=== PATIENT | male | born 1940 | race Caucasian/White ===

== ENCOUNTER → 2017-03-01 | Outpatient (CLI) | payer OTHER ==
[~2017-03-01] MED LIST: ATOR10TA82 PO; BACL10TA PO; CYM/30 PO; DICY20TA10 PO; DIPH-437 PO; FINA5TAB PO; FOLI1TAB7 PO; NXM/40 PO
[2017-03-01 12:28] LABS: ALT/SGPT 27 U/L (12-78); BLOOD UREA NITROGEN 23 mg/dl (7-18); BUN/CREATININE RATIO 23.9 (10-20); CARBON DIOXIDE 28 mmol/L (21-32); CHLORIDE 107 mmol/L (98-107); CHOLESTEROL 167 mg/dl (0-200); CREATININE 0.98 mg/dl (0.60-1.40); GLUCOSE 99 mg/dl (70-99); POTASSIUM 4.3 mmol/L (3.5-5.1); SODIUM 143 mmol/L (136-145); TRIGLYCERIDES 281 mg/dl (0-150); VERY LOW DENSITY LIPOPROT CALC 56 mg/dl
[2017-03-01 12:33] LABS: ALB/GLOB RATIO 1.2 (0.9-2); ALKALINE PHOSPHATASE 57 U/L (45-117); AST/SGOT 18 U/L (15-37); CHOLESTEROL/HDL RATIO 5.6; HDL CHOLESTEROL 30 mg/dl; LDL CHOLESTEROL CALCULATED 81 mg/dl; PROSTATE SPECIFIC ANTIGEN 0.682 ng/ml (0.000-4.000)
[2017-03-01 12:35] LABS: CALCIUM 8.7 mg/dl (8.5-10.1)
== END | disposition home or self-care (01) ==
LOC: C.LABBFT 07:50
PROVIDERS: ATTEND Nurse Practitioner Family
DX: N40.1 Benign prostatic hyperplasia with lower urinary tract symptoms (principal); G89.29 Other chronic pain; E78.00 Pure hypercholesterolemia, unspecified

== ENCOUNTER → 2017-06-14 | Outpatient (CLI) | payer OTHER ==
[~2017-06-14] MED LIST changes: -ATOR10TA82 PO; +ATOR10TA88 PO
[2017-06-14 14:52] LABS: BLOOD UREA NITROGEN 13 mg/dl (7-18); CREATININE 0.76 mg/dl (0.60-1.40)
== END | disposition home or self-care (01) ==
LOC: C.LAB 12:42
PROVIDERS: ATTEND Orthopaedic Surgery Sports Medicine
DX: Z01.812 Encounter for preprocedural laboratory examination (principal)

== ENCOUNTER → 2017-09-06 | Outpatient (CLI) | payer OTHER ==
[~2017-09-06] MED LIST changes: +ATOR10TA82 PO; -ATOR10TA88 PO; -FOLI1TAB7 PO; +FOLI1TAB8 PO
[2017-09-06 09:39] LABS: BASO % 0.4 %; BASO ABS # 0.02 K/uL (0-0.2); COMPLETE YES; EOS % 2.5 %; HEMATOCRIT 44.3 % (42-52); IG% 0.2 %; LYMPH % 36.5 %; LYMPH ABS # 1.86 K/uL (1.2-3.4); MEAN CELL VOLUME 95.7 fL (80-100); MEAN CORPUSCULAR HGB CONC 33.4 g/dl (32-36); MEAN PLATELET VOLUME 10.3 fL (7.4-10.4); MONO % 11.2 %; NEUT % 49.2 %; PLATELET COUNT 185 K/uL (130-400); RED BLOOD COUNT 4.63 M/uL (4.7-6.1)
[2017-09-06 10:19] LABS: ALT/SGPT 26 U/L (12-78); BLOOD UREA NITROGEN 19 mg/dl (7-18); BUN/CREATININE RATIO 25.3 (10-20); CALCIUM 8.5 mg/dl (8.5-10.1); CARBON DIOXIDE 27 mmol/L (21-32); CHLORIDE 107 mmol/L (98-107); CHOLESTEROL 133 mg/dl (0-200); CREATININE 0.73 mg/dl (0.60-1.40); GLUCOSE 84 mg/dl (70-99); POTASSIUM 3.9 mmol/L (3.5-5.1); SODIUM 140 mmol/L (136-145); TRIGLYCERIDES 144 mg/dl (0-150); VERY LOW DENSITY LIPOPROT CALC 29 mg/dl
[2017-09-06 10:22] LABS: ALB/GLOB RATIO 1.2 (0.9-2); ALKALINE PHOSPHATASE 60 U/L (45-117); AST/SGOT 15 U/L (15-37); HDL CHOLESTEROL 33 mg/dl; LDL CHOLESTEROL CALCULATED 71 mg/dl
== END | disposition home or self-care (01) ==
LOC: C.LAB 09:04
PROVIDERS: ATTEND Nurse Practitioner Family
DX: E78.00 Pure hypercholesterolemia, unspecified (principal); K21.9 Gastro-esophageal reflux disease without esophagitis; J31.0 Chronic rhinitis; G89.29 Other chronic pain; F32.9 Major depressive disorder, single episode, unspecified; N40.1 Benign prostatic hyperplasia with lower urinary tract symptoms

== ENCOUNTER → 2017-09-17 | Outpatient (CLI) | payer OTHER ==
[~2017-09-17] MED LIST changes: +CHOL4POW3 PO; +VLT/75 PO
--- NOTE | 2017-09-17 17:19 | DIAGNOSTIC IMAGING REPORT ---
CERVICAL WITHOUT CONTRAST CLINICAL HISTORY: 77 years-old Male presenting with M54.12 Cervical radiculopathy at [id number]. TECHNIQUE: Multisequence, multiplanar MR imaging of the cervical spine was performed without the use of intravenous contrast. IV contrast: None. COMPARISON: None. FINDINGS: Localizer images: Unremarkable. Normal cervical lordosis. Vertebral bodies maintain normal height, alignment, and bone marrow signal intensity. Mild diffuse disc desiccation without height loss. Disc osteophyte complexes noted to varying degrees at nearly every level. Multilevel degenerative changes further detailed below: C2-3: Disc osteophyte complex. No significant neural foraminal or spinal canal narrowing. C3-4: Disc osteophyte complex and uncovertebral hypertrophy result in mild effacement of the anterior thecal sac and slight contouring of the spinal cord. Mild bilateral neural foraminal narrowing, left greater than right. C4-5: Disc osteophyte complex, left uncovertebral hypertrophy and left facet arthropathy result in moderate to severe left neural foraminal narrowing as well as effacement of the anterior thecal sac and left lateral recess. No right neural foraminal narrowing. C5-6: Disc osteophyte complex. Mild lateral neural foraminal narrowing, right greater than left. Minimal effacement of the ventral thecal sac. C6-7: Minimal disc osteophyte complex and left uncovertebral hypertrophy results in mild left neural foraminal narrowing. No significant spinal canal narrowing. C7-T1: No significant spinal canal or neural foraminal narrowing. Perineural cyst may present on the right. Spinal cord maintains normal morphology and signal intensity apart from mild contouring of the anterior aspect at C3-4 as mentioned above. Craniocervical junction normal. No paraspinal muscular edema. No epidural collection. IMPRESSION: 1. Multilevel degenerative changes most significant at C4-5 where there is moderate to severe left neural foraminal narrowing. Additional neural foraminal narrowing as detailed above. Spinal canal narrowing most significant at C3-4. No evidence of spinal cord impingement. Electronically signed by: Eduin Owens M.D. 09/17/2017 5:18 PM Dictated Date/Time: 09/17/2017 5:13 PM
== END | disposition home or self-care (01) ==
LOC: C.MRI 16:29
PROVIDERS: ATTEND Nurse Practitioner Family
DX: M47.892 Other spondylosis, cervical region (principal)

== ENCOUNTER → 2017-12-09 | Outpatient (CLI) | payer OTHER | END | disposition home or self-care (01) | LOC: C.CPL 12:07 | PROVIDERS: ATTEND Orthopaedic Surgery | DX: G56.21 Lesion of ulnar nerve, right upper limb (principal) ==

== ENCOUNTER 2017-12-11 11:14 | Emergency (ER) | payer OTHER ==
[~2017-12-11] VITALS: Ht 177.8 cm; Wt 100.0 kg
[~2017-12-11 11:14] MED LIST changes: -CHOL4POW3 PO; -VLT/75 PO
[2017-12-11 11:18] VITALS: TEMP 36.7; Ht 177.8 cm; Wt 100.0 kg
[2017-12-11] MEDS ORDERED: VLT/75 PO (11:47)
[2017-12-11] MEDS ORDERED: CHOL4POW3 PO (11:48)
--- NOTE | 2017-12-11 13:28 | EMERGENCY ROOM VISIT NOTE ---
ED Visit Note First contact with patient: 11:36 I have personally seen and evaluated the patient with the physician physical therapy assistant. I agree with the diagnostic/management decisions and have personally been involved in these decisions and agree with the diagnosis.
--- NOTE | 2017-12-11 13:52 | DIAGNOSTIC IMAGING REPORT ---
R VENOUS DOPP LOWER EXT UNILAT CLINICAL HISTORY: R lower leg edema/pain pain. Edema. TECHNIQUE: Venous Doppler COMPARISON STUDY: None FINDINGS: Normal venous flow throughout. Compressibility and augmentation characteristics are unremarkable. Fibrous stranding right popliteal vein suggestive of old deep venous thrombosis. IMPRESSION: 1. Study is negative for acute deep venous thrombosis. 2. Scarring right popliteal vein The above report was generated using voice recognition software. It may contain grammatical, syntax or spelling errors. Electronically signed by: Fritz Lynn M.D. 12/11/2017 1:51 PM Dictated Date/Time: 12/11/2017 1:50 PM
[2017-12-11 14:22] VITALS: BP 138/79; PULSE 71; O2SAT 98
--- NOTE | 2017-12-12 07:19 | EMERGENCY ROOM VISIT NOTE ---
History First contact with patient: 11:36 Chief Complaint: LEG PAIN,LEG INJURY Stated Complaint: POSSIBLE BLOOD CLOT IN R LEG History of Present Illness The patient is a 77 year old white male who presents to the Emergency Room with complaints of swelling in the right lower leg that developed yesterday. He also notes some pain in his calf. Patient does go to the gym. He states he did not do any activity out of his normal routine. He does some light weightlifting as well as use of the stationary bike. He has a history of DVT and is concerned that he has another. No trauma to the right leg. He complains of pain in the dorsum of his right foot. No symptoms in the left leg. No shortness of breath. He denies any recent prolonged travel. No recent flights. No treatment yet. No other complaints. His accompanies him today. Review of Systems REVIEW OF SYSTEM: HEENT: No dizziness, visual problems, hearing loss, or tinnitus. There is no difficulty swallowing and no oral lesions are present. PULMONARY: No cough, shortness of breath, sputum production or hemoptysis. CARDIOVASCULAR: No chest pain, palpitations, shortness of breath or peripheral edema. GASTROINTESTINAL: No diarrhea, constipation, nausea, vomiting, or abdominal pain. GENITOURINARY: No dysuria, frequency, urgency or nocturia. NEUROLOGIC: No weakness, muscle tenderness, epilepsy or history of neurological problems. MUSCULOSKELETAL: No history of joint tenderness/swelling. Positive history of arthritis and arthralgias. SKIN: No rashes or lesions. PSYCHIATRIC: No history of depression or mental illness. ENDOCRINE: No history of diabetes, thyroid disorders, or abnormal hair growth. Past Medical/Surgical History Medical Problems: (1) Blood clot (2) Sciatica (3) Serum cholesterol borderline high Previous surgeries: Right total knee replacement 2010, rotator cuff repair 2012 Family History No pertinent family history Significant for diabetes, heart disease, and cancer. Parents are . Social History Smoking Status: Former Smoker Smokeless Tobacco Use: No Alcohol Use: none Drug Use: none Marital Status: Housing Status: lives with family Occupation Status: retired Current/Historical Medications Scheduled Acetaminophen/Diphenhydramine (Tylenol Pm), 2 TAB PO HS Atorvastatin (Lipitor), 10 MG PO HS Baclofen (Lioresal), 10 MG PO TID Cholestyramine (Cholestyramine), 1 DOSE PO BID Diclofenac Sod (Diclofenac Sodium Dr), 75 MG PO BID Duloxetine HCl (Cymbalta), 1 CAP PO BID Esomeprazole Magnesium (Nexium), 40 MG PO QAM Finasteride (Proscar), 5 MG PO QAM Folic Acid (Folvite), 6 MG PO BID Allergies Coded Allergies: Codeine (Verified Allergy, Mild, ITCHING, 05/13/16) Physical Exam Vital Signs Date Time Temp Pulse Resp B/P (MAP) Pulse Ox O2 Delivery O2 Flow Rate FiO2 12/11/17 14:22 71 20 138/79 98 Room Air 12/11/17 12:57 63 18 122/73 97 Room Air 12/11/17 11:18 36.7 69 16 127/80 96 Room Air Physical Exam General: Well-developed, well-nourished, elderly white male, in no acute distress. Laying on the bed. Alert and oriented. Skin: Warm and dry with good turgor. No rashes or lesions. No ecchymosis or erythema. Nothing to suggest cellulitis at this time. The patient is not diaphoretic. No abrasions. Well-healed surgical scar at the right knee. He has visible 3+ edema present in the lower leg from the knee to the foot. It is diffuse. No swelling in the left leg. Musculoskeletal: Right leg has intact function to the hip, knee, and ankle. He has visible edema present from the knee distal. He has discomfort with palpation over the lateral gastroc head. Noted palpable defect. No pain with palpation over the medial gastroc head. There is discomfort with Homans testing. Intact motor function to the toes. No pain with motion at the knee. Neurologic: Gross sensation is intact across the right lower extremity by soft touch. Peripheral pulses are 2+ at the dorsalis pedis and posterior tib. Medical Decision & Procedures ER Provider Diagnostic Interpretation: Venous Doppler ultrasound imaging obtained today of the right lower leg was read by radiology is negative for DVT. ED Course Patient was educated regarding today's findings. Conservative care measures were discussed. Venous Doppler ultrasound of the right lower leg was obtained. This was negative. Patient has no discomfort in his joints to suggest gout. He does have discomfort in the dorsum of his foot as well as the lateral gastroc head. Likelihood of gastroc strain was discussed. This may have contributed to his generalized edema. Patient was given AMY hose for compression and instructed on ice and elevation over the next several days. Follow-up with his PCP on Wednesday as scheduled. Return to the ED for any acute changes or worsening of symptoms. Patient was seen in conjunction with Dr. Deal who also evaluated the patient and concurred with today's diagnosis and treatment plan. Medical Decision Possibility of DVT, gout, heart failure, muscle tear, phlebitis, and cellulitis were considered. Impression Primary Impression: Right leg swelling Departure Information Dispostion Home / Self-Care Condition GOOD Forms HOME CARE DOCUMENTATION FORM, TYLENOL USE, IMPORTANT VISIT INFORMATION Patient Instructions My [facility] [place] Additional Instructions Apply ice intermittently 3 days, then use moist heat Elevate the leg frequently to reduce swelling Use the compression hose daily to help with edema control-they may be removed for sleep Follow up with your PCP on Wednesday as scheduled Return to the ED for any acute worsening of symptoms Gentle stretching daily for the calf and foot
== END 2017-12-11 14:29 | disposition home or self-care (01) ==
LOC: C.EDB 11:17 → C.EDC 14:29
DX: R60.0 Localized edema (principal); M79.661 Pain in right lower leg; Z86.718 Personal history of other venous thrombosis and embolism; Z96.651 Presence of right artificial knee joint; Z83.3 Family history of diabetes mellitus; Z87.891 Personal history of nicotine dependence; Z88.5 Allergy status to narcotic agent

== ENCOUNTER → 2017-12-21 | Outpatient (CLI) | payer OTHER ==
[~2017-12-21] MED LIST changes: +CHOL4POW3 PO; -DICY20TA10 PO; +VLT/75 PO
[2017-12-21 12:10] LABS: BASO % 0.4 %; BASO ABS # 0.02 K/uL (0-0.2); EOS % 2.1 %; EOS ABS # 0.12 K/uL (0-0.5); HEMATOCRIT 44.5 % (42-52); IG# 0.01 K/uL (0.00-0.02); LYMPH % 35.6 %; LYMPH ABS # 2.01 K/uL (1.2-3.4); MEAN CELL VOLUME 93.7 fL (80-100); MEAN CORPUSCULAR HEMOGLOBIN 31.6 pg (25-34); MEAN CORPUSCULAR HGB CONC 33.7 g/dl (32-36); MEAN PLATELET VOLUME 9.8 fL (7.4-10.4); MONO % 11.2 %; MONO ABS # 0.63 K/uL (0.11-0.59); NEUT % 50.5 %; NEUT ABS # 2.85 K/uL (1.4-6.5); PLATELET COUNT 205 K/uL (130-400); RED CELL DISTRIBUTION WIDTH CV 13.5 % (11.5-14.5); RED CELL DISTRIBUTION WIDTH SD 46.3 fL (36.4-46.3); WHITE BLOOD COUNT 5.64 K/uL (4.8-10.8)
[2017-12-21 12:44] LABS: ALBUMIN 3.5 gm/dl (3.4-5.0); ALT/SGPT 45 U/L (12-78); AST/SGOT 30 U/L (15-37); BLOOD UREA NITROGEN 21 mg/dl (7-18); CALCIUM 8.4 mg/dl (8.5-10.1); CARBON DIOXIDE 26 mmol/L (21-32); CREATININE 0.76 mg/dl (0.60-1.40); GLUCOSE 80 mg/dl (70-99); POTASSIUM 4.3 mmol/L (3.5-5.1); SODIUM 138 mmol/L (136-145); URIC ACID 3.8 mg/dl (2.6-7.2)
[2017-12-21 12:49] LABS: ALKALINE PHOSPHATASE 62 U/L (45-117); TOTAL PROTEIN 6.8 gm/dl (6.4-8.2)
== END | disposition home or self-care (01) ==
LOC: C.LAB 10:24
PROVIDERS: ATTEND Nurse Practitioner Family
DX: M79.606 Pain in leg, unspecified (principal)

== ENCOUNTER → 2018-05-02 | Outpatient (CLI) | payer OTHER | END | disposition home or self-care (01) | LOC: C.LABBC 12:50 | PROVIDERS: ATTEND Orthopaedic Surgery Sports Medicine | DX: M25.569 Pain in unspecified knee (principal) ==

== ENCOUNTER 2018-12-27 04:50 | Inpatient (IN) ==
--- NOTE | 2018-12-21 08:43 | PAT Medication Instructions ---
Medication Instructions Date of Service December 21, 2018 Home Medications atorvastatin 10 mg PO HS baclofen 10 mg PO TID NEEDED cholestyramine-aspartame 4 g PO BID diphenhydramine-acetaminophen [Tylenol PM Extra Strength] 1 tab PO HS NEEDED duloxetine 60 mg PO HS esomeprazole magnesium [Nexium] 40 mg PO HS finasteride 5 mg PO QAM folic acid 1 mg PO QAM gabapentin 300 mg PO HS DO NOT take the morning of surgery baclofen 10 mg PO TID NEEDED cholestyramine-aspartame 4 g PO BID finasteride 5 mg PO QAM folic acid 1 mg PO QAM Take morning of surgery NOTHING TO EAT OR DRINK AFTER MIDNIGHT Take evening before surgery atorvastatin 10 mg PO HS baclofen 10 mg PO TID NEEDED cholestyramine-aspartame 4 g PO BID diphenhydramine-acetaminophen [Tylenol PM Extra Strength] 1 tab PO HS NEEDED duloxetine 60 mg PO HS esomeprazole magnesium [Nexium] 40 mg PO HS gabapentin 300 mg PO HS Other Notes If you have any questions please call us at [phone] or [phone] or [phone] or [phone]
--- NOTE | 2018-12-21 09:32 | Anesthesiology Consultation ---
Date of Service December 21, 2018 Assessment & Plan (1) Encounter for pre-operative examination: Chart Review Chart Review: Acceptable Risk for Surgery and Patient seen in Pre Admission Testing Consults Requested medical (Gibran Mancuso (12/22)) Patient was seen by PCP's office on 12/22. Per note, "Surgical replacement of the knee is medically necessary at this time. He has no significant contraindications to proceeding with surgery and is an acceptable medical risk." Teaching & Discussion Pre-Anesthesia Teaching/Discussion Notes: Instructed NPO after midnight before surgery, except medications with 15 cc of water. Medication instructions provided according to the PAT guidelines. History Surgery Operation Date: 12/27/18 07:50 Proposed Procedures p Left Total Knee Arthroplasty - Brad Oseguera DO Height/Weight Height: 5 ft 10 in Weight: 98.9 kg Allergies Allergy/AdvReac Type Severity Reaction Status Date / Time codeine Allergy Mild ITCHING Verified 12/19/18 11:32 Medications Home Medications Medication Instructions Recorded Confirmed Last Taken atorvastatin 10 mg PO HS 12/19/18 12/19/18 Unknown baclofen 10 mg PO TID PRN 12/19/18 12/19/18 Unknown cholestyramine-aspartame 4 g PO BID 12/19/18 12/19/18 Unknown [Cholestyramine Light] diphenhydramine-acetaminophen 1 tab PO HS PRN 12/19/18 12/19/18 Unknown [Tylenol PM Extra Strength] duloxetine 60 mg PO HS 12/19/18 12/19/18 Unknown esomeprazole magnesium [Nexium] 40 mg PO HS 12/19/18 12/19/18 Unknown finasteride 5 mg PO QAM 12/19/18 12/19/18 Unknown folic acid 1 mg PO QAM 12/19/18 12/19/18 Unknown gabapentin 300 mg PO HS 12/19/18 12/19/18 Unknown Past Medical History Medical History Degenerative disc disease CERVICAL. PT STATES THAT IT HAS BEEN MONITORED, NO INTERVENTION. GERD (gastroesophageal reflux disease) History of DVT in adulthood 2013. RIGHT LEG, PT STATES HE HAD JUST HAD A LONG ROAD TRIP, MAY HAVE BEEN CAUSE. Hyperlipidemia Osteoarthritis Past Surgical History Surgical History History of carpal tunnel release History of cataract extraction with lens replacement BILATERAL History of colonoscopy History of repair of rotator cuff LEFT History of total knee replacement RIGHT Past Anesthesia History No Hx of Anesthesia Complications and No Family Hx of Anesthesia Complications History of PONV No Motion Sickness Screening History of Motion Sickness: No Social History Smoking Status: Former smoker tobacco type: cigarettes Smoking cigarettes per day: QUIT 30 YEARS AGO. HX OF 1PPD Do You Dip or Chew Tobacco: No (QUIT ~30 YEARS AGO) Hx Alcohol Use: Yes Alcohol type: wine alcohol intake frequency: holidays/special occasions only Alcohol Intake Frequency Comment: RARE SOCIAL DRINK Hx Substance Use: No substance use type: does not use Exercise / Class Metabolic Activity II 4-5 Yardwork/Stairs/Walk up hill Housework, yardwork. Able to climb FOS. Denies CP or SOB. Review of Systems Patient denies chest pain, shortness of breath, dyspnea on exertion, cough, wheezing, palpitations. +Joint Pain (Knee, Back) +Acid Reflux (controlled with prn Nexium) Physical Exam Vital Signs BP: 117/67 P: 83 R: 16 T: 97.9 SPO2: 97% on RA ENMT Thyromental Distance: < 3.5 Finger Breadths (3) Mallampati Class: I Upper and lower partial plates Neck normal visual inspection, trachea midline and + limited neck extension Respiratory normal respiratory effort Auscultation: lungs clear to auscultation bilaterally Cardiovascular Rate/Rhythm: regular rate and regular rhythm Heart Sounds: no murmur Vessels: no carotid bruit Neurologic moves all extremities Psychiatric Orientation: alert and oriented x 3 Testing Electrocardiogram Date: 05/27/18 Findings: + NSR @ (65) Chest X-Ray Date: 05/27/18 Findings: + NAD FINDINGS: The bones soft tissues and hemidiaphragms are normal. The cardiomedia stinal silhouette is normal. The lungs are clear. The pulmonary vasculature is normal. IMPRESSION: Negative chest. Laboratory Results 12/21/18 09:57 04 09:57 Blood Type A Positive 12/21/18 09:57 Antibody Screen NEGATIVE 12/21/18 09:57 PT 10.1 Seconds (9.0-12.0) 04 09:57 INR 1.0 (0.9-1.1) 12/21/18 09:57 APTT 24.5 Seconds (21.0-31.0) 12/21/18 09:57 Hemoglobin A1c 5.7 % (4.5-5.6) H 12/21/18 09:57 Urine Color Yellow 12/21/18 09:57 Urine Appearance Clear (Clear) 12/21/18 09:57 Urine pH 7.0 (4.5-7.5) 12/21/18 09:57 Ur Specific [place] 1.016 (1.000-1.030) 12/21/18 09:57 Urine Protein Negative (Negative) 12/21/18 09:57 Urine Glucose (UA) Negative (Negative) 12/21/18 09:57 Urine Ketones Negative (Negative) 12/21/18 09:57 Urine Nitrite Negative (Negative) 12/21/18 09:57 Ur Leukocyte Esterase Negative (Negative) 12/21/18 09:57 Urine WBC (Auto) 0 /hpf (0-5) 12/21/18 09:57 Urine RBC (Auto) 5-10 /hpf (0-4) H 12/21/18 09:57 U Hyaline Cast (Auto) 0 /lpf (0-5) 12/21/18 09:57 U Epithel Cells (Auto) 0-5 /lpf (0-5) 12/21/18 09:57 Urine Bacteria (Auto) Negative (Negative) 12/21/18 09:57 12/21/18 09:57 Urine Culture - Final Urine,Clean Catch No growth - less than 1,000 colonies/mL.
[2018-12-21 10:29] LABS: Basophils # (auto) 0.02 K/uL (0-0.2); Basophils % (auto) 0.4 %; Eosinophils # (auto) 0.08 K/uL (0-0.5); Eosinophils % (auto) 1.7 %; Hematocrit (blood only) 45.4 % (42-52); Hemoglobin 15.2 g/dL (14.0-18.0); Immature Granulocytes # (auto) 0.01 K/uL (0.00-0.02); Immature Granulocytes % (auto) 0.2 %; Lymphocytes # (auto) 1.82 K/uL (1.2-3.4); Lymphocytes % (auto) 37.9 %; Mean Corpuscular Hgb Conc 33.5 g/dL (32-36); Mean Corpuscular Volume 93.8 fL (80-100); Mean Platelet Volume 10.1 fL (7.4-10.4); Monocytes # (auto) 0.64 K/uL (0.11-0.59); Monocytes % (auto) 13.3 %; Neutrophils # (auto) 2.23 K/uL (1.4-6.5); Neutrophils % (auto) 46.5 %; Platelet Count 205 K/uL (130-400); RDW Coefficient of Variation 13.4 % (11.5-14.5); Red Blood Count 4.84 M/uL (4.7-6.1)
[2018-12-21 10:33] LABS: Appearance Urine Clear (Clear); Bacteria Urine Automated Negative (Negative); Bilirubin Urine Negative (Negative); Blood Urine Trace (Negative); Cast Urine Automated 0 /lpf (0-5); Color Urine Yellow; Epithelial Cell Urine Auto 0-5 /lpf (0-5); Glucose Urine UA Negative (Negative); Ketones Urine Negative (Negative); Leukocyte Esterase Urine Negative (Negative); Nitrite Urine Negative (Negative); Protein Urine Negative (Negative); Specific Gravity Urine 1.016 (1.000-1.030); Urobilinogen Urine Negative (Negative); WBC Urine Automated 0 /hpf (0-5)
[2018-12-21 10:42] LABS: Partial Thromboplastin Ratio 0.9; Partial Thromboplastin Time 24.5 Seconds (21.0-31.0); Prothrombin Time 10.1 Seconds (9.0-12.0)
[2018-12-21 10:44] LABS: Albumin Level 3.6 gm/dl (3.4-5.0); BUN Creatinine Ratio 12.9 (10-20); Creatinine Clr Calc Pharmacy 93.8 ml/min; Est GFR (African American) 101.1; Est GFR (Non-African American) 87.2; Potassium 4.4 mmol/L (3.5-5.1)
[2018-12-21 10:54] LABS: Estimated Average Glucose 117 mg/dl; Hemoglobin A1C 5.7 % (4.5-5.6)
--- NOTE | 2018-12-26 07:51 | History & Physical Report ---
Date of Service December 26, 2018 Date of Surgery: 12/27/18 Assessment & Plan (1) Osteoarthritis of left knee: Risks and benefits of procedure discussed in detail today, patient would like to proceed with a left total knee replacement at [facility] on 12-27-18. has already obtained PATs at [facility]. Patient had a DVT after his Right TKA, will place on Xarelto x 1 month post-op. Will schedule f/u 2 weeks post op for routine post-operative care and x-ray, sooner if having any proble ms. will make arrangements for OPPT at the time of discharge. At this point in time, has failed conservative measures and would like to proceed with surgical intervention. History of Present Illness Chief Complaint: Left knee pain Primary Care Provider: Gibran Mancuso III, CRNP Mr Brar is a 78 year old male who complains of left knee pain, presents for pre-op evaluation prior to a left total knee replacement at [facility] on 12-27-18. He presents with pain, crepitus, decreased rom and stiffness on the left side. He states that the symptoms have been chronic non-traumatic. The symptoms occur constantly with intermittent worsening. Currently the patient states that the symptoms are severe. The pain is described as aching , sometimes sharp and throbbing. The symptoms occur continuously. He rates his current pain as 8/10. The symptoms are aggravated by ascending stairs, daily activities, descending stairs, first steps while awake, weight bearing and walking. [place] states that the symptoms are relieved by no specific activity. In addition to left knee pain the patient is also experiencing crepitus, decreased mobility, joint pain, instability, limping, pain after activity and stiffness. Prior pain medications include Tylenol, and prior NSAIDs include Diclofenac & Diclofenac Gel, and IBU. He has been treated with Pt. has had Visco and Cortisone in the past on the left side. Patient has undergone previous [place] [address] Zamudio. Allergies Allergy/AdvReac Type Severity Reaction Status Date / Time codeine Allergy Mild ITCHING Verified 12/19/18 11:32 Home Medications Home Medications Medication Instructions Recorded Confirmed Type atorvastatin 10 mg PO HS 12/19/18 12/19/18 History baclofen 10 mg PO TID PRN 12/19/18 12/19/18 History cholestyramine-aspartame 4 g PO BID 12/19/18 12/19/18 History [Cholestyramine Light] diphenhydramine-acetaminophen 1 tab PO HS PRN 12/19/18 12/19/18 History [Tylenol PM Extra Strength] duloxetine 60 mg PO HS 12/19/18 12/19/18 History esomeprazole magnesium [Nexium] 40 mg PO HS 12/19/18 12/19/18 History finasteride 5 mg PO QAM 12/19/18 12/19/18 History folic acid 1 mg PO QAM 12/19/18 12/19/18 History gabapentin 300 mg PO HS 12/19/18 12/19/18 History Past Med/Surg History Medical History Degenerative disc disease CERVICAL. PT STATES THAT IT HAS BEEN MONITORED, NO INTERVENTION. GERD (gastroesophageal reflux disease) History of DVT in adulthood 2013. RIGHT LEG, PT STATES HE HAD JUST HAD A LONG ROAD TRIP, MAY HAVE BEEN CAUSE. Hyperlipidemia Osteoarthritis Surgical History History of arthroscopy of left shoulder May 2018 History of carpal tunnel release History of cataract extraction with lens replacement BILATERAL History of colonoscopy History of repair of rotator cuff LEFT History of total knee replacement RIGHT Social History Preferred Language: Kiswahili Communication Ability: Effective Color Grinder Required: No Beliefs That Will Affect Care: None Current Living Situation: Spouse Other Information That Helps Us Care for You: No Feels Safe at Home: No Safety Concerns: Feels Safe At This Time Smoking Status: Former smoker Hx Alcohol Use: Yes Hx Substance Use: No Review of Systems All systems reviewed & are unremarkable except as noted in HPI & below Constitutional: no fever, no chills and no sweats Respiratory: no cough and no dyspnea Cardiovascular: no chest pain, no dyspnea and no orthopnea Gastrointestinal: no abdominal pain, no nausea and no vomiting Musculoskeletal: as per Subjective / HPI Integumentary: no rash and no lesions Physical Exam Vital Signs (Past 24 Hours): Ht: 5ft 10 inches Wt: 98.9kg BP: 122/82 Pule: 72 Constitutional: WD/WN, vitals as above no acute distress Respiratory: normal respiratory effort, lungs clear to auscultation no respiratory distress, no labored breathing and does not use accessory muscles Cardiovascular: RRR, no murmur, no edema Gastrointestinal (Abdomen): normal bowel sounds, soft, nontender, no he patosplenomegaly Musculoskeletal: Left Knee Physical Exam Patient ambulates with a limp, no assistance devices, overall varus alignment. There is no erythema or warmth, no ecchymosis noted, +2 effusion, maximum tenderness over the medial joint line. positive crepitation with motion, giovanni's Negative, posterior drawer negative. positive mcmurrays medially, negative anterior drawer, knee stable with valgus/varus stress. no extensor lag. pain with active range of motion, AROM 0/3/120, Passive ROM 0/3/120. No pain with active/passive ROM of ankle. Lower Extremity Strength normal. Lower Extremity Neuro-vascular is normal Results & Data Diagnostic Findings Left Knee X-ray from September 2018 showing advanced degenerative changes to the left knee, greatest medial compartments and patellofemoral joint. There is joint space narrowing, osteophyte formation and subchondral sclerosis. no acute bony pathology noted. there are no loose bodies.
[2018-12-27] MEDS ORDERED: TRANEXAMIC ACID 1,000 MG **IV Pre-op IV SCH (06:00)
[2018-12-27] MEDS ORDERED: GABAPENTIN 300 MG PO SCH (06:00)
[2018-12-27] MEDS ORDERED: CEFAZOLIN 2000MG 2,000 MG/15 ML SYR IV SCH (06:00)
[2018-12-27] MEDS ORDERED: LR 500ML BOLUS, THEN 15ML/HR IV SCH (06:00)
[2018-12-27] MEDS ORDERED: FAMOTIDINE 20 MG TAB PO SCH (06:00)
[2018-12-27] MEDS ORDERED: CeleBREX 200 MG CAP PO SCH (06:00)
[2018-12-27] MEDS ORDERED: ROPIVACAINE 0.5% HCL/PF 150 MG, BUPIVACAINE 0.5% MPF 30 ML, EPINEPHrine 30MG/30ML (OR U... INFIL SCH (06:00)
[2018-12-27] MEDS ORDERED: dexAMETHasone 4 MG TAB PO SCH (06:00)
[2018-12-27] MEDS ORDERED: ACETAMINOPHEN 500 MG TAB PO SCH (06:00)
[2018-12-27] MEDS ORDERED: BUPIVACAINE 0.5 % 5 MG/1 ML PF 10ML VIAL ONE (06:30)
[2018-12-27] MEDS ORDERED: ROPIVACAINE 0.5% 5 MG/ML 30 ML VIAL ONE (06:30)
[2018-12-27] MEDS ORDERED: TRANEXAMIC ACID 1,000 MG **IV Intra-op IV SCH (06:30)
[2018-12-27] MEDS ORDERED: HYDROmorphone INJ 1 MG/ML SYRINGE IV PRN (06:50)
[2018-12-27] MEDS ORDERED: ePHEDrine sulfate 50 MG/ML AMP IV PRN (06:50)
[2018-12-27] MEDS ORDERED: ATROPINE SULFATE 0.1 MG/ML 10ML SYR IV PRN (06:50)
[2018-12-27] MEDS ORDERED: KETOROLAC 30 MG/ML VIAL IV PRN (06:50)
[2018-12-27] MEDS ORDERED: PHENYLEPHRINE 100MCG/ML 5ML SYR IV PRN (06:50)
[2018-12-27] MEDS ORDERED: POVIDONE-IODINE OP SOLN 30 ML BTL ONE (06:57)
[2018-12-27] MEDS ORDERED: BACITRACIN INJ 50,000 UNIT VIAL ONE (06:57)
[2018-12-27] MEDS ORDERED: ORTHO JOINT ANESTHETIC ONE (06:57)
[2018-12-27] MEDS ORDERED: MIDAZOLAM HCL 1 MG/ML 2ML VIAL ONE (06:57)
--- NOTE | 2018-12-27 07:11 | History & Physical Bridge Note ---
Date of Service December 27, 2018 History & Physical Bridge Note I have examined the patient, reviewed the History & Physical and in the interval since the performance of the History & Physical I have noted the following changes of clinical significance: no changes noted
[2018-12-27] MEDS ORDERED: LIDOCAINE HCL 2% 2 ML VIAL/AMP(20MG/ML) INFIL ONE (07:41)
[2018-12-27] MEDS ORDERED: PROPOFOL IV EMULSION 10 MG/ML 20 ML VIAL IV ONE (07:41)
--- NOTE | 2018-12-27 08:25 | Operative Report ---
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 Specimens Bone and cartilage Drains Medium bore Hemovac Complications none Disposition Accompanied Patient To Recovery: No Disposition: Recovery Room Indications Patient presents as a 78-year-old male being seen by failed attempts at conservative management including physical therapy anti-inflammatories relative rest activity modification corticosteroid injections Visco supplementation the above intraoperative findings were noted patient presents for total knee arthroplasty Description of Procedure After proper prepping and draping of the left lower extremity anterior midline incision was made over the region of the extensor extensor mechanism after meticulous hemostasis was obtained and maintained in subcutaneous tissues a medial parapatellar incision was made The patella was subluxed lateralward the medial lateral gutter were cleaned from any hypertrophic synovitis and scar tissue of the distal femoral block was placed and the distal femoral osteotomy cut was made subsequently the chamfers anterior and posterior osteotomy cuts were made utilizing the 4-in-1 block the tibia was subsequently subluxed anteriorward medial and ateral meniscal remnants were excised in their entirety remnants of the anterior and posterior cruciate ligaments were excised in their entirety excellent exposure of the proximal tibia was obtained the tibial osteotomy guide was placed on the proximal tibial osteotomy cut was made once again the knee was irrigated with copious amounts of sterile saline solution the patella was subsequently everted lateralward thickened scar tissue around the patella was removed the patella was subsequently cut utilizing a freehand technique and was drilled prepared for final preparation and placement of patella socially flexion-extension gaps were checked and the equal and symmetric trials were placed to the appropriate femoral and tibial trials with poly-spacer being placed for equal flexion and extension gaps and full range of motion including extension to 0 and flexion to 140 the trial components after having been taken to recovery range of motion was subsequently removed meticulous hemostasis was obtained and maintained subsequently a knee block injection of joint cocktail including ropivacaine 0.5% 150 mg. Bupivacaine 0.5% epinephrine 1-200,030 mL's toradol 30 mg dexamethasone 4 mg ketamine 10 mg clonidine 100 micrograms normal saline solution 30 mg was infiltrated into the soft tissues of the posterior knee medial lateral gutters and periosteal synovium special attention was paid to protect neurovascular structures at all times subsequently trial components having been removed the knee was irrigated with sterile saline solution. debris was removed the proximal tibia was subsequently prepared and was made ready for the placement of the tibial component tibial component was also cemented and tamped into position the femoral component was subsequently placed and cemented in the position the patellar component was subsequently cemented in position because hemostasis once again obtained and maintained wound having been thoroughly irrigated with debridement and debridement lavage was performed as well as a medial parapatellar incision closed with #1 Vicryl in interrupted fashion subcutaneous was closed with #2 Vicryl skin was closed with skin clips. PA-C was necessary for prepping and drapping as well as wound closure of deep fascia Sub cutaneous tissue and skin and was necessary for the case. A sterile compressive dressing was placed patient was taken to recovery in stable condition of report dictated by Oumar I attest to the content of the Intraoperative Record and any orders documented therein. Any exceptions are noted below. I attest to the content of the Intraoperative Record and any orders documented therein. Any exceptions are noted below.
--- NOTE | 2018-12-27 09:54 | XRay Report ---
XR knee LT 2V routine CLINICAL HISTORY: Surgical Post Op COMPARISON: None. DISCUSSION: There are postsurgical changes of a total left knee arthroplasty and patellar resurfacing . The femoral and tibial components appear well seated. Overlying surgical drains are evident. There is air within the soft tissues consistent with recent surgery. IMPRESSION: Postsurgical changes of a total left knee arthroplasty. Electronically signed by: Charles Samaniego M.D. 12/27/2018 9:53 AM
--- NOTE | 2018-12-27 10:08 | Anesthesiology Progress Note ---
Date of Service December 27, 2018 Anesthesia Post Procedure Vital Signs Vital Signs: Temp Pulse Pulse Resp BP Pulse Ox 12/27/18 09:55 36.4 C L 78 15 109/66 95 12/27/18 09:45 79 16 99/58 L 94 12/27/18 09:35 83 16 99/62 L 96 12/27/18 09:25 79 14 96/68 L 97 12/27/18 09:15 82 13 104/62 94 12/27/18 09:05 36.1 C L 88 10 L 96/57 L 95 12/27/18 05:24 36.6 C 79 20 113/77 92 Pain Intensity Left Knee: Pain Intensity: 0 Notes Mental Status: alert / awake / arousable Patient Amnestic to Procedure: Yes Nausea / Vomiting: adequately controlled Pain: adequately controlled Airway Patency, RR, SpO2: stable & adequate BP & HR: stable & adequate Hydration State: stable & adequate Neuraxial Anesthesia: was administered and sensory block is resolving Anesthetic Complications: no major complications apparent
[2018-12-27] MEDS ORDERED: NALOXONE HCL 0.4 MG/1 ML VIAL/CARP IV PRN (10:14)
[2018-12-27] MEDS ORDERED: METOCLOPRAMIDE HCL INJ 5 MG/ML 2 ML VIAL IV PRN (10:14)
[2018-12-27] MEDS ORDERED: ONDANSETRON INJ 2 MG/ML 2 ML VIAL IV PRN (10:14)
[2018-12-27] MEDS ORDERED: BISACODYL 10 MG SUPP PR PRN (10:14)
[2018-12-27] MEDS ORDERED: MAGNESIUM HYDROXIDE SUSP 30 ML UDC PO PRN (10:14)
[2018-12-27] MEDS: SODIUM CHLORIDE 0.9% 1000ML 1,000 ML IV SCH (10:58)
[2018-12-27] MEDS: KETOROLAC TROMETHAMINE 15 MG/ML VIAL IV SCH ×3 (11:01→22:46)
[2018-12-27] MEDS: OXYCODONE HCL IR 5 MG TAB (IMMEDIATE RELEASE) PO PRN ×3 (12:49→17:41)
[2018-12-27] MEDS: ACETAMINOPHEN 500 MG TAB PO SCH ×2 (13:06→21:58)
[2018-12-27] MEDS: CEFAZOLIN 2000MG 2,000 MG/15 ML SYR IV SCH ×2 (14:13→22:46)
[2018-12-27] MEDS ORDERED: TRAZODONE HCL 50 MG TAB PO PRN (18:56)
[2018-12-27] MEDS: SENNA 8.6 MG TAB PO SCH (20:58)
[2018-12-27] MEDS: DULOXETINE HCL 60 MG CAP PO SCH (20:59)
[2018-12-27] MEDS: DOCUSATE SODIUM 100 MG CAP PO SCH (20:59)
[2018-12-27] MEDS: ATORVASTATIN 10 MG TAB PO SCH (20:59)
[2018-12-27] MEDS: GABAPENTIN 300 MG CAP PO SCH (21:00)
[2018-12-28] MEDS: OXYCODONE HCL IR 5 MG TAB (IMMEDIATE RELEASE) PO PRN ×6 (00:54→22:52)
[2018-12-28] MEDS: ACETAMINOPHEN 500 MG TAB PO SCH ×3 (05:55→20:31)
[2018-12-28] MEDS: KETOROLAC TROMETHAMINE 15 MG/ML VIAL IV SCH (05:55)
[2018-12-28 06:12] LABS: Hematocrit (blood only) 39.3 % (42-52); Hemoglobin 13.1 g/dL (14.0-18.0); Mean Corpuscular Hgb Conc 33.3 g/dL (32-36); Mean Corpuscular Volume 93.3 fL (80-100); Mean Platelet Volume 9.8 fL (7.4-10.4); Platelet Count 175 K/uL (130-400); RDW Standard Deviation 44.5 fL (36.4-46.3); Red Blood Count 4.21 M/uL (4.7-6.1); White Blood Count 9.97 K/uL (4.8-10.8)
[2018-12-28 06:29] LABS: BUN Creatinine Ratio 18.2 (10-20); Calcium 8.6 mg/dl (8.5-10.1); Creatinine Clr Calc Pharmacy 80.3 ml/min; Est GFR (African American) 93.3; Est GFR (Non-African American) 80.5; Potassium 4.2 mmol/L (3.5-5.1)
[2018-12-28] MEDS: SODIUM CHLORIDE 0.9% 1000ML 1,000 ML IV SCH (06:54)
--- NOTE | 2018-12-28 08:08 | Orthopedic Progress Note ---
Date of Service December 28, 2018 Assessment & Plan (1) Osteoarthritis of left knee: Postop day 1 status post left TKA. Patient will be started on PT and OT protocols. Weightbearing as tolerated. DVT prophylaxis with rivaroxaban, SCDs, AMY hose. Pain management with oxycodone, hydromorphone, acetaminophen. DC plans-patient is planning on outpatient PT upon discharge to home. Subjective Postop day 1 status post left total knee arthroplasty. Patient was initially seen in the hallway ambulating independently. Upon entering his room, he is lying in bed. Awake and alert and oriented. He has no overt complaints. Pain is controlled. He denies shortness of breath, chest pain, lightheadedness. Physical Exam Vital Signs (Past 24 Hours): Last Vital Signs Temp 36.5 C 12/28/18 06:45 Pulse 106 H 12/28/18 06:45 Resp 18 12/28/18 06:45 BP 120/73 12/28/18 06:45 Pulse Ox 96 12/28/18 06:45 Physical Exam: Dressings are clean dry and intact. Neurovascular is intact. Calves are soft nontender. Toes are mobile.
--- NOTE | 2018-12-28 08:24 | Anesthesiology Progress Note ---
Date of Service December 28, 2018 Anesthesia Post Procedure Vital Signs Vital Signs: Temp Pulse Pulse Pulse Resp BP Pulse Ox 12/28/18 06:45 36.5 C 106 H 18 120/73 96 12/28/18 02:37 36.5 C 75 16 136/75 98 12/27/18 22:59 36.5 C 78 16 126/71 94 12/27/18 19:50 36.6 C 79 16 124/76 95 12/27/18 14:58 36.4 C L 76 16 122/74 95 12/27/18 13:14 79 18 123/78 96 12/27/18 12:36 82 18 120/76 99 12/27/18 11:10 83 16 126/75 92 12/27/18 10:43 36.6 C 78 16 117/72 97 12/27/18 10:10 36.6 C 80 18 110/64 91 12/27/18 09:55 36.4 C L 78 15 109/66 95 12/27/18 09:45 79 16 99/58 L 94 12/27/18 09:35 83 16 99/62 L 96 12/27/18 09:25 79 14 96/68 L 97 12/27/18 09:15 82 13 104/62 94 12/27/18 09:05 36.1 C L 88 10 L 96/57 L 95 Pain Intensity Left Knee: Pain Intensity: 2 Notes Mental Status: alert / awake / arousable and participated in evaluation Patient Amnestic to Procedure: Yes Nausea / Vomiting: adequately controlled Pain: adequately controlled Airway Patency, RR, SpO2: stable & adequate BP & HR: stable & adequate Hydration State: stable & adequate Neuraxial Anesthesia: sensory block resolved Anesthetic Complications: Pt Satisfied with anesthetic care
[2018-12-28] MEDS: FOLIC ACID 1 MG TAB PO SCH (08:26)
[2018-12-28] MEDS: DOCUSATE SODIUM 100 MG CAP PO SCH ×2 (08:26→20:32)
[2018-12-28] MEDS: FINASTERIDE 5 MG TAB PO SCH (08:26)
[2018-12-28] MEDS: MULTIVITAMIN TAB PO SCH (08:26)
[2018-12-28] MEDS: RIVAROXABAN 10 MG TABLET PO SCH (08:26)
[2018-12-28] MEDS: HYDROmorphone INJ 1 MG/ML SYRINGE IV PRN (11:47)
[2018-12-28] MEDS ORDERED: PANTOprazole 40 MG TAB PO ONE (16:00)
[2018-12-28] MEDS: SENNA 8.6 MG TAB PO SCH (20:31)
[2018-12-28] MEDS: GABAPENTIN 300 MG CAP PO SCH (20:32)
[2018-12-28] MEDS: DULOXETINE HCL 60 MG CAP PO SCH (20:32)
[2018-12-28] MEDS: ATORVASTATIN 10 MG TAB PO SCH (20:32)
[2018-12-29] MEDS: HYDROmorphone INJ 1 MG/ML SYRINGE IV PRN (01:11)
[2018-12-29] MEDS: ACETAMINOPHEN 500 MG TAB PO SCH (05:48)
--- NOTE | 2018-12-29 07:04 | Orthopedic Progress Note ---
Date of Service December 29, 2018 Assessment & Plan (1) Osteoarthritis of left knee: Postop day 2 status post left TKA. Patient will cont PT and OT protocols. Weightbearing as tolerated. DVT prophylaxis with rivaroxaban, SCDs, AMY hose. Pain management with oxycodone, hydromorphone, acetaminophen. DC plans-patient is planning on outpatient PT , likely after PT today. Subjective Postop day 2 status post left total knee arthroplasty. denies CP/SOB Denies Fever/Chills Musculoskeletal: as per Subjective / HPI Physical Exam Vital Signs (Past 24 Hours): Last Vital Signs Temp 36.6 C 12/29/18 06:08 Pulse 107 H 12/29/18 06:08 Resp 16 12/29/18 06:08 BP 113/65 12/29/18 06:08 Pulse Ox 95 12/29/18 06:08 Constitutional: WD/WN, vitals as above Musculoskeletal: Left Knee: NVDI, calf SNT, negative sascha sign. DP palpable, able to wiggle toes/ankle movement without difficulty. ROBYN dressing clean dry and intact. expected post-operative bruising noted. Results & Data Laboratory Results Laboratory Results WBC 9.97 K/uL (4.8-10.8) 12/28/18 05:48 RBC 4.21 M/uL (4.7-6.1) L 12/28/18 05:48 Hgb 13.1 g/dL (14.0-18.0) L 12/28/18 05:48 Hct 39.3 % (42-52) L 12/28/18 05:48 MCV 93.3 fL (80-100) 12/28/18 05:48 MCH 31.1 pg (25-34) 12/28/18 05:48 MCHC 33.3 g/dL (32-36) 12/28/18 05:48 RDW Std Deviation 44.5 fL (36.4-46.3) 12/28/18 05:48 RDW Coeff of Joce 13.0 % (11.5-14.5) 12/28/18 05:48 Plt Count 175 K/uL (130-400) 12/28/18 05:48 MPV 9.8 fL (7.4-10.4) 12/28/18 05:48 Immature Gran % (Auto) 0.2 % 12/21/18 09:57 Neut % (Auto) 46.5 % 12/21/18 09:57 Lymph % (Auto) 37.9 % 12/21/18 09:57 Starr % (Auto) 13.3 % 12/21/18 09:57 Eos % (Auto) 1.7 % 12/21/18 09:57 Baso % (Auto) 0.4 % 12/21/18 09:57 Immature Gran # (Auto) 0.01 K/uL (0.00-0.02) 12/21/18 09:57 Neut # (Auto) 2.23 K/uL (1.4-6.5) 12/21/18 09:57 Lymph # (Auto) 1.82 K/uL (1.2-3.4) 12/21/18 09:57 Starr # (Auto) 0.64 K/uL (0.11-0.59) H 12/21/18 09:57 Eos # (Auto) 0.08 K/uL (0-0.5) 12/21/18 09:57 Baso # (Auto) 0.02 K/uL (0-0.2) 12/21/18 09:57 PT 10.1 Seconds (9.0-12.0) 12/21/18 09:57 INR 1.0 (0.9-1.1) 12/21/18 09:57 APTT 24.5 Seconds (21.0-31.0) 12/21/18 09:57 PTT Ratio 0.9 12/21/18 09:57 Sodium 141 mmol/L (136-145) 12/28/18 05:48 Potassium 4.2 mmol/L (3.5-5.1) 12/28/18 05:48 Chloride 108 mmol/L (98-107) H 12/28/18 05:48 Carbon Dioxide 28 mmol/L (21-32) 12/28/18 05:48 Anion Gap 5.0 (3-11) 12/28/18 05:48 BUN 17 mg/dl (7-18) 12/28/18 05:48 Creatinine 0.92 mg/dl (0.6-1.4) 12/28/18 05:48 Est Cr Clr Drug Dosing 80.3 ml/min 12/28/18 05:48 Est GFR ( Amer) 93.3 12/28/18 05:48 Est GFR (Non-Af Amer) 80.5 12/28/18 05:48 BUN/Creatinine Ratio 18.2 (10-20) 12/28/18 05:48 Glucose 111 mg/dl (70-99) H 12/28/18 05:48 Estimat Average Glucose 117 mg/dl 12/21/18 09:57 Hemoglobin A1c 5.7 % (4.5-5.6) H 12/21/18 09:57 Calcium 8.6 mg/dl (8.5-10.1) 12/28/18 05:48 Albumin 3.6 gm/dl (3.4-5.0) 12/21/18 09:57 Urine Color Yellow 12/21/18 09:57 Urine Appearance Clear (Clear) 12/21/18 09:57 Urine pH 7.0 (4.5-7.5) 12/21/18 09:57 Ur Specific [place] 1.016 (1.000-1.030) 12/21/18 09:57 Urine Protein Negative (Negative) 12/21/18 09:57 Urine Glucose (UA) Negative (Negative) 12/21/18 09:57 Urine Ketones Negative (Negative) 12/21/18 09:57 Urine Blood Trace (Negative) H 12/21/18 09:57 Urine Nitrite Negative (Negative) 12/21/18 09:57 Urine Bilirubin Negative (Negative) 12/21/18 09:57 Urine Urobilinogen Negative (Negative) 12/21/18 09:57 Ur Leukocyte Esterase Negative (Negative) 12/21/18 09:57 Urine WBC (Auto) 0 /hpf (0-5) 12/21/18 09:57 Urine RBC (Auto) 5-10 /hpf (0-4) H 12/21/18 09:57 U Hyaline Cast (Auto) 0 /lpf (0-5) 12/21/18 09:57 U Epithel Cells (Auto) 0-5 /lpf (0-5) 12/21/18 09:57 Urine Bacteria (Auto) Negative (Negative) 12/21/18 09:57 Blood Type A Positive 12/21/18 09:57 Antibody Screen NEGATIVE 12/21/18 09:57
--- NOTE | 2018-12-29 07:16 | Discharge Summary ---
Date of Service Date of Discharge: December 29, 2018 Date of Admission: 12-27-18 Admission HPI Per Admitting Provider Mr Brar is a 78 year old male who complains of left knee pain, presents for pre-op evaluation prior to a left total knee replacement at [facility] on 12-27-18. He presents with pain, crepitus, decreased rom and stiffness on the left side. He states that the symptoms have been chronic non-traumatic. The symptoms occur constantly with intermittent worsening. Currently the patient states that the symptoms are severe. The pain is described as aching , sometimes sharp and throbbing. The symptoms occur continuously. He rates his current pain as 8/10. The symptoms are aggravated by ascending stairs, daily activities, descending stairs, first steps while awake, weight bearing and walking. [place] states that the symptoms are relieved by no specific activity. In addition to left knee pain the patient is also experiencing crepitus, decreased mobility, joint pain, instability, limping, pain after activity and stiffness. Prior pain medications include Tylenol, and prior NSAIDs include Diclofenac & Diclofenac Gel, and IBU. He has been treated with Pt. has had Visco and Cortisone in the past on the left side. Patient has undergone previous [place] [address] Zamudio. Principal Diagnosis left knee osteoarthritis Discharge Exam Constitutional WD/WN, vitals as above no acute distress Musculoskeletal left knee: NVDI, calf SNT, negative sascha sign. DP palpable, able to wiggle toes/ankle movement without difficulty. ROBYN dressing clean dry and intact. expected post-operative bruising noted. Discharge Data Allergies Allergy/AdvReac Type Severity Reaction Status Date / Time codeine Allergy Mild ITCHING Verified 12/27/18 05:17 Consultations 12/27/18 10:14 Consult Case Management - Discharge Planning Routine Procedures Performed Operation Date: 12/27/18 07:15 Actual Procedures p Left Total Knee Arthroplasty(Left) - Brad Oseguera DO Ordered Studies 12/27/18 05:00 US - OR guided needle placemen Routine Hospital Course (1) Osteoarthritis of left knee: Postop day 2 status post left TKA. Patient will cont PT and OT protocols. Weightbearing as tolerated. DVT prophylaxis with rivaroxaban, SCDs, AMY hose. Pain management with oxycodone, hydromorphone, acetaminophen. DC plans-patient is planning on outpatient PT , likely after PT today. Patient was a same day admission after undergoing a successful left TKA. He tolerated the procedure well. Post-operatively, his activity was progressed and well tolerated. Please refer to daily progress notes and PT notes for complete details. After exam on 12/29/18, patient felt to be stable for discharge home with outpatient PT. Patient will f/u in the office in 2 weeks for further evaluation including x-rays and incision check, sooner if having any issues or concerns. Below are pertinent labs/studies during their hospital stay: Laboratory Results WBC 9.97 K/uL (4.8-10.8) 12/28/18 05:48 RBC 4.21 M/uL (4.7-6.1) L 12/28/18 05:48 Hgb 13.1 g/dL (14.0-18.0) L 12/28/18 05:48 Hct 39.3 % (42-52) L 12/28/18 05:48 MCV 93.3 fL (80-100) 12/28/18 05:48 MCH 31.1 pg (25-34) 12/28/18 05:48 MCHC 33.3 g/dL (32-36) 12/28/18 05:48 RDW Std Deviation 44.5 fL (36.4-46.3) 12/28/18 05:48 RDW Coeff of Joce 13.0 % (11.5-14.5) 12/28/18 05:48 Plt Count 175 K/uL (130-400) 12/28/18 05:48 MPV 9.8 fL (7.4-10.4) 12/28/18 05:48 Immature Gran % (Auto) 0.2 % 12/21/18 09:57 Neut % (Auto) 46.5 % 12/21/18 09:57 Lymph % (Auto) 37.9 % 12/21/18 09:57 [place] % (Auto) 13.3 % 12/21/18 09:57 Eos % (Auto) 1.7 % 12/21/18 09:57 Baso % (Auto) 0.4 % 12/21/18 09:57 Immature Gran # (Auto) 0.01 K/uL (0.00-0.02) 12/21/18 09:57 Neut # (Auto) 2.23 K/uL (1.4-6.5) 12/21/18 09:57 Lymph # (Auto) 1.82 K/uL (1.2-3.4) 12/21/18 09:57 [place] # (Auto) 0.64 K/uL (0.11-0.59) H 12/21/18 09:57 Eos # (Auto) 0.08 K/uL (0-0.5) 12/21/18 09:57 Baso # (Auto) 0.02 K/uL (0-0.2) 12/21/18 09:57 PT 10.1 Seconds (9.0-12.0) 12/21/18 09:57 INR 1.0 (0.9-1.1) 12/21/18 09:57 APTT 24.5 Seconds (21.0-31.0) 12/21/18 09:57 PTT Ratio 0.9 12/21/18 09:57 Sodium 141 mmol/L (136-145) 12/28/18 05:48 Potassium 4.2 mmol/L (3.5-5.1) 12/28/18 05:48 Chloride 108 mmol/L (98-107) H 12/28/18 05:48 Carbon Dioxide 28 mmol/L (21-32) 12/28/18 05:48 Anion Gap 5.0 (3-11) 12/28/18 05:48 BUN 17 mg/dl (7-18) 12/28/18 05:48 Creatinine 0.92 mg/dl (0.6-1.4) 12/28/18 05:48 Est Cr Clr Drug Dosing 80.3 ml/min 12/28/18 05:48 Est GFR ( Amer) 93.3 12/28/18 05:48 Est GFR (Non-Af Amer) 80.5 12/28/18 05:48 BUN/Creatinine Ratio 18.2 (10-20) 12/28/18 05:48 Glucose 111 mg/dl (70-99) H 12/28/18 05:48 Estimat Average Glucose 117 mg/dl 12/21/18 09:57 Hemoglobin A1c 5.7 % (4.5-5.6) H 12/21/18 09:57 Calcium 8.6 mg/dl (8.5-10.1) 12/28/18 05:48 Albumin 3.6 gm/dl (3.4-5.0) 12/21/18 09:57 Urine Color Yellow 12/21/18 09:57 Urine Appearance Clear (Clear) 12/21/18 09:57 Urine pH 7.0 (4.5-7.5) 12/21/18 09:57 Ur Specific [place] 1.016 (1.000-1.030) 12/21/18 09:57 Urine Protein Negative (Negative) 12/21/18 09:57 Urine Glucose (UA) Negative (Negative) 12/21/18 09:57 Urine Ketones Negative (Negative) 12/21/18 09:57 Urine Blood Trace (Negative) H 12/21/18 09:57 Urine Nitrite Negative (Negative) 12/21/18 09:57 Urine Bilirubin Negative (Negative) 12/21/18 09:57 Urine Urobilinogen Negative (Negative) 12/21/18 09:57 Ur Leukocyte Esterase Negative (Negative) 12/21/18 09:57 Urine WBC (Auto) 0 /hpf (0-5) 12/21/18 09:57 Urine RBC (Auto) 5-10 /hpf (0-4) H 12/21/18 09:57 U Hyaline Cast (Auto) 0 /lpf (0-5) 12/21/18 09:57 U Epithel Cells (Auto) 0-5 /lpf (0-5) 12/21/18 09:57 Urine Bacteria (Auto) Negative (Negative) 12/21/18 09:57 Blood Type A Positive 12/21/18 09:57 Antibody Screen NEGATIVE 12/21/18 09:57 Total Time Total Time Spent Total Time Spent (In Minutes): 20 Total Time Includes: Examination of the Patient, Discharge Planning and Medication Reconciliation Discharge Plan Discharge Items Patient Disposition: Home - Self-Care Reason For Visit: LEFT KNEE OSTEOARTHRITIS Discharge Diagnosis: left total knee replacement Condition: Good Discharge Goals: Decrease discomfort, Improve function and Increase independence Activity: Per 'Additional Instructions' section Lifting: Wait until after follow-up appointment Driving/Machine Use Comment: no driving until cleared by your surgeon Weightbearing: Left weightbearing Weightbearing Comment: WBAT with walker Non-emergency contact: Primary Care Provider and Surgeon Call non-emergency contact if: you have any medication questions, your temperature is above 101, your wound has increased redness, your wound has increased drainage and your wound pain has increased Follow-up/Referrals: Gibran Mancuso III, CRNP [Primary Care Provider] - Diet: Regular Addtl Provider Instructions: ACTIVITY RECOMMENDATIONS: SELF CARE INSTRUCTIONS AFTER TOTAL KNEE REPLACEMENT A. You may need to continue a physical therapy program after discharge from the hospital. There are several options available to you. Your doctor will assist you in selecting the best one for you. 1. An out-patient facility 2 to 3 times a week for therapy or home therapy. 2. Continue working on all exercises taught to you in the hospital. Your goals should be to increase bending of your knee to 90 degrees and beyond and to fully straighten your knee. B. You may progress at your own pace from walking with a walker or crutches to a cane; then to no assistive devices. C. Make walking a part of your daily routine. Be up as much as comfortable with rest periods throughout the day. Rest with leg elevation is very important. Use the ice wrap frequently for the first 3-4 weeks. D. There are no restrictions on activities. You may ride in a car, shop, participate in escapement matcher and all social activities. E. Wear the long elastic stockings (AMY hose) 20 hours a day for 2 weeks after surgery. They can be removed several times a day for laundering and for a bath. F. You may shower, no tub baths until cleared by your doctor. SPECIAL CARE INSTRUCTIONS: VERY IMPORTANT TO READ AND REVIEW A. There are a few signs you need to watch for after you are home. Call [facility] if you notice any of the followin. Increased severe knee pain. Some pain is expected especially when you exercise. 2. Increased swelling in your leg or knee; pain or swelling of the calf muscle in either lower leg. 3. Any fluid drainage from the incision. 4. Shortness of breath or chest pain. B. Please call [facility] at if you have any concerns or questions about your operation or recovery. The doctor or his nurse will return your call promptly. C. You must take antibiotics before dental work, bladder, bowel or other surgery. Your doctor will provide you with a permanent care to carry describing this precaution. IMPORTANT: * REMEMBER TO TAKE ASPIRIN, 81 MG, TWICE DAILY FOR 4 WEEKS UNLESS OTHERWISE DIRECTED. THIS IS YOUR BLOOD THINNER. * HIGH RISK PATIENTS MAY BE PRESCRIBED A STRONGER BLOOD THINNER. THIS WILL BE PROVIDED AT DISCHARGE. * CALL IF INCREASED PAIN, REDNESS, DRAINAGE OR FEVER GREATER THAT 101. * WEAR AMY HOSE 20 HOURS PER DAY FOR 2 WEEKS. * ROBYN Dressing- This is a large suction dressing covering your incision. This will help pull any excess drainage from the wound and allow your incision to heal properly. You may shower with this if you can keep the unit outside of the shower. If any bleeding or leakage is noted please call your doctor's office. This will remain on your incision for 7 days and then should be removed. This can be done yourself or by the home nursing staff if applicable. The entire unit is disposable once removed. Once removed, keep incision clean and dry. If redness or drainage is noted, please call your surgeon. once removed, follow these instructions: DERMABOND Prineo- This is a mesh tape dressing that is covered with glue. It should remain in place until the incision is properly healed, usually 10-14 days. This dressing is designed to naturally slough off. You may trim the exce ss mesh tape as it peels off. Incision may be briefly wet in a shower. Dry immediately by blotting with a clean, dry towel. Do not bath or swim until instructed by your doctor. Do not scratch, rub, or pick at the dressing. Do not apply any topical ointments or lotions until dressing is completely removed and/or instructed by your doctor. There may be a small piece of suture material at one end of your incision. Do not pull or trim this. If it is bothersome or catching on clothing, you may cover it with a band-aid. IF INCISION IS LEAKING THROUGH DRESSING, CALL THE OFFICE . FOLLOW UP VISIT: If appointment is not already scheduled: Please call [facility] to make a follow-up appointment for 2 weeks after your surgery at . Prescriptions: New acetaminophen [Pain Reliever] 500 mg Tablet 1,000 mg PO Q8 14 Days Qty: 84 RF: 0 oxycodone 5 mg Tablet 5 - 10 mg PO .q6-8 hours PRN (Reason: pain) Qty: 30 RF: 0 Xarelto 10 mg Tablet 10 mg PO DAILY 26 Days Qty: 26 RF: 0 docusate sodium 100 mg Capsule 100 mg PO BID 10 Days Qty: 20 RF: 0 cefadroxil 500 mg capsule 500 mg PO BID 10 Days Qty: 20 RF: 0 Continued atorvastatin 10 mg Tablet 10 mg PO HS RF: 0 baclofen 10 mg Tablet 10 mg PO TID PRN (Reason: Muscle Spasm) RF: 0 esomeprazole magnesium [Nexium] 40 mg Capsule,Delayed Release(Dr/Ec) 40 mg PO HS RF: 0 gabapentin 300 mg Capsule 300 mg PO HS RF: 0 folic acid 1 mg Tablet 1 mg PO QAM RF: 0 finasteride 5 mg Tablet 5 mg PO QAM RF: 0 duloxetine 60 mg Capsule,Delayed Release(Dr/Ec) 60 mg PO HS RF: 0 Cholestyramine Light 4 gram Powder 4 g PO BID RF: 0 Stand-Alone Forms: [facility] Discharge Orders: Discharge Order (Routine); Ordered 12/29/18 Ordered By: Fritz Parker Admission Data Admit Date/Time: 12/27/18 09:08 Attending Provider: Brad Oseguera Admit Provider: Brad Oseguera Primary Care Provider: Gibran Mancuso III Service: Surgical Services Other Pending Studies at Discharge: No
[2018-12-29] MEDS: FINASTERIDE 5 MG TAB PO SCH (08:22)
[2018-12-29] MEDS: DOCUSATE SODIUM 100 MG CAP PO SCH (08:22)
[2018-12-29] MEDS: MULTIVITAMIN TAB PO SCH (08:22)
[2018-12-29] MEDS: FOLIC ACID 1 MG TAB PO SCH (08:22)
[2018-12-29] MEDS: RIVAROXABAN 10 MG TABLET PO SCH (08:23)
[2018-12-29] MEDS: OXYCODONE HCL IR 5 MG TAB (IMMEDIATE RELEASE) PO PRN (08:26)
== END 2018-12-29 10:44 | disposition home or self-care (01) | DRG 470 ==
LOC: ASU 04:50 → 3E 09:08

== ENCOUNTER 2019-05-05 08:07 | Inpatient (IN) ==
--- NOTE | 2019-04-04 12:03 | PAT Medication Instructions ---
Medication Instructions Date of Service April 04, 2019 Home Medications folic acid 6 mg PO QAM acetaminophen Pain Reliever 1,000 mg PO HS diphenhydramine-acetaminophen Acetaminophen PM 2 tab PO HS tamsulosin 0.4 mg capsule 0.4 mg PO QAM diclofenac 1 % topical gel 1 % TOPICAL BID baclofen 10 mg tablet 10 mg PO TID PRN cholestyramine-aspartame 4 gram oral powder 4 g PO BID diclofenac sodium 75 mg tablet,delayed release 75 mg PO BID duloxetine 60 mg capsule,delayed release 60 mg PO HS esomeprazole magnesium 40 mg capsule,delayed release 40 mg PO HS finasteride 5 mg tablet 5 mg PO QAM gabapentin 300 mg capsule 300 mg PO BID prednisolone acetate 1 % eye drops,suspension 1 % OP BID lovastatin 40 mg PO HS trazodone 50 - 100 mg PO HS ASK your surgeon for instructions diclofenac sodium 75 mg tablet,delayed release 75 mg PO BID STOP taking 24 hours before surgery diclofenac 1 % topical gel 1 % TOPICAL BID cholestyramine-aspartame 4 gram oral powder 4 g PO BID DO NOT take the morning of surgery folic acid 6 mg PO QAM baclofen 10 mg tablet 10 mg PO TID PRN Take morning of surgery With a small sip of water, OTHERWISE NOTHING TO EAT OR DRINK AFTER MIDNIGHT: tamsulosin 0.4 mg capsule 0.4 mg PO QAM baclofen 10 mg tablet 10 mg PO TID PRN (if needed) finasteride 5 mg tablet 5 mg PO QAM gabapentin 300 mg capsule 300 mg PO BID prednisolone acetate 1 % eye drops,suspension 1 % OP BID Take evening before surgery acetaminophen Pain Reliever 1,000 mg PO HS diphenhydramine-acetaminophen Acetaminophen PM 2 tab PO HS baclofen 10 mg tablet 10 mg PO TID PRN (if needed) duloxetine 60 mg capsule,delayed release 60 mg PO HS esomeprazole magnesium 40 mg capsule,delayed release 40 mg PO HS gabapentin 300 mg capsule 300 mg PO BID prednisolone acetate 1 % eye drops,suspension 1 % OP BID lovastatin 40 mg PO HS trazodone 50 - 100 mg PO HS Other Notes If you have any questions please call us at [phone] or [phone] or [phone] or [phone]
--- NOTE | 2019-04-05 10:48 | Anesthesiology Consultation ---
Date of Service April 05, 2019 Assessment & Plan (1) Encounter for pre-operative examination: PCP: 04/06/19 addendum: "Acceptable cardiopulmonary risk for the planned procedure and may proceed as scheduled." Chart Review Chart Review: Acceptable Risk for Surgery and Patient seen in Pre Admission Testing Teaching & Discussion Pre-Anesthesia Teaching/Discussion Notes: Instructed NPO after midnight before surgery,except medications with 15 cc of water. Medication instructions provided according to the PAT guidelines. History Surgery Operation Date: 05/05/19 09:50 Proposed Procedures p Right Total Hip Arthroplasty - Heriberto Mojica DO Height/Weight Height: 5 ft 10 in Weight: 95 kg Allergies Allergy/AdvReac Type Severity Reaction Status Date / Time codeine Allergy Mild ITCHING Verified 04/04/19 14:53 Medications Home Medications Medication Instructions Recorded Confirmed Last Taken folic acid 6 mg PO QAM 12/19/18 04/04/19 02/19/19 acetaminophen [Pain Reliever] 1,000 mg PO HS 12/30/18 04/04/19 02/19/19 tamsulosin 0.4 mg capsule 0.4 mg PO QAM #30 cap 02/07/19 04/04/19 02/19/19 diclofenac 1 % topical gel 1 % TOPICAL BID #3 gm 03/10/19 04/04/19 Unknown baclofen 10 mg tablet 10 mg PO TID PRN 03/17/19 04/04/19 Unknown cholestyramine-aspartame 4 gram 4 g PO BID 03/17/19 04/04/19 Unknown oral powder diclofenac sodium 75 mg 75 mg PO BID #60 tab 03/17/19 04/04/19 Unknown tablet,delayed release duloxetine 60 mg capsule,delayed 60 mg PO HS 03/17/19 04/04/19 Unknown release esomeprazole magnesium 40 mg 40 mg PO HS 03/17/19 04/04/19 Unknown capsule,delayed release finasteride 5 mg tablet 5 mg PO QAM 03/17/19 04/04/19 Unknown gabapentin 300 mg capsule 300 mg PO BID 03/17/19 04/04/19 Unknown prednisolone acetate 1 % eye 1 % OP BID #10 ml 03/17/19 04/04/19 Unknown drops,suspension lovastatin 40 mg PO HS 03/30/19 04/04/19 Unknown trazodone 50 - 100 mg PO HS 03/30/19 04/04/19 Unknown Past Medical History Medical History Venous insufficiency (chronic) (peripheral) Hypercholesterolemia Hydronephrosis Fibromyalgia Depression Constipation BPH (benign prostatic hyperplasia) Degenerative disc disease cervical GERD (gastroesophageal reflux disease) controlled 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) s/p long car ride Hyperlipidemia Osteoarthritis Exercise / Class Metabolic Activity II 4-5 Yardwork/Stairs/Walk up hill (uses cane prn (notes hip pain but denies chest pain/dyspnea)) Past Family History Family History Unknown Diabetes High cholesterol Grandmother (Maternal) Family history of diabetes mellitus Grandmother (Paternal) Family history of diabetes mellitus Father Heart disease Myocardial infarction Cardiac disorder Past Surgical History Surgical History History of arthroscopy of left shoulder May 2018 History of cataract extraction with lens replacement BILATERAL History of colonoscopy X MULTIPLE History of repair of rotator cuff BILATERAL History of total knee replacement right/left; left TKA: 12/27/18: SAB x 1 at L3-L4 + PNB at [facility] History of vitrectomy Left eye vitrectomy: 02/20/19: MAC sedation at [facility] [place] Past Anesthesia History No Hx of Anesthesia Complications and No Family Hx of Anesthesia Complications History of PONV No Hx of PONV and No Hx of Motion Sickness Social History Smoking Status: Former smoker tobacco type: cigarettes Do You Dip or Chew Tobacco: No (QUIT 30 YEARS AGO) Smoking End Date: QUIT 30 YEARS AGO; HX 1 PPD Hx Alcohol Use: Yes Alcohol type: wine alcohol intake frequency: holidays/special occasions only Hx Substance Use: No substance use type: does not use Review of Systems Reflux controlled. Patient denies chest pain, shortness of breath, dyspnea on exertion, cough, wheezing, palpitations. Physical Exam Vital Signs VITALS BP 102/65 P 71 TEMP 97.9 SP02 96%RA RESP 16 PHYSICAL Full neck and c-spine range of motion. Full TMJ range of motion. TMD 3 finger breaths Mallampati Score 1 Dentition: upper/lower partials Lungs: clear throughout to auscultation Cardiac: regular rate and rhythm, no murmurs noted Spine: normal Carotid arteries: negative bruit Extremities: no edema Testing Laboratory Results PT 10.1 Seconds (9.0-12.0) 04/05/19 11:17 INR 1.0 (0.9-1.1) 04/05/19 11:17 APTT 25.1 Seconds (21.0-31.0) 04/05/19 11:17 Urine Color Yellow 04/05/19 11:17 Urine Appearance Clear (Clear) 04/05/19 11:17 Urine pH 5.5 (4.5-7.5) 04/05/19 11:17 Ur Specific [place] 1.020 (1.000-1.030) 04/05/19 11:17 Urine Protein Negative (Negative) 04/05/19 11:17 Urine Glucose (UA) Negative (Negative) 04/05/19 11:17 Urine Ketones Negative (Negative) 04/05/19 11:17 Urine Nitrite Negative (Negative) 04/05/19 11:17 Ur Leukocyte Esterase Negative (Negative) 04/05/19 11:17 Blood Type A Positive 04/05/19 11:17 Antibody Screen NEGATIVE 04/05/19 11:17 04/05/19 11:17 Urine Culture - Preliminary Urine,Clean Catch No growth - Less than 1,000 colonies/mL, Final report to follow. 03/21/19 WBC 4.4 H/H 13.8/43.4 PLATELETS 198 SODIUM 143 POTASSIUM 4.4 CHLORIDE 108 CO2 31 BUN 13 CREATININE 0.76 GLUCOSE 94 Electrocardiogram Date: 05/27/18 SR at 65bpm. "Normal ECG" Chest X-Ray Date: 12/30/18 Negative chest.
[2019-04-05 12:21] LABS: Partial Thromboplastin Ratio 0.9; Partial Thromboplastin Time 25.1 Seconds (21.0-31.0); Prothrombin Time 10.1 Seconds (9.0-12.0)
[2019-04-05 12:26] LABS: Appearance Urine Clear (Clear); Bilirubin Urine Negative (Negative); Blood Urine Negative (Negative); Color Urine Yellow; Glucose Urine UA Negative (Negative); Ketones Urine Negative (Negative); Leukocyte Esterase Urine Negative (Negative); Nitrite Urine Negative (Negative); Protein Urine Negative (Negative); Urobilinogen Urine Negative (Negative); pH Urine 5.5 (4.5-7.5)
--- NOTE | 2019-05-04 16:58 | History & Physical Report ---
Date of Service May 04, 2019 Assessment & Plan (1) Osteoarthritis of right hip: Schedule a right WILNER for 05.05.19. All potential risks, benefits, complications, alternatives, and rehab have been discussed with the patient and he wishes to proceed. Plan for Lovenox vs. Xarelto post op for DVT prophylaxis because of previous hx of DVT. History of Present Illness Chief Complaint: Right hip pain Primary Care Provider: Gibran Mancuso, III, MERCHANDISING COORDINATOR This is a patient with chronic right hip pain secondary to right hip DJD. He was treated conservatively, however, he has failed all conservative management. He is now being set up for a right WILNER. Allergies Allergy/AdvReac Type Severity Reaction Status Date / Time codeine Allergy Mild ITCHING Verified 04/04/19 14:53 Home Medications Home Medications Medication Instructions Recorded Confirmed Type folic acid 6 mg PO QAM 12/19/18 04/04/19 History acetaminophen [Pain Reliever] 1,000 mg PO HS 12/30/18 04/04/19 History tamsulosin 0.4 mg capsule 0.4 mg PO QAM #30 cap 02/07/19 04/04/19 History diclofenac 1 % topical gel 1 % TOPICAL BID #3 gm 03/10/19 04/04/19 History baclofen 10 mg tablet 10 mg PO TID PRN 03/17/19 04/04/19 History cholestyramine-aspartame 4 gram 4 g PO BID 03/17/19 04/04/19 History oral powder diclofenac sodium 75 mg 75 mg PO BID #60 tab 03/17/19 04/04/19 History tablet,delayed release duloxetine 60 mg capsule,delayed 60 mg PO HS 03/17/19 04/04/19 History release esomeprazole magnesium 40 mg 40 mg PO HS 03/17/19 04/04/19 History capsule,delayed release finasteride 5 mg tablet 5 mg PO QAM 03/17/19 04/04/19 History gabapentin 300 mg capsule 300 mg PO BID 03/17/19 04/04/19 History prednisolone acetate 1 % eye 1 % OP BID #10 ml 03/17/19 04/04/19 History drops,suspension lovastatin 40 mg PO HS 03/30/19 04/04/19 History trazodone 50 mg tablet 50 mg PO HS #30 tab 04/13/19 Rx Past Med/Surg History Medical History Venous insufficiency (chronic) (peripheral) Hypercholesterolemia Hydronephrosis Fibromyalgia Depression Constipation BPH (benign prostatic hyperplasia) Degenerative disc disease cervical GERD (gastroesophageal reflux disease) controlled 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) s/p long car ride Hyperlipidemia Osteoarthritis Surgical History History of arthroscopy of left shoulder May 2018 History of cataract extraction with lens replacement BILATERAL History of colonoscopy X MULTIPLE History of repair of rotator cuff BILATERAL History of total knee replacement right/left; left TKA: 12/27/18: SAB x 1 at L3-L4 + PNB at [facility] History of vitrectomy Left eye vitrectomy: 02/20/19[place] [facility] [place] Family History Unknown Diabetes High cholesterol Grandmother (Maternal) Family history of diabetes mellitus Grandmother (Paternal) Family history of diabetes mellitus Father Heart disease Myocardial infarction Cardiac disorder Social History Preferred Language: [place] Communication Ability: Effective Best Second Jobs Required: No Beliefs That Will Affect Care: None marital status: Current Living Situation: Spouse Other Information That Helps Us Care for You: No Feels Safe at Home: Yes Safety Concerns: Feels Safe At This Time Smoking Status: Former smoker Tobacco Type: cigarettes ; Do You Dip or Chew Tobacco: No (QUIT 30 YEARS AGO) ; Smoking End Date: QUIT 30 YEARS AGO; HX 1 PPD ; Second Hand Exposure: No ; Hx Alcohol Use: Yes Alcohol type: wine Hx Substance Use: No Physical Exam Constitutional: well developed and well nourished; no acute distress ENMT: external ear and nose normal, oropharynx normal Neck: trachea midline, no thyromegaly Respiratory: normal respiratory effort, lungs clear to auscultation Cardiovascular: Rate/Rhythm: regular rate and regular rhythm Gastrointestinal (Abdomen): normal bowel sounds, soft, nontender, no hepatosplenomegaly Musculoskeletal: Gait: + antalgic gait (right) Hip: + limited ROM of hip (right internal/external rotation), + hip ROM with crepitation (right), + joint line tenderness (right groin) and + KODAK test positive (right); no deformity, no skin erythema and no ecchymosis Skin: no rashes, warm and dry Neurologic: normal touch/pain/proprioception Psychiatric: A+Ox3, euthymic affect Lymphatic: no cervical or axillary lymphadenopathy
[~2019-05-05 08:07] MED LIST changes: +ACETAMINOPHEN 500 MG TAB PO SCH; -ATOR10TA82 PO; -BACL10TA PO; +BUPIVACAINE 0.5 % 5 MG/1 ML PF 10ML VIAL ONE; +CEFAZOLIN 2000MG 2,000 MG/15 ML SYR IV SCH; -CHOL4POW3 PO; -CYM/30 PO; +CeleBREX 200 MG CAP PO SCH; -DIPH-437 PO; +FAMOTIDINE 20 MG TAB PO SCH; -FINA5TAB PO; -FOLI1TAB8 PO; +GABAPENTIN 300 MG CAP PO SCH; +LR 500ML BOLUS, THEN 15ML/HR IV SCH; +METOCLOPRAMIDE HCL 10 MG TABLET PO SCH; -NXM/40 PO; +ROPIVACAINE 0.5% HCL/PF 150 MG, BUPIVACAINE 0.5% MPF 30 ML, EPINEPHrine 30MG/30ML (OR U... INSTIL SCH; -VLT/75 PO; +dexAMETHasone 4 MG TAB PO SCH
[2019-05-05] MEDS ORDERED: ATROPINE SULFATE 0.1 MG/ML 10ML SYR IV PRN (09:22)
[2019-05-05] MEDS ORDERED: ePHEDrine sulfate 50 MG/ML AMP IV PRN (09:22)
[2019-05-05] MEDS ORDERED: HYDROmorphone INJ 2 MG/ML SYR/VIAL IV PRN (09:22)
[2019-05-05] MEDS ORDERED: LIDOCAINE HCL 2% 2 ML VIAL/AMP(20MG/ML) INFIL ONE (09:39)
[2019-05-05] MEDS ORDERED: fentaNYL citrate 100 MCG/2 ML VIAL ONE (09:39)
[2019-05-05] MEDS ORDERED: PROPOFOL IV EMULSION 10 MG/ML 20 ML VIAL IV ONE ×2 (09:39→13:20)
[2019-05-05] MEDS ORDERED: MIDAZOLAM HCL 1 MG/ML 2ML VIAL ONE ×2 (09:39→10:38)
[2019-05-05] MEDS ORDERED: SODIUM CHLORIDE 0.9% INJ 10 ML VIAL ONE ×2 (09:45→12:30)
[2019-05-05] MEDS ORDERED: KETAMINE HCL INJ 50 MG/ML 10 ML VIAL ONE (09:46)
--- NOTE | 2019-05-05 10:25 | History & Physical Bridge Note ---
Date of Service May 05, 2019 History & Physical Bridge Note I have examined the patient, reviewed the History & Physical and in the interval since the performance of the History & Physical I have noted the following changes of clinical significance: no changes noted
[2019-05-05] MEDS ORDERED: BACITRACIN INJ 50,000 UNIT VIAL ONE (10:38)
[2019-05-05] MEDS ORDERED: ORTHO JOINT ANESTHETIC ONE (10:38)
[2019-05-05] MEDS ORDERED: ONDANSETRON INJ 2 MG/ML 2 ML VIAL IV PRN (11:22)
[2019-05-05] MEDS ORDERED: HYDROmorphone INJ 0.5 MG/0.5 ML SYR IV PRN (11:22)
[2019-05-05] MEDS ORDERED: METOCLOPRAMIDE HCL INJ 5 MG/ML 2 ML VIAL IV PRN (11:22)
[2019-05-05] MEDS ORDERED: BISACODYL 10 MG SUPP PR PRN (11:22)
[2019-05-05] MEDS ORDERED: ALUMINUM/MAGNESIUM SUSP 30 ML UDC PO PRN (11:22)
[2019-05-05] MEDS ORDERED: NALOXONE HCL 0.4 MG/1 ML VIAL/CARP IV PRN (11:22)
[2019-05-05] MEDS ORDERED: OXYCODONE HCL IR 5 MG TAB (IMMEDIATE RELEASE) PO PRN (11:22)
[2019-05-05] MEDS ORDERED: MAGNESIUM HYDROXIDE SUSP 30 ML UDC PO PRN (11:22)
[2019-05-05] MEDS ORDERED: ePHEDrine sulfate 50 MG/ML AMP ONE ×2 (11:23→12:22)
[2019-05-05] MEDS ORDERED: PHENYLEPHRINE HCL 10 MG/ML VIAL ONE (11:46)
[2019-05-05] MEDS ORDERED: VASOPRESSIN 20 UNIT/ML VIAL ONE (12:30)
[2019-05-05] MEDS ORDERED: CEFAZOLIN 250 MG/ML 1 GM VIAL ONE (13:00)
--- NOTE | 2019-05-05 14:24 | Post Operative Brief Note ---
Immediate Post Op Note v1 Date of Surgery May 05, 2019 Pre & Post Diagnosis Operation Date: 05/05/19 10:00 Pre-Op Diagnosis: Right Hip degenerative joint disease, right hip osteoarthritis, right hip pain Post-Op Diagnosis: Right Hip degenerative joint disease, right hip osteoarthritis, right hip pain Procedure Operation Date: 05/05/19 10:00 Actual Procedures p Right Total Hip Arthroplasty-Uncemented(Right) - Heriberto Mojica DO Surgeon Heriberto Mojica DO Pipe Blanks Cut Off Saw Operator Rocco Townsend PA-C Estimated Blood Loss 200 Findings Consistent with Post-Op Diagnosis Specimens Bone and tissue right hip Drains Hemovac Drain (10 fr dual trocar) Anesthesia Type Spinal MAC Complications none Disposition Accompanied Patient To Recovery: No Disposition: Recovery Room
--- NOTE | 2019-05-05 14:45 | XRay Report ---
SINGLE VIEW PELVIS; SINGLE VIEW RIGHT HIP CLINICAL HISTORY: Postoperative examination. FINDINGS: An AP portable view of the hips and pelvis with a crosstable lateral portable view of the r ight hip are obtained. A bipolar right hip arthroplasty is in near-anatomic alignment. At least 2 cor tical lag screws transfix the acetabular cup. No acute fracture is identified. There are expected pos toperative changes overlying the right hip including subcutaneous gas, a surgical drain, and soft tis blair swelling. Surgical clips are noted along the spermatic cord bilaterally. There is atherosclerotic calcification of the femoral arteries. IMPRESSION: Expected postoperative findings status post right hip arthroplasty. No acute fracture is seen. Electronically signed by: Hollis Cardenas M.D. 05/05/2019 2:43 PM
[2019-05-05] MEDS ORDERED: BACLOFEN 10 MG TAB PO PRN (15:57)
--- NOTE | 2019-05-05 16:36 | Anesthesiology Progress Note ---
Date of Service May 05, 2019 Anesthesia Post Procedure Vital Signs Vital Signs: Temp Pulse Pulse Pulse Resp BP BP 05/05/19 16:10 89 16 99/61 L 05/05/19 15:40 36.4 C L 80 16 109/68 05/05/19 15:20 103/64 05/05/19 15:16 82 12 05/05/19 15:15 37.0 C 82 14 110/58 L 05/05/19 15:11 87 12 05/05/19 15:10 83 16 106/64 05/05/19 15:06 84 14 05/05/19 15:05 83 14 100/60 05/05/19 15:01 83 15 90/62 L 05/05/19 15:00 87 16 05/05/19 14:56 82 14 05/05/19 14:55 36.9 C 82 15 107/61 05/05/19 14:53 83 14 109/64 05/05/19 14:51 81 12 05/05/19 14:50 84 14 87/65 L 05/05/19 14:46 82 18 05/05/19 14:45 83 17 97/62 L 05/05/19 14:41 84 20 05/05/19 14:40 81 80 12 104/63 104/63 05/05/19 14:36 80 13 05/05/19 14:35 82 16 101/67 05/05/19 14:31 88 13 05/05/19 14:30 36.7 C 90 16 102/71 102/71 05/05/19 08:54 36.8 C 69 20 98/66 L Pulse Ox 05/05/19 16:10 100 05/05/19 15:40 100 05/05/19 15:20 05/05/19 15:16 98 05/05/19 15:15 98 05/05/19 15:11 96 05/05/19 15:10 98 05/05/19 15:06 98 05/05/19 15:05 98 05/05/19 15:01 99 05/05/19 15:00 97 05/05/19 14:56 99 05/05/19 14:55 99 05/05/19 14:53 97 05/05/19 14:51 98 05/05/19 14:50 98 05/05/19 14:46 97 05/05/19 14:45 100 05/05/19 14:41 99 05/05/19 14:40 97 05/05/19 14:36 98 05/05/19 14:35 98 05/05/19 14:31 94 05/05/19 14:30 96 05/05/19 08:54 97 Pain Intensity Right Hip: Pain Intensity: 3 Transfer of Care Handoff Completed per policy Notes Mental Status: alert / awake / arousable Patient Amnestic to Procedure: Yes Nausea / Vomiting: adequately controlled Pain: adequately controlled Airway Patency, RR, SpO2: stable & adequate BP & HR: stable & adequate Hydration State: stable & adequate Anesthetic Complications: no major complications apparent and Pt Satisfied with anesthetic care
[2019-05-05] MEDS: KETOROLAC TROMETHAMINE 15 MG/ML VIAL IV SCH ×2 (17:06→23:30)
[2019-05-05] MEDS: TRAMADOL HCL 50 MG TABLET PO PRN (19:27)
[2019-05-05] MEDS ORDERED: HYDROmorphone INJ 1 MG/ML SYRINGE IV PRN (19:29)
[2019-05-05] MEDS: CEFAZOLIN 2000MG 2,000 MG/15 ML SYR IV SCH (19:31)
[2019-05-05] MEDS: ACETAMINOPHEN 500 MG TAB PO SCH (21:36)
[2019-05-05] MEDS: DOCUSATE SODIUM 100 MG CAP PO SCH (21:37)
[2019-05-05] MEDS: SENNA 8.6 MG TAB PO SCH (21:37)
[2019-05-05] MEDS: DICLOFENAC SOD 1% GEL 100 GM TUBE EXT SCH (21:38)
[2019-05-05] MEDS: DULOXETINE HCL 60 MG CAP PO SCH (21:38)
[2019-05-05] MEDS: PANTOprazole 40 MG TAB PO SCH (21:39)
[2019-05-05] MEDS: TRAZODONE HCL 50 MG TAB PO SCH (21:43)
[2019-05-05] MEDS: LOVASTATIN 20 MG TAB PO SCH (21:43)
[2019-05-05] MEDS: GABAPENTIN 300 MG CAP PO SCH (21:44)
[2019-05-05] MEDS: SODIUM CHLORIDE 0.9% 1000ML 1,000 ML IV SCH ×2 (21:45→21:49)
[2019-05-05] MEDS: prednisoLONE acetate 1% OP SUSP 5 ML BTL OP SCH (21:45)
[2019-05-05] MEDS: CHOLESTYRAMINE LIGHT 4 GM PKT PO SCH (22:33)
--- NOTE | 2019-05-05 23:07 | Operative Report ---
DATE OF OPERATION: 05/05/2019 PREOPERATIVE DIAGNOSES: 1. Right hip degenerative joint disease. 2. Right hip osteoarthritis. 3. Right hip pain. POSTOPERATIVE DIAGNOSES: 1. Right hip degenerative joint disease. 2. Right hip osteoarthritis. 3. Right hip pain. PROCEDURE: Right total hip arthroplasty using a [place] uncemented size 9 Accolade II proximal femoral component with a Biolox delta femoral head 36 mm x +0 mm neck length, a Trident X3 10 degree polyethylene 36 mm, Trident PSL GONZÁLES cluster acetabular shell 60 mm, torque 6.5 mm cancellous bone screws x2. SURGEON: Heriberto Mojica DO. OPERATIONS INTELLIGENCE: HOLLIE Mejia who was present for patient positioning, sterile prep and drape, management of retractors and instruments. He was present through the critical portions of the case including wound closure, application of sterile dressing and transport of the patient to recovery. ANESTHESIA: Spinal, monitored anesthesia care with intraarticular local. SPECIMENS: Bone and tissue of the right hip. DRAINS: Hemovac x2. COMPLICATIONS: None. BLOOD LOSS: 200 mL. PERTINENT HISTORY: This is a 78-year-old gentleman who has had chronic progressive and worsening right hip pain for the last 2-3 years. He attempted and failed conservative management including oral anti-inflammatories, physician-directed home exercises, modification of activities, use of an assistive device, observation and rest. He had formal physical therapy, also failed. The patient had radiographs demonstrated severe degenerative changes of the right hip with loss of joint space, marginal osteophytes, subchondral sclerosis and subchondral cysts. The patient is scheduled for surgery as indicated. PROCEDURE DESCRIPTION: The patient was taken to the Operating Suite and placed supine on the Operating Room table after identification of the consent and identification of the proper operative site the patient was sedated. The patient had previously received a spinal epidural anesthetic. The patient was then placed in the left lateral decubitus position with the affected side up and Stulberg positioning device then used to maintain lateral position of the patient. All bony prominences were properly padded and protected. Axillary roll was placed as standard and the leg lengths were determined to be essentially equal and then the right hip was then sterilely prepped and draped in the usual fashion. 10-blade scalpel incision was made laterally over the greater trochanter. The incision was deepened through the subcutaneous tissue and meticulous hemostasis with electrocautery. Further deepening of the wound through the layer of the fascia was performed with electrocautery and iliotibial band was then incised with electrocautery. Next, Charnley retractor was placed bother anteriorly and posteriorly at the level of the gluteus tendon. Next, electrocautery was used to make an incision in the vastus lateralis and then sweep was made toward the anterior aspect of the patient along the course of the femoral neck and head. Abductor split was then completed. The gluteus minimus and capsule were then incised and then soft tissue was dissected anteriorly. Next as the soft tissue was dissected anteriorly the lesser trochanter was clearly identified and hip was dislocated with relative ease. Hypertrophic osteophytes were noted circumferentially. The hip joint was noted to be noticeably tight. Next the sagittal saw was used to resect the proximal portion of the femoral neck and head approximately one fingerbreadth proximal to the lesser trochanter. Head was then removed and next the labrum was excised from the acetabulum with a 22 blade scalpel and long forceps. Next the wound was irrigated with pulsatile lavage and the pulvinar was then excised from the acetabulum. Appropriate retractors were placed anteriorly superiorly and posteriorly. Next initial acetabular reamer was placed 44 mm medialized to the medial wall and then sequential reaming was performed to size 60 mm. Trial cage was then placed and noted to be stable with excellent fit. Next the wound was irrigated with pulsatile lavage with bacitracin additive and 56 mm Ana trident PSL cup was impacted and then two 6.5 mm screws were used to stabilize the acetabular shell. Next X3 poly 36 mm was impacted into the shell. Lap sponge was placed over to protect it. Next, attention was turned toward the proximal femur. Box osteotome was used to resect proximal portion of bone followed by first pass small reamer. Next, sequential broaching was performed up to size 9 and the 9 trial was placed followed by +0 36 mm trial head. Next, it was reduced and had excellent fit and feel with minimal shuck and excellent stability in all planes and range of motion. Leg lengths were restored and next all trial implants were removed. The wound was copiously irrigated with pulsatile lavage and size 9 Accolade TMZF x 132 degree final stem was impacted. Next, Biolox ceramic 36 mm head +0 neck was impacted. The construct was reduced. Range of motion was performed and noted to be completely stable with excellent range of motion, improved to greater degree than prior to surgery. Two 10 Divehi single Hemovac drains were placed exiting anterolaterally. Wound was irrigated with pulsatile lavage. Ortho mix Was used to perform local injection around the acetabulum and in the surrounding soft tissues. Next a #5 FiberWire suture was used to close the capsule and gluteus minimum via two small bone tunnels made with 2.4 mm drill bit in the greater trochanter. A sterile dilute Betadine soak was performed of the entire incision and components for 3 minutes and then suctioned and irrigated with pulse lavage with bacitracin. After FiberWire closure was completed and noted to be stable then 10 Divehi drains were placed followed by closure of the vastus lateralis and the gluteus medius. This was closed with #1 Vicryl sutures. Next, the iliotibial band was closed using interrupted [id number] #1 Vicryl sutures. Next, final irrigation was performed with pulsatile lavage and dermis was closed using buried interrupted 2-0 Vicryl suture. The skin was closed with skin anabela. Sterile compressive dressing was applied. The patient was then placed supine and taken to recovery in stable condition. I attest to the content of the Intraoperative Record and any orders documented therein. Any exceptions are noted below. SHERLEY
[2019-05-06] MEDS: CEFAZOLIN 2000MG 2,000 MG/15 ML SYR IV SCH (03:28)
[2019-05-06] MEDS: ACETAMINOPHEN 500 MG TAB PO SCH ×3 (05:54→21:23)
[2019-05-06] MEDS: KETOROLAC TROMETHAMINE 15 MG/ML VIAL IV SCH ×2 (05:55→13:23)
[2019-05-06 06:21] LABS: Hematocrit (blood only) 28.5 % (42-52); Hemoglobin 9.3 g/dL (14.0-18.0); Immature Granulocytes # (auto) 0.03 K/uL (0.00-0.02); Immature Granulocytes % (auto) 0.3 %; Lymphocytes # (auto) 0.96 K/uL (1.2-3.4); Lymphocytes % (auto) 10.4 %; Mean Corpuscular Hgb Conc 32.6 g/dL (32-36); Mean Corpuscular Volume 89.1 fL (80-100); Monocytes # (auto) 0.98 K/uL (0.11-0.59); Monocytes % (auto) 10.6 %; Neutrophils # (auto) 7.26 K/uL (1.4-6.5); Neutrophils % (auto) 78.7 %; Platelet Count 162 K/uL (130-400); RDW Coefficient of Variation 14.4 % (11.5-14.5); RDW Standard Deviation 47.2 fL (36.4-46.3); White Blood Count 9.23 K/uL (4.8-10.8)
[2019-05-06 06:59] LABS: BUN Creatinine Ratio 21.6 (10-20); Calcium 8.1 mg/dl (8.5-10.1); Creatinine Clr Calc Pharmacy 97.3 ml/min; Est GFR (African American) 103.8; Est GFR (Non-African American) 89.6; Potassium 4.5 mmol/L (3.5-5.1)
[2019-05-06] MEDS: TRAMADOL HCL 50 MG TABLET PO PRN ×3 (07:50→21:30)
[2019-05-06] MEDS: prednisoLONE acetate 1% OP SUSP 5 ML BTL OP SCH ×2 (07:52→21:22)
[2019-05-06] MEDS: MULTIVITAMIN TAB PO SCH (07:52)
[2019-05-06] MEDS: DOCUSATE SODIUM 100 MG CAP PO SCH ×2 (07:52→21:22)
[2019-05-06] MEDS: FINASTERIDE 5 MG TAB PO SCH (07:52)
[2019-05-06] MEDS: GABAPENTIN 300 MG CAP PO SCH ×2 (07:53→21:22)
[2019-05-06] MEDS: TAMSULOSIN HCL 0.4 MG CAP PO SCH (07:53)
[2019-05-06] MEDS: FOLIC ACID 1 MG TAB PO SCH (07:53)
[2019-05-06] MEDS: RIVAROXABAN 10 MG TABLET PO SCH (07:54)
[2019-05-06] MEDS: DICLOFENAC SOD 1% GEL 100 GM TUBE EXT SCH ×2 (07:55→21:24)
[2019-05-06] MEDS: CHOLESTYRAMINE LIGHT 4 GM PKT PO SCH ×2 (10:54→22:31)
--- NOTE | 2019-05-06 11:30 | Orthopedic Progress Note ---
Date of Service May 06, 2019 Assessment & Plan (1) Osteoarthritis of right hip: s/p right WILNER Plan for discharge tomorrow if approved with [facility] DVT prophylaxis PT/OT Subjective POD#1 right WILNER Patient doing well today. No complaints. Denies CP, SOB, dizziness. Pain improves with resting. He is concerned about going home with and would like to go to rehab. Physical Exam Physical Exam: Toes mobile, NVI. Calves soft, non tender. Dressing in place. Hemovac drain Results & Data Vital Signs (Past 12 Hours) Vital Signs Temp Pulse Resp BP Pulse Ox 05/06/19 11:13 36.5 C 16 114/57 L 99 05/06/19 07:54 36.5 C 16 99/58 L 98 05/06/19 03:15 36.5 C 83 16 99/52 L 98
[2019-05-06] MEDS: PANTOprazole 40 MG TAB PO SCH (21:22)
[2019-05-06] MEDS: SENNA 8.6 MG TAB PO SCH (21:22)
[2019-05-06] MEDS: DULOXETINE HCL 60 MG CAP PO SCH (21:23)
[2019-05-06] MEDS: TRAZODONE HCL 50 MG TAB PO SCH (21:24)
[2019-05-06] MEDS: LOVASTATIN 20 MG TAB PO SCH (21:24)
[2019-05-06] MEDS ORDERED: NURSING DECISION MEDICATION ONE (22:39)
[2019-05-06] MEDS ORDERED: SODIUM CHLORIDE 0.65% NA SOLN 45 ML (OCEAN) ONE (22:49)
[2019-05-06] MEDS ORDERED: SODIUM CHLORIDE 0.65% NA SOLN 45 ML (OCEAN) PRN (22:49)
[2019-05-07] MEDS: ACETAMINOPHEN 500 MG TAB PO SCH (05:39)
[2019-05-07 06:07] LABS: Basophils # (auto) 0.01 K/uL (0-0.2); Basophils % (auto) 0.1 %; Eosinophils # (auto) 0.02 K/uL (0-0.5); Eosinophils % (auto) 0.2 %; Hematocrit (blood only) 26.3 % (42-52); Hemoglobin 8.6 g/dL (14.0-18.0); Immature Granulocytes # (auto) 0.01 K/uL (0.00-0.02); Immature Granulocytes % (auto) 0.1 %; Lymphocytes # (auto) 1.91 K/uL (1.2-3.4); Lymphocytes % (auto) 22.8 %; Mean Corpuscular Hgb Conc 32.7 g/dL (32-36); Mean Corpuscular Volume 90.1 fL (80-100); Mean Platelet Volume 9.8 fL (7.4-10.4); Monocytes # (auto) 0.95 K/uL (0.11-0.59); Monocytes % (auto) 11.3 %; Neutrophils # (auto) 5.49 K/uL (1.4-6.5); Neutrophils % (auto) 65.5 %; Platelet Count 142 K/uL (130-400); RDW Standard Deviation 49.5 fL (36.4-46.3); Red Blood Count 2.92 M/uL (4.7-6.1); White Blood Count 8.39 K/uL (4.8-10.8)
[2019-05-07] MEDS: DOCUSATE SODIUM 100 MG CAP PO SCH (07:48)
[2019-05-07] MEDS: TAMSULOSIN HCL 0.4 MG CAP PO SCH (07:48)
[2019-05-07] MEDS: MULTIVITAMIN TAB PO SCH (07:49)
[2019-05-07] MEDS: FOLIC ACID 1 MG TAB PO SCH (07:49)
[2019-05-07] MEDS: GABAPENTIN 300 MG CAP PO SCH (07:49)
[2019-05-07] MEDS: RIVAROXABAN 10 MG TABLET PO SCH (07:50)
[2019-05-07] MEDS: FINASTERIDE 5 MG TAB PO SCH (07:50)
[2019-05-07] MEDS: DICLOFENAC SOD 1% GEL 100 GM TUBE EXT SCH (07:51)
[2019-05-07] MEDS: prednisoLONE acetate 1% OP SUSP 5 ML BTL OP SCH (07:51)
--- NOTE | 2019-05-07 08:42 | Orthopedic Progress Note ---
Date of Service May 07, 2019 Assessment & Plan (1) Osteoarthritis of right hip: s/p right WILNER Patient would like to go home if therapy goes well today. DVT prophylaxis- xarelto/teds PT/OT Subjective POD#2 right WILNER Patient doing well today. No complaints. Denies CP, SOB, dizziness. since going to therapy he would like to go home Physical Exam Physical Exam: Toes mobile, NVI. Calves soft, non tender. Dressing in place. silverlon Results & Data Vital Signs (Past 12 Hours) Vital Signs Temp Pulse Resp BP Pulse Ox 05/07/19 06:01 36.6 C 91 H 18 107/64 96 05/06/19 22:53 36.8 C 83 14 108/50 L 97
[2019-05-07] MEDS: CHOLESTYRAMINE LIGHT 4 GM PKT PO SCH (10:08)
[2019-05-07] MEDS: TRAMADOL HCL 50 MG TABLET PO PRN (12:26)
--- NOTE | 2019-05-09 15:53 | Discharge Summary ---
DISCHARGE DIAGNOSIS: Right hip degenerative joint disease. SECONDARY DIAGNOSES: Venous insufficiency, hypercholesterolemia, hydronephrosis, fibromyalgia, depression, constipation, benign prostatic hypertrophy, degenerative disk disease cervical, gastroesophageal reflux disease, history of deep venous thrombosis in adulthood right lower extremity status post long car ride, hyperlipidemia, osteoarthritis. CONSULTATIONS: None. COMPLICATIONS: None. PROCEDURES: Right total hip arthroplasty performed by Dr. Mojica on 05/05/2019. BRIEF HISTORY: As dictated in the history and physical. HOSPITAL SUMMARY: The patient was admitted on the above-noted date and had the above-noted surgery performed, which he tolerated well. On his first postoperative day, he was doing well, no complaints. Denied shortness of breath, chest pain or dizziness. Pain improves with rest. He is concerned about going home with his and would like to go to rehab. Toes were mobile. Neurovascularly intact. Calves were soft, nontender. Dressings in place. A Hemovac drain was placed and vital signs were stable. He was afebrile. He was started on PT and OT protocols and continued on DVT prophylaxis and pain management. Case management to arrange discharge needs for home health versus rehabilitation if needed. By his second postoperative day, he was doing well, had no complaints, was comfortable and since going to therapy, he would like to go home instead. Toes were mobile. Neurovascularly intact. Calves were soft, nontender. Dressings in place with the Silverlon. Vital signs were stable. He was afebrile. Hemoglobin was 8.6 and he continued to remain stable. BP was 107/64 last taken, pulse 75, respirations 18, afebrile. He was otherwise remaining stable and progressing with his physical therapy and it was felt he could be discharged to home on 05/07/2019. For further review, please see chart. LABORATORY AND X-RAY DATA: As per chart. DISCHARGE INSTRUCTIONS: The patient was discharged to home in satisfactory condition with home health services on 05/07/2019. Diet: Regular. Activity: Follow WILNER instruction sheets and special care instructions as noted. Follow up with Dr. Mojica in 2 weeks. The patient is to call for appointment if one has not been made for you. DISCHARGE MEDICATIONS: Acetaminophen 1000 mg p.o. q. 8 hours, multivitamin 1 tab p.o. q.a.m., oxycodone 5-10 mg p.o. q. 4 hours p.r.n., tramadol 50-100 mg p.o. q. 6 hours p.r.n., Xarelto 10 mg p.o. daily. Resume home meds as listed. Stop taking previous acetaminophen dosage and stop taking diclofenac sodium.
== END 2019-05-07 13:12 | disposition home health service (06) | DRG 470 ==
LOC: ASU 08:07 → 3E 11:22

== ENCOUNTER 2021-01-20 06:13 | Inpatient (IN) ==
--- NOTE | 2021-01-03 14:18 | PAT Medication Instructions ---
Medication Instructions Date of Service January 03, 2021 Home Medications Medication Instructions Recorded multivitamin [Daily-Robinson] 1 tab PO QAM #30 tab 05/07/19 nystatin-triamcinolone 100,000 1 appln TOP TID PRN #60 gm 12/11/19 unit/gram-0.1 % topical ointment lovastatin 40 mg tablet 40 mg PO DAILY #90 tab 05/08/20 gabapentin 300 mg capsule 300 mg PO BID #180 cap 05/17/20 folic acid 1 mg tablet 6 mg PO QAM #540 tab 06/17/20 finasteride 5 mg tablet 5 mg PO QAM #90 tab 06/27/20 montelukast 10 mg tablet 10 mg PO QPM #90 tab 07/04/20 trazodone 100 mg tablet 100 mg PO DAILY #90 tab 07/04/20 cholestyramine (with sugar) 4 gram 4 g PO BID #378 gm 09/24/20 oral powder esomeprazole magnesium 40 mg 40 mg PO DAILY #90 cap 09/24/20 capsule,delayed release fluticasone propionate 50 1 spray INTRANASAL DAILY #9.9 ml 11/26/20 mcg/actuation nasal spray,suspension multivitamin [Daily-Robinson] 1 tab PO QAM diphenhydramine 25 mg-acetaminophen 500 mg tablet 1 tab PO HS PRN nystatin-triamcinolone 100,000 unit/gram-0.1 % topical ointment 1 appln TOP TID PRN cholecalciferol (vitamin D3) 125 mcg (5,000 unit) capsule 125 mcg PO QAM ferrous sulfate 325 mg (65 mg iron) tablet 325 mg PO QAM lovastatin 40 mg tablet 40 mg PO DAILY gabapentin 300 mg capsule 300 mg PO BID folic acid 1 mg tablet 6 mg PO QAM finasteride 5 mg tablet 5 mg PO QAM montelukast 10 mg tablet 10 mg PO QPM trazodone 100 mg tablet 100 mg PO DAILY cholestyramine (with sugar) 4 gram oral powder 4 g PO BID esomeprazole magnesium 40 mg capsule,delayed release 40 mg PO DAILY fluticasone propionate 50 mcg/actuation nasal spray,suspension 1 spray INTRAN CARO DAILY STOP taking 48 hours before surgery cholestyramine (with sugar) 4 gram oral powder 4 g PO BID STOP taking 24 hours before surgery nystatin-triamcinolone 100,000 unit/gram-0.1 % topical ointment 1 appln TOP TID PRN DO NOT take the morning of surgery multivitamin [Daily-Robinson] 1 tab PO QAM cholecalciferol (vitamin D3) 125 mcg (5,000 unit) capsule 125 mcg PO QAM ferrous sulfate 325 mg (65 mg iron) tablet 325 mg PO QAM folic acid 1 mg tablet 6 mg PO QAM Take morning of surgery With a small sip of water, OTHERWISE NOTHING TO EAT OR DRINK AFTER MIDNIGHT: lovastatin 40 mg tablet 40 mg PO DAILY gabapentin 300 mg capsule 300 mg PO BID finasteride 5 mg tablet 5 mg PO QAM trazodone 100 mg tablet 100 mg PO DAILY esomeprazole magnesium 40 mg capsule,delayed release 40 mg PO DAILY fluticasone propionate 50 mcg/actuation nasal spray,suspension 1 spray INTRANASAL DAILY Take evening before surgery diphenhydramine 25 mg-acetaminophen 500 mg tablet 1 tab PO HS PRN (if needed) gabapentin 300 mg capsule 300 mg PO BID montelukast 10 mg tablet 10 mg PO QPM Other Notes If you have any questions please call us at [phone] or [phone] or [phone] or [phone]
--- NOTE | 2021-01-06 11:13 | Anesthesiology Consultation ---
Date of Service January 06, 2021 Assessment & Plan (1) Encounter for pre-operative examination: COVID Status: As of 01/06 assessment, patient denies travel to endemic area, known exposure/sick contacts, or symptoms of COVID19. Patient instructed that they and their household members must follow strict social distancing guidelines, wear a mask in public and avoid travel/events/gatherings for 14 days prior to surgery. Preoperative COVID19 testing to be completed prior to surgery per surgeon's arrangements (pt aware). Patient made aware to self-isolate as much as possible between COVID testing and surgery. Pt is fully vaccinated. Patient goes by "Jay." PCP clearance 01/02/21: " Surgical intervention is medically necessary. His laboratory studies do not show any significant anemia or leukocytosis. He has normal renal function and liver function. Twelve lead EKG is unchanged from previous and chest x-ray is normal. He is in acceptable medical risk for the planned procedure and is medically cleared for surgery." Chart Review Chart Review: Acceptable Risk for Surgery and Patient seen in Pre Admission Testing Teaching & Discussion Instructed NPO after midnight before surgery, except medications with 15 cc of water. Medication instructions provided according to the PAT guidelines. History Surgery Operation Date: 01/20/21 12:25 Proposed Procedures p Right Sacroiliac Joint Fusion(Right) - Bebeto Stanley DO Height/Weight Height: 5 ft 10.5 in Weight: 96.3 kg Allergies Allergy/AdvReac Type Severity Reaction Status Date / Time codeine Allergy Mild ITCHING Verified 01/02/21 17:48 misoprostol AdvReac Mild Diarrhea Verified 01/02/21 17:48 Medications Home Medications Medication Instructions Recorded Confirmed Last Taken multivitamin [Daily-Robinson] 1 tab PO QAM #30 tab 05/07/19 01/02/21 Unknown diphenhydramine 25 1 tab PO HS PRN 09/28/19 01/02/21 Unknown mg-acetaminophen 500 mg tablet nystatin-triamcinolone 100,000 1 appln TOP TID PRN #60 gm 12/11/19 01/02/21 Unknown unit/gram-0.1 % topical ointment cholecalciferol (vitamin D3) 125 125 mcg PO QAM 03/25/20 01/02/21 Unknown mcg (5,000 unit) capsule ferrous sulfate 325 mg (65 mg 325 mg PO QAM 03/25/20 01/02/21 Unknown iron) tablet lovastatin 40 mg tablet 40 mg PO DAILY #90 tab 05/08/20 01/02/21 Unknown gabapentin 300 mg capsule 300 mg PO BID #180 cap 05/17/20 01/02/21 Unknown folic acid 1 mg tablet 6 mg PO QAM #540 tab 06/17/20 01/02/21 Unknown finasteride 5 mg tablet 5 mg PO QAM #90 tab 06/27/20 01/02/21 Unknown montelukast 10 mg tablet 10 mg PO QPM #90 tab 07/04/20 01/02/21 Unknown trazodone 100 mg tablet 100 mg PO DAILY #90 tab 07/04/20 01/02/21 Unknown cholestyramine (with sugar) 4 gram 4 g PO BID #378 gm 09/24/20 01/02/21 Unknown oral powder esomeprazole magnesium 40 mg 40 mg PO DAILY #90 cap 09/24/20 01/02/21 Unknown capsule,delayed release fluticasone propionate 50 1 spray INTRANASAL DAILY #9.9 ml 11/26/20 01/02/21 Unknown mcg/actuation nasal spray,suspension Past Medical History Medical History BPH (benign prostatic hyperplasia) Degenerative disc disease 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) s/p long car ride Hyperlipidemia 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 Osteoarthritis Venous insufficiency (chronic) (peripheral) Exercise / Class Metabolic Activity II 4-5 Yardwork/Stairs/Walk up hill (Using cane for stability due to back pain, denies CP or SOB with 1 FOS, does daily) Past Family History Family History Unknown Diabetes High cholesterol Grandmother (Maternal) Diabetes Family history of diabetes mellitus Grandmother (Paternal) Diabetes Family history of diabetes mellitus Father Heart disease Cardiac disorder Myocardial infarction Mother Cancer Other No family history of adverse response to anesthesia Denies family history of Ovarian cancer Prostate cancer Breast cancer Colorectal cancer Past Surgical History Surgical History History of arthroscopy of left shoulder History of cataract extraction with lens replacement RT/LEFT History of colonoscopy History of elbow surgery RT History of esophagogastroduodenoscopy (EGD) History of hemorrhoidectomy History of repair of rotator cuff RT/LEFT History of tooth extraction History of total hip arthroplasty RT History of total knee replacement RT/LEFT History of vasectomy History of vitrectomy LEFT Past Anesthesia History No Hx of Anesthesia Complications and No Family Hx of Anesthesia Complications History of PONV No Hx of PONV and No Hx of Motion Sickness Social History Smoking Status: Former smoker tobacco type: cigarettes and smokeless tobacco Do You Dip or Chew Tobacco: No (QUIT 30 YEARS AGO) Smoking End Date: QUIT 30 YEARS AGO Hx Alcohol Use: Yes Alcohol type: wine alcohol intake frequency: holidays/special occasions only Hx Substance Use: No substance use type: does not use Review of Systems Pt denies any recent chest pain, shortness of breath, palpitations, cough, fever, URI, or uncontrolled acid reflux. Physical Exam Vital Signs BP: 103/66 P: 64bpm SPO2: 96% RA T: 98.2 F R: 12 ENMT Mouth: + dentures (partial upper and lower); no chipped teeth and no loose teeth Thyromental Distance: > or= 3.5 Finger Breadths Mallampati Class: I Neck normal visual inspection and + limited neck extension Respiratory normal respiratory effort and + prolonged expiratory phase Auscultation: lungs clear to auscultation bilaterally Cardiovascular Rate/Rhythm: regular rate and regular rhythm Heart Sounds: no murmur Vessels: no carotid bruit Extremities: + edema (mild 1+ pitting B/L ankles, pt reports baseline) Lab Results Anesthesia Preop Results Results Anesthesia Widget: WBC 5.13 K/uL (4.8-10.8) 12/25/20 Hgb 15.1 g/dL (14.0-18.0) 12/25/20 Hct 45.4 % (42-52) 12/25/20 Plt 176 K/uL (130-400) 12/25/20 Na 140 mmol/L (136-145) 12/25/20 K 4.0 mmol/L (3.5-5.1) 12/25/20 Cl 109 mmol/L (98-107) H 12/25/20 CO2 29 mmol/L (21-32) 12/25/20 BUN 15 mg/dl (7-18) 12/25/20 Creat 0.90 mg/dl (0.6-1.4) 12/25/20 Glucose Level 87 mg/dl (70-99) 12/25/20 PT 10.1 Seconds (9.0-12.0) 01/06/21 PTT 23.1 Seconds (21.0-31.0) 01/06/21 INR 1.0 (0.9-1.1) 01/06/21 Urine Color Yellow 01/06/21 Urine pH 7.0 (4.5-7.5) 01/06/21 Urine Specific Mack 1.006 (1.000-1.030) 01/06/21 Urine Protein Negative (Negative) 01/06/21 Urine Glucose (UA) Negative (Negative) 01/06/21 Urine Ketones Negative (Negative) 01/06/21 Urine Blood Negative (Negative) 01/06/21 Urine Nitrite Negative (Negative) 01/06/21 Urine Bilirubin Negative (Negative) 01/06/21 Urine Urobilinogen Negative (Negative) 01/06/21 Urine Leukocyte Esterase Negative (Negative) 01/06/21 Blood Type A Positive 01/06/21 Antibody Screen NEGATIVE 01/06/21 Testing Laboratory Results PT 10.1 Seconds (9.0-12.0) 01/06/21 11:55 INR 1.0 (0.9-1.1) 01/06/21 11:55 APTT 23.1 Seconds (21.0-31.0) 01/06/21 11:55 Urine Color Yellow 01/06/21 11:55 Urine Appearance Clear (Clear) 01/06/21 11:55 Urine pH 7.0 (4.5-7.5) 01/06/21 11:55 Ur Specific Mack 1.006 (1.000-1.030) 01/06/21 11:55 Urine Protein Negative (Negative) 01/06/21 11:55 Urine Glucose (UA) Negative (Negative) 01/06/21 11:55 Urine Ketones Negative (Negative) 01/06/21 11:55 Urine Nitrite Negative (Negative) 01/06/21 11:55 Ur Leukocyte Esterase Negative (Negative) 01/06/21 11:55 Blood Type A Positive 01/06/21 11:55 Antibody Screen NEGATIVE 01/06/21 11:55 Electrocardiogram Date: 01/02/21 Sinus rhythm at 60 bpm with borderline first-degree AV block. No significant change from previous. Chest X-Ray Date: 01/03/21 Findings: + NAD
[2021-01-06 12:16] LABS: Appearance Urine Clear (Clear); Bilirubin Urine Negative (Negative); Blood Urine Negative (Negative); Color Urine Yellow; Glucose Urine UA Negative (Negative); Ketones Urine Negative (Negative); Leukocyte Esterase Urine Negative (Negative); Nitrite Urine Negative (Negative); Protein Urine Negative (Negative); Specific Gravity Urine 1.006 (1.000-1.030); Urobilinogen Urine Negative (Negative)
[2021-01-06 12:27] LABS: Partial Thromboplastin Ratio 0.9; Partial Thromboplastin Time 23.1 Seconds (21.0-31.0); Prothrombin Time 10.1 Seconds (9.0-12.0)
[~2021-01-20 06:13] MED LIST changes: -BUPIVACAINE 0.5 % 5 MG/1 ML PF 10ML VIAL ONE; -CEFAZOLIN 2000MG 2,000 MG/15 ML SYR IV SCH; -FAMOTIDINE 20 MG TAB PO SCH; +LR 15ML/HR IV SCH; -LR 500ML BOLUS, THEN 15ML/HR IV SCH; -METOCLOPRAMIDE HCL 10 MG TABLET PO SCH; -ROPIVACAINE 0.5% HCL/PF 150 MG, BUPIVACAINE 0.5% MPF 30 ML, EPINEPHrine 30MG/30ML (OR U... INSTIL SCH; +ceFAZolin 2000MG 2,000 MG/15 ML SYR IV SCH; -dexAMETHasone 4 MG TAB PO SCH
[2021-01-20] MEDS ORDERED: MIDAZOLAM HCL 1 MG/ML 2ML VIAL ONE (06:55)
[2021-01-20] MEDS ORDERED: fentaNYL citrate 100 MCG/2 ML VIAL ONE (06:56)
[2021-01-20] MEDS ORDERED: ONDANSETRON INJ 2 MG/ML 2 ML VIAL ONE (07:00)
[2021-01-20] MEDS ORDERED: ROCURONIUM BROMIDE 10 MG/ML 5 ML VIAL IV ONE (07:00)
[2021-01-20] MEDS ORDERED: LIDOCAINE HCL 2% 2 ML VIAL/AMP(20MG/ML) INFIL ONE (07:00)
[2021-01-20] MEDS ORDERED: PROPOFOL IV EMULSION 10 MG/ML 20 ML VIAL IV ONE (07:00)
[2021-01-20] MEDS ORDERED: DEXAMETHASONE SOD INJ 4 MG/ML VIAL ONE (07:00)
[2021-01-20] MEDS ORDERED: ONDANSETRON INJ 2 MG/ML 2 ML VIAL IV PRN ×2 (07:04→09:51)
[2021-01-20] MEDS ORDERED: ATROPINE SULFATE 0.1 MG/ML 10ML SYR IV PRN (07:04)
[2021-01-20] MEDS ORDERED: LABETALOL HCL IV 5 MG/ML 20ML IV PRN (07:04)
[2021-01-20] MEDS ORDERED: BUPIVACAINE/EPINEPHRINE 0.5% MPF 1:200,000 30 ML VIAL ONE (07:08)
--- NOTE | 2021-01-20 07:35 | History & Physical Bridge Note ---
Date of Service January 20, 2021 History & Physical Bridge Note I have examined the patient, reviewed the History & Physical and in the interval since the performance of the History & Physical I have noted the following changes of clinical significance: no changes noted
--- NOTE | 2021-01-20 07:37 | History & Physical Report ---
Date of Service January 20, 2021 Assessment & Plan (1) Sacroiliitis: Admission and Anticipated Discharge Date Admission Date: Right sacroiliac joint fusion History of Present Illness Chief Complaint: Sacroiliitis Primary Care Provider: Gibran Mancuso III, YSABEL This is a 72-year-old male well-known to me the presents with chronic persistent sacroiliitis. After failing course of nonoperative care is here for surgical intervention. Allergies Allergy/AdvReac Type Severity Reaction Status Date / Time codeine Allergy Mild ITCHING Verified 01/20/21 06:39 misoprostol AdvReac Mild Diarrhea Verified 01/20/21 06:39 Home Medications Medication Instructions Recorded Confirmed Type multivitamin [Daily-Robinson] 1 tab PO QAM #30 tab 05/07/19 01/20/21 Rx diphenhydramine 25 1 tab PO HS PRN 09/28/19 01/02/21 History mg-acetaminophen 500 mg tablet nystatin-triamcinolone 100,000 1 appln TOP TID PRN #60 gm 12/11/19 01/02/21 Rx unit/gram-0.1 % topical ointment cholecalciferol (vitamin D3) 125 125 mcg PO QAM 03/25/20 01/20/21 History mcg (5,000 unit) capsule ferrous sulfate 325 mg (65 mg 325 mg PO QAM 03/25/20 01/02/21 History iron) tablet lovastatin 40 mg tablet 40 mg PO DAILY #90 tab 05/08/20 01/20/21 Rx gabapentin 300 mg capsule 300 mg PO BID #180 cap 05/17/20 01/02/21 Rx folic acid 1 mg tablet 6 mg PO QAM #540 tab 06/17/20 01/02/21 Rx finasteride 5 mg tablet 5 mg PO QAM #90 tab 06/27/20 01/20/21 Rx montelukast 10 mg tablet 10 mg PO QPM #90 tab 07/04/20 01/02/21 Rx trazodone 100 mg tablet 100 mg PO DAILY #90 tab 07/04/20 01/02/21 Rx cholestyramine (with sugar) 4 gram 4 g PO BID #378 gm 09/24/20 01/20/21 Rx oral powder esomeprazole magnesium 40 mg 40 mg PO DAILY #90 cap 09/24/20 01/20/21 Rx capsule,delayed release fluticasone propionate 50 1 spray INTRANASAL DAILY #9.9 ml 11/26/20 01/20/21 Rx mcg/actuation nasal spray,suspension Past Med/Surg History Medical History BPH (benign prostatic hyperplasia) Degenerative disc disease 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) s/p long car ride Hyperlipidemia 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 Osteoarthritis Venous insufficiency (chronic) (peripheral) Surgical History History of arthroscopy of left shoulder History of cataract extraction with lens replacement RT/LEFT History of colonoscopy History of elbow surgery RT History of esophagogastroduodenoscopy (EGD) History of hemorrhoidectomy History of repair of rotator cuff RT/LEFT History of tooth extraction History of total hip arthroplasty RT History of total knee replacement RT/LEFT History of vasectomy History of vitrectomy LEFT Family History Unknown Diabetes High cholesterol Grandmother (Maternal) Diabetes Family history of diabetes mellitus Grandmother (Paternal) Diabetes Family history of diabetes mellitus Father Heart disease Cardiac disorder Myocardial infarction Mother Cancer Other No family history of adverse response to anesthesia Denies family history of Ovarian cancer Prostate cancer Breast cancer Colorectal cancer Social History Smoking Status: Former smoker Smoking End Date: QUIT 30 YEARS AGO; Second Hand Exposure: No; Do You Dip or Chew Tobacco: No (QUIT 30 YEARS AGO); Tobacco Cessation Education Requested by Patient: No Hx Alcohol Use: Yes Alcohol type: wine Hx Substance Use: No Preferred Language: Kiswahili Communication Ability: Effective Visual Impairment: No Limitations Hearing Ability: Use of Hearing Aid Saddle Stitch Operator Required: No Beliefs That Will Affect Care: None marital status: Current Living Situation: Spouse current occupational status: retired Feels Safe at Home: Yes Safety Concerns: Feels Safe At This Time Childhood Exposure to Second-Hand Smoke: Yes Dental Care, Regularly: Yes Physical Activity Frequency: Daily Seatbelt Use: always Sunscreen Use: No Assistive Devices: Denture - Upper, Denture - Lower and Hearing Aid - Bilateral Physical Exam Physical Exam: Patient is alert and oriented Heart regular in rhythm Lungs clear to auscultation Results & Data ([facility]) Vital Signs (Past 12 Hours) Vital Signs Temp Resp BP Pulse Ox 01/20/21 06:53 36.5 C 20 123/65 94
[2021-01-20] MEDS ORDERED: PHENYLEPHRINE 100MCG/ML 5ML SYR ONE (08:06)
[2021-01-20] MEDS ORDERED: GLYCOPYRROLATE 0.2 MG/ML VIAL ONE (08:25)
[2021-01-20] MEDS ORDERED: NEOSTIGMINE METHYLSULFATE 1 MG/ML 10ML VIAL ONE (08:25)
[2021-01-20] MEDS ORDERED: FLOSEAL HEMOSTATIC MATRIX 10ML TOP ONE (08:33)
--- NOTE | 2021-01-20 08:37 | Operative Report ---
Post Operative Report Pre & Post Diagnosis Operation Date: 01/20/21 07:45 Pre-Op Diagnosis: Sacroiliitis Post-Op Diagnosis: Sacroiliitis I identified the patient and participated in the time-out.: Yes Procedure Operation Date: 01/20/21 07:45 Actual Procedures #1 open right SI joint fusion. #2 placement of 25 mm bony allograft filled with infuse within the right SI joint. #3 placement of 2 globus percutaneous SI joint screws both GONZÁLES-coated and filled with infuse. Surgeon Bebeto Stanley, Route Service Representative Agnes Nunez Estimated Blood Loss 20 Findings Consistent with Post-Op Diagnosis Specimens None Indications This is a 80-year-old male who presents with bulge diagnosis after failing course of nonoperative care is here for surgical invention. Description of Procedure Patient was met with identified informed consent obtained. Patient was then taken to the operative suite underwent a patient placed in a prone position Edilson table chest padded bolsters. All bony prominences well-padded eyes inspected to ensure no external pressure placed upon the. This point the right upper buttock was prepped and draped in a sterile fashion. The assistance of fluoroscopy identified the right SI joint. I then plan made approximately 3 cm incision directly over the posterior aspect of the right SI joint. Sharp dissection was performed down to and exposing the posterior entrance to the joint. I then placed a guidewire in the joint followed by joint director transportation and a cannula over the joint director transportation. I then drilled out and curetted out the joint. I then placed a 25 mm bony allograft with infuse collagen sponge directly in the joint. Verified placed final position with fluoroscopy. Then placed a second incision along the right upper buttock approximately 3 cm in length along the posterior sacral slope. A guidewire was then inserted and placed across the proximal aspect of the right SI joint utilizing fluoroscopy and inlet outlet and lateral views. I then drilled across the SI joint and placed a 50 mm GONZÁLES-coated slotted globus screw filled with infuse collagen sponge and local autograft. I demonstrated excellent alignment and purchase. I then used an outrigger guide to place a second distal screw in a similar fashion. The screw was 40 mm in length GONZÁLES-coated slotted filled with local autograft and infuse. Again it demonstrated excellent alignment and purchase. The incisions were then copiously irrigated closed with subcutaneous Vicryl and 4 Monocryl for final skin closure. Steri-Strip sterile dressings placed. Patient will continue PACU stable condition. Please note Agnes was present at the entire surgery involved the patient positioning complex portions of the surgery and final skin closure. I attest to the content of the Intraoperative Record and any orders documented therein. Any exceptions are noted below.
--- NOTE | 2021-01-20 09:06 | Fluoroscopy Report ---
FL sacrum HISTORY: 80 years-old Male RT SACROILIAC JOINT FUSION chronic pelvic pain COMPARISON: Pelvis and hip radiographs 05/05/2019 TECHNIQUE: 3 spot fluoroscopic images of the pelvis were obtained utilizing 76.3 seconds fluoroscopy time FINDINGS: Status post placement of 2 cannulated bolts traversing what is labeled the right sacroiliac joint. Th e bones appear intact. No unexpected opaque foreign body identified. Right hip total joint arthroplas ty. IMPRESSION: Fluoroscopic assistance as above. ACT 112: Negative or not required by law. The above report was generated using voice recognition software. It may contain grammatical, syntax o r spelling errors. Electronically signed by: Mani Dunn M.D. 01/20/2021 9:05 AM
[2021-01-20] MEDS: HYDROmorphone INJ 1 MG/ML SYRINGE IV PRN ×2 (09:08→09:13)
[2021-01-20] MEDS ORDERED: oxyCODONE HCL IR 5 MG TAB (IMMEDIATE RELEASE) PO PRN (09:51)
[2021-01-20] MEDS ORDERED: NON-FORMULARY MEDICATION (Diphenhydramine-Acetaminophen [Tylenol Pm Extra Strength] 25-500 PO PRN (09:51)
[2021-01-20] MEDS ORDERED: traMADol HCL 50 MG TABLET PO PRN (09:51)
[2021-01-20] MEDS ORDERED: traZODone HCL 100 MG TAB PO SCH ×2 (09:51→21:00)
[2021-01-20] MEDS ORDERED: FAMOTIDINE 20 MG TAB PO PRN (09:51)
[2021-01-20] MEDS ORDERED: LORazepam 0.5 MG TAB PO PRN (09:51)
[2021-01-20] MEDS ORDERED: HYDROmorphone INJ 1 MG/ML SYRINGE IV PRN (09:51)
[2021-01-20] MEDS ORDERED: diphenhydrAMINE Capsule 25 MG CAP PO PRN (09:51)
[2021-01-20] MEDS ORDERED: ALUMINUM/MAGNESIUM SUSP 30 ML UDC PO PRN (09:51)
[2021-01-20] MEDS ORDERED: ACETAMINOPHEN 1,000 MG/100 ML VIAL IV PRN (09:51)
[2021-01-20] MEDS ORDERED: SOD PHOSPHATE/SOD BIPHOSPHATE ENEMA 132 ML BTL PR PRN (09:51)
[2021-01-20] MEDS ORDERED: hydrOXYzine HCl 25 MG TAB PO PRN (09:51)
[2021-01-20] MEDS ORDERED: PROMETHAZINE HCL 12.5 MG in SODIUM CHLORIDE 0.9% 50 ML IV PRN (09:51)
[2021-01-20] MEDS ORDERED: LORazepam 0.5 MG/1 ML VIAL IV PRN (09:51)
[2021-01-20] MEDS ORDERED: MAGNESIUM HYDROXIDE SUSP 30 ML UDC PO PRN (09:51)
[2021-01-20] MEDS ORDERED: HYDROmorphone INJ 0.5 MG/0.5 ML SYR IV PRN (09:51)
[2021-01-20] MEDS ORDERED: ONDANSETRON 4 MG OD TAB PO PRN (09:51)
[2021-01-20] MEDS ORDERED: ACETAMINOPHEN 500 MG TAB PO PRN (09:51)
[2021-01-20] MEDS ORDERED: METOCLOPRAMIDE HCL INJ 5 MG/ML 2 ML VIAL IV PRN (09:51)
[2021-01-20] MEDS ORDERED: NALOXONE HCL 0.4 MG/1 ML VIAL/CARP IV PRN (09:51)
--- NOTE | 2021-01-20 10:29 | Anesthesiology Progress Note ---
Date of Service January 20, 2021 Anesthesia Post Procedure Vital Signs Vital Signs: Temp Pulse Pulse Resp BP BP Pulse Ox 01/20/21 10:08 66 16 117/72 92 01/20/21 09:40 36.5 C 68 14 111/67 95 01/20/21 09:30 36.8 C 70 12 107/63 93 01/20/21 09:20 72 12 104/63 93 01/20/21 09:10 67 12 115/65 100 01/20/21 09:00 69 18 109/43 L 100 01/20/21 08:52 36.2 C L 77 18 130/77 100 01/20/21 06:53 36.5 C 20 123/65 94 Pain Intensity Right Back: Pain Intensity: 4 Right Hip: Pain Intensity: 3 Transfer of Care Handoff Completed per policy Notes Mental Status: alert / awake / arousable Patient Amnestic to Procedure: Yes Nausea / Vomiting: adequately controlled Pain: adequately controlled Airway Patency, RR, SpO2: stable & adequate BP & HR: stable & adequate Hydration State: stable & adequate Anesthetic Complications: no major complications apparent
[2021-01-20] MEDS ORDERED: NURSING DECISION MEDICATION ONE (12:11)
[2021-01-20] MEDS ORDERED: COUGH DROP (SUGAR FREE) LOZ 24 LOZ/1 BOX BUCCAL PRN (12:12)
[2021-01-20] MEDS: FINASTERIDE 5 MG TAB PO SCH (12:22)
[2021-01-20] MEDS: FLUTICASONE PROPIONATE NA SPR 16 GM BTL SCH (12:22)
[2021-01-20] MEDS: GABAPENTIN 300 MG CAP PO SCH ×2 (12:23→22:54)
[2021-01-20] MEDS: MULTIVITAMIN TAB PO SCH (12:23)
[2021-01-20] MEDS: LOVASTATIN 20 MG TAB PO SCH (12:23)
[2021-01-20] MEDS: CHOLECALCIFEROL 1,000 UNITS 25 MCG TAB PO SCH (12:23)
[2021-01-20] MEDS: LACTATED RINGER'S 1,000 ML IV SCH (12:30)
[2021-01-20] MEDS: FOLIC ACID 1 MG TAB PO SCH (12:37)
[2021-01-20] MEDS: FERROUS SULFATE 325 MG TAB PO SCH (12:37)
[2021-01-20] MEDS ORDERED: Nursing to Pharmacy Communication SCH (12:45)
[2021-01-20] MEDS: CHOLESTYRAMINE LIGHT 4 GM PKT PO SCH (22:55)
[2021-01-21] MEDS: LACTATED RINGER'S 1,000 ML IV SCH ×2 (03:00→13:59)
[2021-01-21] MEDS: CHOLECALCIFEROL 1,000 UNITS 25 MCG TAB PO SCH (08:21)
[2021-01-21] MEDS: FERROUS SULFATE 325 MG TAB PO SCH (08:21)
[2021-01-21] MEDS: FLUTICASONE PROPIONATE NA SPR 16 GM BTL SCH (08:22)
[2021-01-21] MEDS: FINASTERIDE 5 MG TAB PO SCH (08:22)
[2021-01-21] MEDS: FOLIC ACID 1 MG TAB PO SCH (08:23)
[2021-01-21] MEDS: MULTIVITAMIN TAB PO SCH (08:23)
[2021-01-21] MEDS: GABAPENTIN 300 MG CAP PO SCH (08:23)
[2021-01-21] MEDS: LOVASTATIN 20 MG TAB PO SCH (08:23)
[2021-01-21] MEDS: CHOLESTYRAMINE LIGHT 4 GM PKT PO SCH (08:24)
[2021-01-21] MEDS ORDERED: PANTOprazole 40 MG TAB PO SCH (09:00)
--- NOTE | 2021-01-21 13:56 | Discharge Summary ---
Date of Service January 21, 2021 Admission HPI Per Admitting Provider This is a 72-year-old male well-known to me the presents with chronic persistent sacroiliitis. After failing course of nonoperative care is here for surgical intervention. Admission Exam (Per Admitting) Constitutional WD/WN, vitals as above Eyes normal visual funk by confrontation ENMT external ear and nose normal, oropharynx normal Neck normal visual inspection Respiratory normal respiratory effort Cardiovascular Extremities: normal capillary refill Chest (Breasts) Chest: normal inspection of chest Gastrointestinal (Abdomen) Inspection/Auscultation: abdomen normal to inspection Musculoskeletal no cyanosis or clubbing, extremities motor strength 5/5 Spine: + sciatic notch tenderness Skin no rashes, warm and dry Neurologic normal touch/pain/proprioception and moves all extremities Psychiatric A+Ox3, euthymic affect Discharge Data Procedures Performed Operation Date: 01/20/21 07:45 Actual Procedures p Right Sacroiliac Joint Fusion(Right) - Bebeto Stanley DO Hospital Course (1) Sacroiliitis: Patient has had an uncomplicated postoperative course status post right SI joint fusion. He is being discharged home on postoperative day 1. He has met all criteria for discharge. He is maintaining toe-touch weightbearing status right lower extremity with the assistance of a walker. Discharge Instructions Toe-touch weightbearing status right lower extremity. Must use walker when ambulating. No driving for 1 week. We will follow up in the office in 2 weeks. May shower postoperative day 3. No soaking in a tub or pool Supervising Physician Co-Signing Physician Notes Dr. Bebeto Stanley
[2021-01-22] MEDS ORDERED: bisacodyL 10 MG SUPP PR PRN (08:42)
== END 2021-01-21 14:35 | disposition home or self-care (01) | DRG 460 ==
LOC: ASU 06:13 → 3E 09:10

== ENCOUNTER 2021-06-30 08:25 | Inpatient (IN) ==
[2021-06-30] MEDS ORDERED: MoRPHine SULFATE 2 MG/ML CARP IV STA (09:00)
[2021-06-30] MEDS ORDERED: SODIUM CHLORIDE 0.9% 500 ML IV ONE (09:00)
[2021-06-30] MEDS ORDERED: dexAMETHasone**PF** 10 MG/ML VIAL IV ONE (09:00)
[2021-06-30] MEDS ORDERED: ACETAMINOPHEN 1,000 MG/100 ML VIAL IV STA (09:00)
--- NOTE | 2021-06-30 09:08 | Emergency Department Note ---
Impression & Plan Lumbar disc herniation with radiculopathy ED Provider Note NAME: TAN POZO JR AGE: 81 SEX: M ARRIVES VIA: Walk-In INFORMANT: Patient, ED PROVIDER(S): Roberto Carlos Sauceda MD CHIEF COMPLAINT: Back pain PLAN: Disposition: Admit MEDICAL DECISION MAKING: The patient is a pleasant 81 gentleman with a past medical history of lumbar di sc disease with herniation and radiculopathy, spinal stenosis with symptoms that have worsened over the past several months and had surgery scheduled for last week which was canceled/postponed with his surgeon Dr. Stanley. He presents to the emergency department today because his symptoms have not improved though admits to the symptoms not worsening per se. But feels as though he is unable to function as he is needing to walk with a cane to maintain his balance and in constant pain. He reports he had tried Tylenol but this did not help so he is not taking any medications for pain. He reports he took a course of steroids a week or so ago but this only minimally helped. He is hoping to get relief from his pain and symptoms today. He is hopeful he could be admitted for pain control and possible surgery. He denies any loss of bowel control or urinary retention. He denies fevers, chills, cough, congestion, GI or symptoms. On arrival the patient is in no acute distress, afebrile stable vital signs. He appears clinically dry. He has normal strength in bilateral lower extremities but range of motion does elicit pain in his lower back which radiates across his anterior upper legs. Reflexes are 2+ bilaterally. There is no clonus. L5 is intact bilaterally. Case d/w Agnes Hall, PAC with Dr. Stanley orthopedic spine, who evaluated the patient at the bedside and will admit the patient for further management and likely OR tomorrow. WBC, H/H, platelets wnl. Chemistry without acidosis. Electrolytes unremarkable. LFTs without significant abnormality. Covid-19 PCR negative. EKG without overt acute ischemia. Triage Nursing notes reviewed and agree them. Prior medical records reviewed Vital Signs: reviewed and remarkable for no significant abnormalities Differential diagnosis: Musculoskeletal, disc herniation, fracture, metastatic disease, cord compression, discitis, sciatica, cauda equina, infection, aortic disease, renal colic, gastrointestinal, as well as other pathologies. ER treatment provided: See below. Diagnostics interpreted by me: ECG: Sinus rhythm with sinus arrhythmia, 68 bpm, occasional PVCs, no overt ST elevation or depression. Cardiac Monitoring: An order for continuous cardiac monitoring was placed and demonstrated Sinus rhythm with sinus arrhythmia, 68 bpm, occasional PVCs. Laboratory studies: See below Imaging studies: See below Consultation(s): Agnes Hall, PAC with Dr. Stanley orthopedic spine, HPI: The patient is a pleasant 81 gentleman with a past medical history of lumbar disc disease with herniation and radiculopathy, spinal stenosis with symptoms that have worsened over the past several months and had surgery scheduled for last week which was canceled/postponed with his surgeon Dr. Stanley. He presents to the emergency department today because his symptoms have not improved though admits to the symptoms not worsening per se. But feels as though he is unable to function as he is needing to walk with a cane to maintain his balance and in constant pain. He reports he had tried Tylenol but this did not help so he is not taking any medications for pain. He reports he took a course of steroids a week or so ago but this only minimally helped. He is hoping to get relief from his pain and symptoms today. He is hopeful he could be admitted for pain control and possible surgery. He denies any loss of bowel control or urinary retention. He denies fevers, chills, cough, congestion, GI or symptoms. ROS: See above HPI for pertinent positives & negatives. A total of 10 systems reviewed and were otherwise negative. PAST MEDICAL HISTORY:See Below PAST SURGICAL HISTORY:See Below FAMILY HISTORY:See Below SOCIAL HISTORY:See Below HOME MEDICATIONS:See Below ALLERGIES:See Below VITALS:See Below PHYSICAL EXAMINATION: GENERAL: Awake, alert, uncomfortable-appearing, in no distress HENT: Normocephalic, atraumatic. Oropharynx unremarkable. EYES: Normal conjunctiva. Sclera non-icteric. NECK: Supple. No nuchal rigidity. FROM. No JVD. RESPIRATORY: Clear to auscultation. CARDIAC: Regular rate, normal rhythm. Extremities warm and well perfused. Pulses equal. ABDOMEN: Soft, non-distended. No tenderness to palpation. No rebound or guarding. No masses. RECTAL: Deferred. MUSCULOSKELETAL: Chest examination reveals no tenderness. The back is symmetrical on inspection without obvious abnormality. Mild lower lumbar tenderness without bony crepitus or step-offs. There is no CVA tenderness to palpation. No joint edema. LOWER EXTREMITIES: Calves are equal size bilaterally and non-tender. No edema. No discoloration. NEURO: Normal sensorium. No sensory or motor deficits noted. normal strength in bilateral lower extremities but range of motion does elicit pain in his lower back which radiates across his anterior upper legs. Reflexes are 2+ bilaterally. There is no clonus. L5 is intact bilaterally SKIN: No rash or jaundice noted. 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 Bebeto Stanley- Open R SI joint fusion, placement of 25 mm bony allograft filled with infuse within the R SI joint, placement of 2 globus percutaneous SI joint screws both GONZÁLES-coated and filled with infuse History of arthroscopy of left shoulder History of cataract extraction with lens replacement RT/LEFT History of colonoscopy History of elbow surgery RT History of esophagogastroduodenoscopy (EGD) History of hemorrhoidectomy History of repair of rotator cuff RT/LEFT History of tooth extraction History of total hip arthroplasty RT History of total knee replacement RT/LEFT History of vasectomy History of vitrectomy LEFT Family History Unknown Diabetes High cholesterol Grandmother (Maternal) Diabetes Family history of diabetes mellitus Grandmother (Paternal) Diabetes Family history of diabetes mellitus Father Heart disease Cardiac disorder Myocardial infarction Mother Cancer Other No family history of adverse response to anesthesia Denies family history of Ovarian cancer Prostate cancer Breast cancer Colorectal cancer Social History Smoking Status: Former smoker Smoking End Date: 25-30 years ago; Second Hand Exposure: No; Do You Dip or Chew Tobacco: No (quit 25-30 years ago); Hx Alcohol Use: Yes Alcohol type: wine Hx Substance Use: No Preferred Language: Estonian Communication Ability: Effective Visual Impairment: No Limitations Hearing Ability: Use of [employer] Desktop Support Specialist Required: No Beliefs That Will Affect Care: None marital status: Current Living Situation: Spouse current occupational status: retired Other Information That Helps Us Care for You: No Feels Safe at Home: Yes Safety Concerns: Feels Safe At This Time Childhood Exposure to Second-Hand Smoke: Yes Dental Care, Regularly: Yes Physical Activity Frequency: Daily Seatbelt Use: always Sunscreen Use: No Assistive Devices: Cane, Denture - Upper, Denture - Lower and Glasses Assistive Devices Comment: glasses for reading, upper and lower partials, hearing aids (not here) Allergies Allergies Allergy/AdvReac Type Severity Reaction Status Date / Time codeine Allergy Mild ITCHING Verified 06/30/21 09:40 misoprostol AdvReac Mild Diarrhea Verified 06/30/21 09:40 Home Meds Home Medications Medication Instructions Recorded Confirmed diphenhydramine 25 1 tab PO HS PRN 09/28/19 06/30/21 mg-acetaminophen 500 mg tablet (Tylenol PM Extra Strength) cholecalciferol (vitamin D3) 125 125 mcg PO QAM 03/25/20 06/30/21 mcg (5,000 unit) capsule ferrous sulfate 325 mg (65 mg 325 mg PO QAM 03/25/20 06/30/21 iron) tablet Previous Rx's Medication Instructions Recorded multivitamin (Daily-Robinson) 1 tab PO QAM #30 tab 05/07/19 nystatin-triamcinolone 100,000 1 appln TOP TID PRN #60 gm 12/11/19 unit/gram-0.1 % topical ointment finasteride 5 mg tablet 5 mg PO QAM #90 tab 06/27/20 trazodone 100 mg tablet 100 mg PO DAILY #90 tab 02/06/21 montelukast 10 mg tablet 10 mg PO QPM #90 tab 02/24/21 (Singulair) gabapentin 300 mg capsule 300 mg PO BID #180 cap 02/27/21 fluticasone propionate 50 1 spray INTRANASAL DAILY #15.8 ml 03/10/21 mcg/actuation nasal spray,suspension (Allergy Relief (fluticasone)) cholestyramine (with sugar) 4 gram 4 g PO BID #378 gm 03/12/21 oral powder esomeprazole magnesium 40 mg 40 mg PO DAILY #90 cap 03/21/21 capsule,delayed release folic acid 1 mg tablet 6 mg PO QAM #540 tab 05/21/21 baclofen 10 mg tablet 10 mg PO TID PRN #90 tab 05/22/21 lovastatin 40 mg tablet 40 mg PO DAILY #90 tab 05/30/21 Results & Data (ED) Vital Signs Vital Signs - 24 hr 06/30/21 08:38 06/30/21 09:30 06/30/21 09:34 Temperature 36.3 C L Temperature Source Temporal Artery Scan Pulse Rate 89 70 Pulse Rate [Finger] 76 Respiratory Rate 16 14 17 Respiratory Effort / Characteristics Non-Labored Respiratory Depth Normal Blood Pressure 128/76 Blood Pressure [Left Arm] 132/78 Blood Pressure Mean 93 Blood Pressure Mean [Left Arm] 96 Pulse Oximetry 95 98 Oxygen Delivery Method Room Air Sepsis Recent Fever Within 48 Hours No Sepsis New/Unexplained Change in Mental Status No Sepsis Action Taken by Nursing No Action Required 06/30/21 09:40 Temperature Temperature Source Pulse Rate 65 Pulse Rate [Finger] Respiratory Rate 15 Respiratory Effort / Characteristics Respiratory Depth Blood Pressure Blood Pressure [Left Arm] Blood Pressure Mean Blood Pressure Mean [Left Arm] Pulse Oximetry Oxygen Delivery Method Sepsis Recent Fever Within 48 Hours Sepsis New/Unexplained Change in Mental Status Sepsis Action Taken by Nursing Laboratory Data Attestation: I reviewed the patient's lab results. Result diagrams: 06/30/21 09:10 06/30/21 09:10 Lab Results 06/30/21 06/30/21 06/30/21 Range/Units 09:10 09:10 09:10 WBC 5.55 (4.8-10.8) K/uL RBC 4.57 L (4.7-6.1) M/uL Hgb 14.3 (14.0-18.0) g/dL Hct 43.6 (42-52) % MCV 95.4 (80-100) fL MCH 31.3 (25-34) pg MCHC 32.8 (32-36) g/dL RDW Std Deviation 46.3 (36.4-46.3) fL RDW Coeff of Joce 13.4 (11.5-14.5) % Plt Count 176 (130-400) K/uL MPV 9.8 (7.4-10.4) fL Immature Gran % (Auto) 0.2 % Neut % (Auto) 54.3 % Lymph % (Auto) 33.2 % Faulk % (Auto) 10.8 % Eos % (Auto) 1.1 % Baso % (Auto) 0.4 % Neut # (Auto) 3.02 (1.4-6.5) K/uL Lymph # (Auto) 1.84 (1.2-3.4) K/uL Faulk # (Auto) 0.60 H (0.11-0.59) K/uL Eos # (Auto) 0.06 (0-0.5) K/uL Baso # (Auto) 0.02 (0-0.2) K/uL Immature Gran # (Auto) 0.01 (0.00-0.02) K/uL PT 10.2 (9.0-12.0) Seconds INR 1.0 (0.9-1.1) Sodium 142 (136-145) mmol/L Potassium 4.3 (3.5-5.1) mmol/L Chloride 108 H (98-107) mmol/L Carbon Dioxide 27 (21-32) mmol/L Anion Gap 7.0 (3-11) BUN 12 (7-18) mg/dl Creatinine 0.84 (0.6-1.4) mg/dl Est Cr Clr Drug Dosing 83.3 ml/min Est GFR ( Amer) 96.5 ml/min Est GFR (Non-Af Amer) 83.3 ml/min BUN/Creatinine Ratio 14.6 (10-20) Glucose 92 (70-99) mg/dl Calcium 8.7 (8.5-10.1) mg/dl Total Bilirubin 0.5 (0.2-1) mg/dl AST 16 (15-37) U/L ALT 28 (12-78) U/L Alkaline Phosphatase 58 (45-117) U/L Total Protein 6.4 (6.4-8.2) gm/dl Albumin 3.1 L (3.4-5.0) gm/dl Globulin 3.2 (2.5-4.0) gm/dl Albumin/Globulin Ratio 1.0 (0.9-2) COVID-19 Eval Order SARS-CoV-2 (PCR) (Negative) 06/30/21 06/30/21 Range/Units 09:14 09:14 WBC (4.8-10.8) K/uL RBC (4.7-6.1) M/uL Hgb (14.0-18.0) g/dL Hct (42-52) % MCV (80-100) fL MCH (25-34) pg MCHC (32-36) g/dL RDW Std Deviation (36.4-46.3) fL RDW Coeff of Joce (11.5-14.5) % Plt Count (130-400) K/uL MPV (7.4-10.4) fL Immature Gran % (Auto) % Neut % (Auto) % Lymph % (Auto) % Faulk % (Auto) % Eos % (Auto) % Baso % (Auto) % Neut # (Auto) (1.4-6.5) K/uL Lymph # (Auto) (1.2-3.4) K/uL Faulk # (Auto) (0.11-0.59) K/uL Eos # (Auto) (0-0.5) K/uL Baso # (Auto) (0-0.2) K/uL Immature Gran # (Auto) (0.00-0.02) K/uL PT (9.0-12.0) Seconds INR (0.9-1.1) Sodium (136-145) mmol/L Potassium (3.5-5.1) mmol/L Chloride (98-107) mmol/L Carbon Dioxide (21-32) mmol/L Anion Gap (3-11) BUN (7-18) mg/dl Creatinine (0.6-1.4) mg/dl Est Cr Clr Drug Dosing ml/min Est GFR ( Amer) ml/min Est GFR (Non-Af Amer) ml/min BUN/Creatinine Ratio (10-20) Glucose (70-99) mg/dl Calcium (8.5-10.1) mg/dl Total Bilirubin (0.2-1) mg/dl AST (15-37) U/L ALT (12-78) U/L Alkaline Phosphatase (45-117) U/L Total Protein (6.4-8.2) gm/dl Albumin (3.4-5.0) gm/dl Globulin (2.5-4.0) gm/dl Albumin/Globulin Ratio (0.9-2) COVID-19 Eval Order Covid19 at [facility] SARS-CoV-2 (PCR) NEGATIVE (Negative) Administered Medications Cholestyramine Resin (Cholestyramine Light 4 Gm Pkt) 4 gm PO BID@1000,2200 LUIS FELIPE Stop: 07/30/21 21:59 Last Admin: 06/30/21 20:38 Dose: 4 gm Documented by: [id number] Gabapentin (Gabapentin 300 Mg Cap) 300 mg PO BID LUIS FELIPE Stop: 07/30/21 20:59 Last Admin: 06/30/21 20:36 Dose: 300 mg Documented by: [id number] Dexamethasone 8 mg/ Syringe 2 mls @ 1 mls/min IV Q8H LUIS FELIPE Stop: 07/01/21 09:01 Last Admin: 06/30/21 17:20 Dose: 1 mls/min Documented by: [id number] Lactated Ringer's (Lr) 1,000 mls @ 75 mls/hr IV .[id number] LUIS FELIPE Stop: 07/30/21 13:50 Last Admin: 06/30/21 15:52 Dose: 75 mls/hr Documented by: [id number] Montelukast Sodium (Montelukast Sodium 10 Mg Tablet) 10 mg PO QPM LUIS FELIPE Stop: 07/30/21 20:59 Last Admin: 06/30/21 20:36 Dose: 10 mg Documented by: [id number] Discontinued Medications Dexamethasone Sodium Phosphate (DexamethasonePf 10 Mg/Ml Vial) 10 mg IV NOW ONE Stop: 06/30/21 09:01 Last Admin: 06/30/21 09:12 Dose: 10 mg Documented by: [id number] Sodium Chloride (Nss) 500 mls @ 999 mls/hr IV .Q31M ONE Stop: 06/30/21 09:30 Last Infusion: 06/30/21 11:08 Dose: 0 mls/hr Documented by: [id number] Admin: 06/30/21 09:13 Dose: 999 mls/hr Documented by: [id number] Acetaminophen (Ofirmev) 1,000 mg in 100 mls @ 400 mls/hr IV NOW STA Stop: 06/30/21 09:14 Last Infusion: 06/30/21 09:45 Dose: 0 mls/hr Documented by: [id number] Admin: 06/30/21 09:12 Dose: 400 mls/hr Documented by: [id number] Morphine Sulfate (Morphine Sulfate 2 Mg/Ml Carp) 2 mg IV NOW STA Stop: 06/30/21 09:01 Last Admin: 06/30/21 09:12 Dose: 2 mg Documented by: [id number] Discharge Plan Visit Data Chief Complaint: Back Injury/Pain Stated Complaint: LOWER BACK PAIN ED Provider: Roberto Carlos Sauceda Discharge Problem: Lumbar disc herniation with radiculopathy Patient Disposition: Admitted As Inpatient Discharge Instructions Interventions: ED Discharge Assessment Last Done: 06/30/21 16:28
[2021-06-30 09:40] LABS: Basophils # (auto) 0.02 K/uL (0-0.2); Basophils % (auto) 0.4 %; Eosinophils # (auto) 0.06 K/uL (0-0.5); Eosinophils % (auto) 1.1 %; Hematocrit (blood only) 43.6 % (42-52); Hemoglobin 14.3 g/dL (14.0-18.0); Immature Granulocytes # (auto) 0.01 K/uL (0.00-0.02); Immature Granulocytes % (auto) 0.2 %; Lymphocytes # (auto) 1.84 K/uL (1.2-3.4); Lymphocytes % (auto) 33.2 %; Mean Corpuscular Hemoglobin 31.3 pg (25-34); Mean Corpuscular Hgb Conc 32.8 g/dL (32-36); Mean Corpuscular Volume 95.4 fL (80-100); Mean Platelet Volume 9.8 fL (7.4-10.4); Monocytes % (auto) 10.8 %; Neutrophils # (auto) 3.02 K/uL (1.4-6.5); Neutrophils % (auto) 54.3 %; Platelet Count 176 K/uL (130-400); RDW Coefficient of Variation 13.4 % (11.5-14.5); RDW Standard Deviation 46.3 fL (36.4-46.3); Red Blood Count 4.57 M/uL (4.7-6.1); White Blood Count 5.55 K/uL (4.8-10.8)
[2021-06-30] MEDS ORDERED: HYDROmorphone INJ 1 MG/ML SYRINGE IV PRN (09:44)
[2021-06-30] MEDS ORDERED: LORazepam 0.5 MG TAB PO PRN (09:44)
[2021-06-30] MEDS ORDERED: HYDROmorphone INJ 0.5 MG/0.5 ML SYR IV PRN (09:44)
[2021-06-30] MEDS ORDERED: PROMETHAZINE HCL 12.5 MG in SODIUM CHLORIDE 0.9% 50 ML IV PRN (09:44)
[2021-06-30] MEDS ORDERED: ONDANSETRON INJ 2 MG/ML 2 ML VIAL IV PRN (09:44)
[2021-06-30] MEDS ORDERED: ACETAMINOPHEN 500 MG TAB PO PRN (09:44)
[2021-06-30] MEDS ORDERED: LORazepam 0.5 MG/1 ML VIAL IV PRN (09:44)
[2021-06-30] MEDS ORDERED: ONDANSETRON 4 MG OD TAB PO PRN (09:44)
[2021-06-30] MEDS ORDERED: oxyCODONE HCL IR 5 MG TAB (IMMEDIATE RELEASE) PO PRN (09:44)
[2021-06-30] MEDS ORDERED: METOCLOPRAMIDE HCL INJ 5 MG/ML 2 ML VIAL IV PRN (09:44)
[2021-06-30] MEDS ORDERED: NALOXONE HCL 0.4 MG/1 ML VIAL/CARP IV PRN (09:44)
[2021-06-30] MEDS ORDERED: diphenhydrAMINE Capsule 25 MG CAP PO PRN (09:44)
[2021-06-30] MEDS ORDERED: ACETAMINOPHEN 1,000 MG/100 ML VIAL IV PRN (09:44)
[2021-06-30 09:51] LABS: Prothrombin Time 10.2 Seconds (9.0-12.0)
[2021-06-30 10:01] LABS: Albumin Level 3.1 gm/dl (3.4-5.0); BUN Creatinine Ratio 14.6 (10-20); Calcium 8.7 mg/dl (8.5-10.1); Creatinine Clr Calc Pharmacy 83.3 ml/min; Est GFR (African American) 96.5 ml/min; Est GFR (Non-African American) 83.3 ml/min; Potassium 4.3 mmol/L (3.5-5.1)
--- NOTE | 2021-06-30 10:01 | History & Physical Report ---
Date of Service June 30, 2021 Assessment & Plan (1) Lumbar disc herniation with radiculopathy: Plan: This case has been reviewed with Dr. Stanley. Patient has a massive disc herniation at L3-4 with associated motor weakness LEFT lower extremity which is consistent with his pain. He is unable to manage this at home. We will admit the patient for pain control. We will Plan on moving forward with posterior lumbar decompression and instrumented fusion with possible interbody cage at the L3-4 level tomorrow July 01. We will consult anesthesia and [facility] physician group hospitalist service preoperatively. Make n.p.o. after midnight. DVT prophylaxis is in the form of teds and SCDs. History of Present Illness Chief Complaint: Left greater than right lower extremity pain and associated weakness Primary Care Provider: Gibran Mancuso III, YSABEL This is a very pleasant 81-year-old gentleman who presents to the emergency room for evaluation due to left greater than right lower extremity pain with associated weakness. Patient was scheduled for an L3-[address] Stanley last week June 23 but due to Covid circumstances and bed availability this was canceled. He has been trying to manage at home with the pain for the past week. He is now requiring the assistance of a cane for ambulation. His left knee is giving out/buckling on him when he ambulates. It is quite challenging for him to find any comfortable position. Denies bowel or bladder changes or perineum numbness. He has been taking Tylenol at home due to his narcotic sensitivities but states this is not controlling his pain. He is also recently been on a steroid pack orally which helped very briefly. Pain is left lower extremity greater than right. It involves the anterior thigh and calf. Also notes right groin pain. Allergies Allergy/AdvReac Type Severity Reaction Status Date / Time codeine Allergy Mild ITCHING Verified 06/30/21 09:40 misoprostol AdvReac Mild Diarrhea Verified 06/30/21 09:40 Home Medications Medication Instructions Recorded Confirmed Type multivitamin (Daily-Robinson) 1 tab PO QAM #30 tab 05/07/19 06/30/21 Rx diphenhydramine 25 1 tab PO HS PRN 09/28/19 06/30/21 History mg-acetaminophen 500 mg tablet (Tylenol PM Extra Strength) nystatin-triamcinolone 100,000 1 appln TOP TID PRN #60 gm 12/11/19 06/30/21 Rx unit/gram-0.1 % topical ointment cholecalciferol (vitamin D3) 125 125 mcg PO QAM 03/25/20 06/30/21 History mcg (5,000 unit) capsule ferrous sulfate 325 mg (65 mg 325 mg PO QAM 03/25/20 06/30/21 History iron) tablet finasteride 5 mg tablet 5 mg PO QAM #90 tab 06/27/20 06/30/21 Rx trazodone 100 mg tablet 100 mg PO DAILY #90 tab 02/06/21 06/30/21 Rx montelukast 10 mg tablet 10 mg PO QPM #90 tab 02/24/21 06/30/21 Rx (Singulair) gabapentin 300 mg capsule 300 mg PO BID #180 cap 02/27/21 06/30/21 Rx fluticasone propionate 50 1 spray INTRANASAL DAILY #15.8 ml 03/10/21 06/30/21 Rx mcg/actuation nasal spray,suspension (Allergy Relief (fluticasone)) cholestyramine (with sugar) 4 gram 4 g PO BID #378 gm 03/12/21 06/30/21 Rx oral powder esomeprazole magnesium 40 mg 40 mg PO DAILY #90 cap 03/21/21 06/30/21 Rx capsule,delayed release folic acid 1 mg tablet 6 mg PO QAM #540 tab 05/21/21 06/30/21 Rx baclofen 10 mg tablet 10 mg PO TID PRN #90 tab 05/22/21 06/30/21 Rx lovastatin 40 mg tablet 40 mg PO DAILY #90 tab 05/30/21 06/30/21 Rx Past Med/Surg History Medical History (Updated 07/01/21 @ 06:12 by Jordan Polanco MD) BPH (benign prostatic hyperplasia) Chronic gastroesophageal reflux disease Usually at night - well controlled with Nexium Degenerative disc disease Low back pain with radiation to LE and weakness 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 Bebeto Stanley- Open R SI joint fusion, placement of 25 mm bony allograft filled with infuse within the R SI joint, placement of 2 globus percutaneous SI joint screws both GONZÁLES-coated and filled with infuse History of arthroscopy of left shoulder History of cataract extraction with lens replacement RT/LEFT History of colonoscopy History of elbow surgery RT History of esophagogastroduodenoscopy (EGD) History of hemorrhoidectomy History of repair of rotator cuff RT/LEFT History of tooth extraction History of total hip arthroplasty RT History of total knee replacement RT/LEFT History of vasectomy History of vitrectomy LEFT Family History Unknown Diabetes High cholesterol Grandmother (Maternal) Diabetes Family history of diabetes mellitus Grandmother (Paternal) Diabetes Family history of diabetes mellitus Father Heart disease Cardiac disorder Myocardial infarction Mother Cancer Other No family history of adverse response to anesthesia Denies family history of Ovarian cancer Prostate cancer Breast cancer Colorectal cancer Social History Smoking Status: Former smoker Smoking End Date: 25-30 years ago; Second Hand Exposure: No; Do You Dip or Chew Tobacco: No (quit 25-30 years ago); Hx Alcohol Use: Yes Alcohol type: wine Hx Substance Use: No Preferred Language: Vietnamese Communication Ability: Effective Visual Impairment: No Limitations Hearing Ability: Use of Hearing Aid Supervisor [employer]um [employer] Required: No Beliefs That Will Affect Care: None marital status: Current Living Situation: Spouse current occupational status: retired Other Information That Helps Us Care for You: No Feels Safe at Home: Yes Safety Concerns: Feels Safe At This Time Childhood Exposure to Second-Hand Smoke: Yes Dental Care, Regularly: Yes Physical Activity Frequency: Daily Seatbelt Use: always Sunscreen Use: No Assistive Devices: Cane, Denture - Upper, Denture - Lower and Glasses Assistive Devices Comment: glasses for reading, upper and lower partials, hearing aids (not here) Review of Systems Review of Systems: All systems reviewed & are unremarkable except as noted in HPI & below Physical Exam Physical Exam: I evaluated the patient in B 10 in the emergency room. He is obviously uncomfortable. He is seen in conjunction with his . Alert and oriented x3 Cooperative with exam Constitutional: + acute distress Eyes: normal visual funk by confrontation ENMT: Ears: + hearing impairment Neck: normal visual inspection Respiratory: normal respiratory effort Cardiovascular: Extremities: normal capillary refill Right calf edema greater than left. Patient states this is unchanged Gastrointestinal (Abdomen): Inspection/Auscultation: abdomen normal to inspection Musculoskeletal: Patient has a positive tension sign on the left. Negative contralateral straight leg raise. He has a 4/5 left quadricep and hamstring. Strength is 5/5 right lower extremity. Right calf is larger in diameter than left.. Calves are soft nontender bilaterally to palpation. Skin: no rashes, warm and dry Neurologic: normal touch/pain/proprioception Psychiatric: A+Ox3, euthymic affect Orientation: alert and oriented x 3 Eye Contact: good eye contact Affect: euthymic affect Results & Data Results & Data ([facility]) Vital Signs (Past 12 Hours) Vital Signs Temp Pulse Pulse Resp BP BP Pulse Ox 06/30/21 09:30 76 14 132/78 98 06/30/21 08:38 36.3 C L 89 16 128/76 95 Diagnostic Findings [facility], [id number] Magnetic Resonance Report Patient: TAN POZO V JRAdmit Date: 05/28/21#: [id number]: [address] DRAcct ID:[id number]: [facility]: [facility] Zip: [place], [place] [address]Ucc: [id number]: [id number]: MRoom/Bed:Att Phy: Cooper Dickeyagnosis: SACROLITISPri Phy: Gibran Mancuso, III, CRNPService Date: 05/28/21Fa Phy:Interpreting Phy: Erin Murdock DOAdmit Phy: Ordering Phy: Cooper Dickey PA-C cc: ~ MR lumbar spine wo con CLINICAL HISTORY: Sacroiliitis TECHNIQUE: Sagittal and axial T1, T2 and STIR images were obtained. COMPARISON STUDY: June 18, 2015 OBSERVATIONS: Fitness Worker images shows bilateral renal cysts, largest is seen within inferior pole of the left kidney measuring 2.8 cm in size. The vertebral bodies and posterior elements appear intact. There is no abnormal bony signal present to suggest a marrow replacement process. Lumbar lordosis is slightly decreased which is similar to prior study. Vertebral body heights are maintained. Redemonstration of multilevel intervertebral disc space narrowing with disc desiccation and posterior osteophytes. Mild Modic 1 changes are seen surrounding L4-L5 level. L1-2: No disc protrusions or extrusions. No evidence of spinal canal or neural foraminal compromise. L2-3: Mild diffuse bulge of the disc is seen causing flattening of thecal sac. Hypertrophic changes of facet joints. Bilateral neuroforamina are patent. L3-4: Diffuse bulge of the disc is seen causing flattening of thecal sac. Findings are stable since prior. Mild narrowing of the right neuroforamina. Left neuroforamina is patent. There is interval development of 1.5 x 0.9 cm extra-axial lesion showing isointense T1 and slightly hyperintense T2 signal (to when compared to the surrounding muscles) within right lateral recess at the level of L3 (6/11). L4-5: Diffuse bulge of the disc is seen causing flattening of thecal sac. Hypertrophic changes of facet joints. Mild stenosis of bilateral neuroforamina is seen at this level. L5-S1: Mild central protrusion of the disc is seen causing minimal distortion of the thecal sac which is stable since prior and not associated with central canal narrowing. Mild stenosis of bilateral neuroforamina. The conus medullaris and cauda equina appear normal. IMPRESSION: Interval development of 1.5 x 0.9 cm extra-axial mass lesion within right lateral recess at the level of L3. Suboptimal study due to lack of IV contrast. Further evaluation with contrast-enhanced MRI of the lumbar spine is recommended. Report will be sent to ordering physician office. Bilateral renal cysts. Multilevel degenerative changes as detailed above. ACT 112: Negative or not required by law. The above report was generated using voice recognition software. It may contain grammatical, syntax or spelling errors. Electronically signed by: Erin Murdock DO 05/28/2021 5:18 PM Dictated: 05/28/211658Transcribed: 05/28/211658
[2021-06-30 10:04] LABS: Bilirubin,Total 0.5 mg/dl (0.2-1); Globulin 3.2 gm/dl (2.5-4.0); Total Protein 6.4 gm/dl (6.4-8.2)
[2021-06-30] MEDS ORDERED: BACLOFEN 10 MG TAB PO PRN (13:50)
[2021-06-30] MEDS ORDERED: NYSTATIN/TRIAMCIN OINT 15 GM TUBE EXT PRN (13:50)
[2021-06-30] MEDS ORDERED: diazePAM 5 MG TABLET PO SCH (14:00)
--- NOTE | 2021-06-30 14:32 | Electrocardiogram Report ---
Test Reason : Blood Pressure : / mmHG Vent. Rate : 068 BPM Atrial Rate : 068 BPM P-R Int : 204 ms QRS Dur : 090 ms QT Int : 410 ms P-R-T Axes : 073 059 065 degrees QTc Int : 435 ms Sinus rhythm with sinus arrhythmia with occasional Premature ventricular complexes Otherwise normal ECG When compared with ECG of 16-FEB-2020 14:16, Premature ventricular complexes are now Present QRS axis Shifted left Minimal criteria for Inferior infarct are no longer Present Confirmed by Brady Phoenix ([id number]) on 06/30/2021 2:31:22 PM Referred By: REFERRED SELF Confirmed By:Brady Phoenix
[2021-06-30] MEDS: LACTATED RINGER'S 1,000 ML IV SCH (15:52)
[2021-06-30] MEDS: dexAMETHasone 8 MG in SYRINGE 0 ML IV SCH (17:20)
--- NOTE | 2021-06-30 17:49 | Hospitalist Consultation ---
Date of Consultation June 30, 2021 Assessment & Plan (1) Lumbar disc herniation with radiculopathy: Patient is medically optimized for surgery at this time. EKG reviewed. No requirement for CXR. Revised cardiac risk score 0, 3.9% 30-day risk of NV, or cardiac arrest. Surgery, pain and VTE management per ortho spine. (2) Insomnia: Patient takes Tylenol PM every night. Recommend chronically to try to wean himself off this. Fot now will continue half his usual diphenhydramine dose with 25mg PO HS. Continue Trazodone 100mg PO HS (3) Raynauds phenomenon: Noted history of this. On no specific medications. (4) Hypercholesterolemia: Continue lovastatin 40mg PO daily (5) Fibromyalgia: Continue gabapentin 300mg PO BID (6) BPH (benign prostatic hyperplasia): Continue finasteride 5mg PO daily History of Present Illness Reason for Consultation: Pre-op evaluation Requesting Physician: Agnes Hall PA-C Attending Physician: Bebeto Stanley DO History of Present Illness Darius Brar is a 81 year old male who presents to the ER due to intractable lumbar radiculopathy. Patient is admitted under orthopedics for posterior lumbar decompression tomorrow. Medicine consulted for pre-operative clearance. He was notably cleared for SI joint fusion by his PCP in December and did well following this operation. No anesthetic complications were noted post operatively. Patient reports much worse symptoms of lumbar radiculopathy over the last 3 weeks. No history of NV or stroke. Walking severely limited by lower back pain but no chest pains or shortness of breath on walking. Allergies Allergy/AdvReac Type Severity Reaction Status Date / Time codeine Allergy Mild ITCHING Verified 06/30/21 09:40 misoprostol AdvReac Mild Diarrhea Verified 06/30/21 09:40 Home Medications Medication Instructions Recorded Confirmed Type multivitamin (Daily-Robinson) 1 tab PO QAM #30 tab 05/07/19 06/30/21 Rx diphenhydramine 25 1 tab PO HS PRN 09/28/19 06/30/21 History mg-acetaminophen 500 mg tablet (Tylenol PM Extra Strength) nystatin-triamcinolone 100,000 1 appln TOP TID PRN #60 gm 12/11/19 06/30/21 Rx unit/gram-0.1 % topical ointment cholecalciferol (vitamin D3) 125 125 mcg PO QAM 03/25/20 06/30/21 History mcg (5,000 unit) capsule ferrous sulfate 325 mg (65 mg 325 mg PO QAM 03/25/20 06/30/21 History iron) tablet finasteride 5 mg tablet 5 mg PO QAM #90 tab 06/27/20 06/30/21 Rx trazodone 100 mg tablet 100 mg PO DAILY #90 tab 02/06/21 06/30/21 Rx montelukast 10 mg tablet 10 mg PO QPM #90 tab 02/24/21 06/30/21 Rx (Singulair) gabapentin 300 mg capsule 300 mg PO BID #180 cap 02/27/21 06/30/21 Rx fluticasone propionate 50 1 spray INTRANASAL DAILY #15.8 ml 03/10/21 06/30/21 Rx mcg/actuation nasal spray,suspension (Allergy Relief (fluticasone)) cholestyramine (with sugar) 4 gram 4 g PO BID #378 gm 03/12/21 06/30/21 Rx oral powder esomeprazole magnesium 40 mg 40 mg PO DAILY #90 cap 03/21/21 06/30/21 Rx capsule,delayed release folic acid 1 mg tablet 6 mg PO QAM #540 tab 05/21/21 06/30/21 Rx baclofen 10 mg tablet 10 mg PO TID PRN #90 tab 05/22/21 06/30/21 Rx lovastatin 40 mg tablet 40 mg PO DAILY #90 tab 05/30/21 06/30/21 Rx Patient History Medical History (Updated 07/01/21 @ 06:12 by Jordan Polanco MD) BPH (benign prostatic hyperplasia) Chronic gastroesophageal reflux disease Usually at night - well controlled with Nexium Degenerative disc disease Low back pain with radiation to LE and weakness 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 Bebeto Stanley- Open R SI joint fusion, placement of 25 mm bony allograft filled with infuse within the R SI joint, placement of 2 globus percutaneous SI joint screws both GONZÁLES-coated and filled with infuse History of arthroscopy of left shoulder History of cataract extraction with lens replacement RT/LEFT History of colonoscopy History of elbow surgery RT History of esophagogastroduodenoscopy (EGD) History of hemorrhoidectomy History of repair of rotator cuff RT/LEFT History of tooth extraction History of total hip arthroplasty RT History of total knee replacement RT/LEFT History of vasectomy History of vitrectomy LEFT Family History Unknown Diabetes High cholesterol Grandmother (Maternal) Diabetes Family history of diabetes mellitus Grandmother (Paternal) Diabetes Family history of diabetes mellitus Father Heart disease Cardiac disorder Myocardial infarction Mother Cancer Other No family history of adverse response to anesthesia Denies family history of Ovarian cancer Prostate cancer Breast cancer Colorectal cancer Social History Smoking Status: Former smoker Smoking End Date: 25-30 years ago; Second Hand Exposure: No; Do You Dip or Chew Tobacco: No (quit 25-30 years ago); Hx Alcohol Use: Yes Alcohol type: wine Hx Substance Use: No Preferred Language: Romanian Communication Ability: Effective Visual Impairment: No Limitations Hearing Ability: Use of Hearing Aid Cosmetic Account Coordinator Required: No Beliefs That Will Affect Care: None marital status: Current Living Situation: Spouse current occupational status: retired Other Information That Helps Us Care for You: No Feels Safe at Home: Yes Safety Concerns: Feels Safe At This Time Childhood Exposure to Second-Hand Smoke: Yes Dental Care, Regularly: Yes Physical Activity Frequency: Daily Seatbelt Use: always Sunscreen Use: No Assistive Devices: Cane, Denture - Upper, Denture - Lower and Glasses Assistive Devices Comment: glasses for reading, upper and lower partials, hearing aids (not here) Review of Systems Review of Systems: All systems reviewed & are unremarkable except as noted in HPI & below Physical Exam Constitutional: WD/WN, vitals as above no acute distress Eyes: PERRL, conjunctivae normal, anicteric sclerae ENMT: external ear and nose normal, oropharynx normal Respiratory: normal respiratory effort, lungs clear to auscultation Cardiovascular: RRR, no murmur, no edema Gastrointestinal (Abdomen): normal bowel sounds, soft, nontender, no hepatosplenomegaly Musculoskeletal: no cyanosis or clubbing, extremities motor strength 5/5 (limited exam on left side due to pain) Skin: no rashes, warm and dry Neurologic: moves all extremities and awake; not confused Psychiatric: A+Ox3, euthymic affect Results & Data Results & Data ([facility]) Vital Signs (Past 12 Hours) Vital Signs Temp Pulse Pulse Resp BP BP Pulse Ox 06/30/21 16:28 77 16 140/75 98 06/30/21 15:00 78 16 155/72 H 98 06/30/21 14:40 78 17 06/30/21 14:30 71 11 L 06/30/21 14:20 67 22 06/30/21 14:10 70 12 06/30/21 14:00 66 13 06/30/21 13:50 71 13 06/30/21 13:45 75 16 129/73 98 06/30/21 13:40 68 13 06/30/21 13:30 71 13 06/30/21 13:20 65 13 06/30/21 13:10 65 14 06/30/21 13:08 68 18 129/76 96 06/30/21 13:03 65 18 129/76 96 06/30/21 12:00 62 13 06/30/21 11:50 62 13 06/30/21 11:40 60 13 06/30/21 11:30 61 12 06/30/21 11:20 61 13 06/30/21 11:10 61 12 06/30/21 11:00 60 14 06/30/21 10:50 60 13 140/74 98 06/30/21 10:40 59 L 15 06/30/21 10:30 63 13 06/30/21 10:20 61 18 06/30/21 10:10 60 14 06/30/21 10:00 61 14 132/70 06/30/21 09:50 61 17 06/30/21 09:40 65 15 06/30/21 09:34 70 17 06/30/21 09:30 76 14 132/78 98 06/30/21 08:38 36.3 C L 89 16 128/76 95 ECG Indication: other (pre-op) Rate (beats per minute): 68 Rhythm: sinus with SA Findings: + PVC Comparison ECG Date: from (February 16, 2020) Change: no significant change PG Care Time/CCT Total # of Minutes Spent Total Time Spent with Patient: Total time spent is greater than 50% in coordination of care (as documented) at patient's floor/unit and/or counseling patient: Coding Level of Care Code 09723 Office/OBS Consult Lvl 4 Diagnoses Lumbar disc herniation with radiculopathy M51.16 Raynauds phenomenon I73.00 Raynaud?s-associated gangrene presence: without gangrene Hypercholesterolemia E78.00 Fibromyalgia M79.7 Insomnia G47.00 BPH (benign prostatic hyperplasia) N40.0 (1) Raynauds phenomenon Raynaud?s-associated gangrene presence: without gangrene Qualified Code(s): I73.00 - Raynaud's syndrome without gangrene
[2021-06-30] MEDS: GABAPENTIN 300 MG CAP PO SCH (20:36)
[2021-06-30] MEDS: MONTELUKAST SODIUM 10 MG TABLET PO SCH (20:36)
[2021-06-30] MEDS: CHOLESTYRAMINE LIGHT 4 GM PKT PO SCH (20:38)
[2021-06-30] MEDS: traMADol HCL 50 MG TABLET PO PRN (22:59)
[2021-06-30] MEDS: diphenhydrAMINE Capsule 25 MG CAP PO SCH (23:00)
[2021-06-30] MEDS: traZODone HCL 100 MG TAB PO SCH (23:00)
[2021-07-01] MEDS: dexAMETHasone 8 MG in SYRINGE 0 ML IV SCH ×2 (00:36→07:39)
[2021-07-01] MEDS: LACTATED RINGER'S 1,000 ML IV SCH ×2 (04:27→18:10)
[2021-07-01] MEDS ORDERED: ceFAZolin 2000MG 2,000 MG/15 ML SYR IV SCH (06:00)
--- NOTE | 2021-07-01 08:34 | History & Physical Bridge Note ---
Date of Service July 01, 2021 History & Physical Bridge Note I have examined the patient, reviewed the History & Physical and in the interval since the performance of the History & Physical I have noted the following changes of clinical significance: no changes noted L3-L4 decompression fusion
--- NOTE | 2021-07-01 08:50 | Anesthesiology Consultation ---
Date of Service July 01, 2021 Assessment & Plan (1) Encounter for pre-operative examination: Chart Review Chart Review: Acceptable Risk for Surgery and Patient NOT seen in Pre Admission Testing Consults Requested none History Surgery Operation Date: 07/01/21 09:15 Proposed Procedures p L3-L4 Decompression Fusion with Instrumentation - Bebeto Stanley, Height/Weight Height: 5 ft 10 in Weight: 95.9 kg Allergies Allergy/AdvReac Type Severity Reaction Status Date / Time codeine Allergy Mild ITCHING Verified 06/30/21 09:40 misoprostol AdvReac Mild Diarrhea Verified 06/30/21 09:40 Medications Home Medications Medication Instructions Recorded Confirmed Last Taken multivitamin (Daily-Robinson) 1 tab PO QAM #30 tab 05/07/19 06/30/21 06/30/21 diphenhydramine 25 1 tab PO HS PRN 09/28/19 06/30/21 01/19/21 22:00 mg-acetaminophen 500 mg tablet (Tylenol PM Extra Strength) nystatin-triamcinolone 100,000 1 appln TOP TID PRN #60 gm 12/11/19 06/30/21 01/19/21 22:00 unit/gram-0.1 % topical ointment cholecalciferol (vitamin D3) 125 125 mcg PO QAM 03/25/20 06/30/21 06/30/21 mcg (5,000 unit) capsule ferrous sulfate 325 mg (65 mg 325 mg PO QAM 03/25/20 06/30/21 06/30/21 iron) tablet finasteride 5 mg tablet 5 mg PO QAM #90 tab 06/27/20 06/30/21 06/30/21 trazodone 100 mg tablet 100 mg PO DAILY #90 tab 02/06/21 06/30/21 06/30/21 montelukast 10 mg tablet 10 mg PO QPM #90 tab 02/24/21 06/30/21 06/29/21 (Singulair) gabapentin 300 mg capsule 300 mg PO BID #180 cap 02/27/21 06/30/21 06/30/21 fluticasone propionate 50 1 spray INTRANASAL DAILY #15.8 ml 03/10/21 06/30/21 06/30/21 mcg/actuation nasal spray,suspension (Allergy Relief (fluticasone)) cholestyramine (with sugar) 4 gram 4 g PO BID #378 gm 03/12/21 06/30/21 06/30/21 oral powder esomeprazole magnesium 40 mg 40 mg PO DAILY #90 cap 03/21/21 06/30/21 06/30/21 capsule,delayed release folic acid 1 mg tablet 6 mg PO QAM #540 tab 05/21/21 06/30/21 06/30/21 baclofen 10 mg tablet 10 mg PO TID PRN #90 tab 05/22/21 06/30/21 Unknown lovastatin 40 mg tablet 40 mg PO DAILY #90 tab 05/30/21 06/30/21 06/30/21 Active Medications Generic Name Dose Route Start Last Admin Trade Name Freq PRN Reason Stop Dose Admin Cholestyramine Resin 4 gm 06/30/21 22:00 06/30/21 20:38 Cholestyramine Light 4 Gm Pkt PO 07/30/21 21:59 4 gm BID@1000,2200 LUIS FELIPE Administration Diphenhydramine HCl 25 mg 06/30/21 21:00 06/30/21 23:00 Diphenhydramine Capsule 25 Mg Cap PO 07/30/21 20:59 25 mg HS LUIS FELIPE Administration Gabapentin 300 mg 06/30/21 21:00 06/30/21 20:36 Gabapentin 300 Mg Cap PO 07/30/21 20:59 300 mg BID LUIS FELIPE Administration Dexamethasone 8 mg/ Syringe 2 mls @ 1 mls/min 06/30/21 17:00 07/01/21 07:39 IV 07/01/21 09:01 1 mls/min Q8H LUIS FELIPE Administration Lactated Ringer's 1,000 mls @ 75 mls/hr 06/30/21 13:51 07/01/21 04:27 Lr IV 07/30/21 13:50 75 mls/hr .[id number] LUIS FELIPE Administration Lorazepam 0.5 mg 06/30/21 09:44 07/01/21 01:42 Lorazepam 0.5 Mg Tab PO 07/30/21 09:43 0.5 mg Q8H PRN Administration sedation/anxiety Montelukast Sodium 10 mg 06/30/21 21:00 06/30/21 20:36 Montelukast Sodium 10 Mg Tablet PO 07/30/21 20:59 10 mg QPM LUIS FELIPE Administration Tramadol HCl 50 - 100 mg 06/30/21 09:44 06/30/21 22:59 Tramadol Hcl 50 Mg Tablet PO 07/30/21 09:43 50 mg Q4H PRN Administration Moderate-Severe pain & Pre PT Trazodone HCl 100 mg 06/30/21 21:00 06/30/21 23:00 Trazodone Hcl 100 Mg Tab PO 07/30/21 20:59 100 mg HS LUIS FELIPE Administration NPO Date Last Intake of Fluids: 06/30/21 Time Last Intake of Fluids: 23:00 Last Intake of Fluids Comment: sip of water 0700 w/med Date Last Intake of Solids: 06/30/21 Time Last Intake of Solids: 19:00 Past Medical History Medical History BPH (benign prostatic hyperplasia) Chronic gastroesophageal reflux disease Usually at night - well controlled with Nexium Degenerative disc disease Low back pain with radiation to LE and weakness 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) s/p long car ride - on AC x several months than d/c No issues since that time Hyperlipidemia 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 Osteoarthritis Venous insufficiency (chronic) (peripheral) Past Family History Family History Unknown Diabetes High cholesterol Grandmother (Maternal) Diabetes Family history of diabetes mellitus Grandmother (Paternal) Diabetes Family history of diabetes mellitus Father Heart disease Cardiac disorder Myocardial infarction Mother Cancer Other No family history of adverse response to anesthesia Denies family history of Ovarian cancer Prostate cancer Breast cancer Colorectal cancer Past Surgical History Surgical History H/O surgical fusion joint 01/20/21 Dr. Bebeto Stanley- Open R SI joint fusion, placement of 25 mm bony allograft filled with infuse within the R SI joint, placement of 2 globus percutaneous SI joint screws both GONZÁLES-coated and filled with infuse History of arthroscopy of left shoulder History of cataract extraction with lens replacement RT/LEFT History of colonoscopy History of elbow surgery RT History of esophagogastroduodenoscopy (EGD) History of hemorrhoidectomy History of repair of rotator cuff RT/LEFT History of tooth extraction History of total hip arthroplasty RT History of total knee replacement RT/LEFT History of vasectomy History of vitrectomy LEFT Social History Smoking Status: Former smoker tobacco type: cigarettes and smokeless tobacco Do You Dip or Chew Tobacco: No (quit 25-30 years ago) Smoking End Date: 25-30 years ago Hx Alcohol Use: Yes Alcohol type: wine alcohol intake frequency: holidays/special occasions only Hx Substance Use: No substance use type: does not use Physical Exam Vital Signs Last Vital Signs Temp 36.9 C 07/01/21 08:34 Pulse 86 07/01/21 08:34 Resp 18 07/01/21 08:34 BP 128/70 07/01/21 08:34 Pulse Ox 95 07/01/21 08:34 Testing Laboratory Results 06/30/21 09:10 06/30/21 09:10 PT 10.2 Seconds (9.0-12.0) 06/30/21 09:10 INR 1.0 (0.9-1.1) 06/30/21 09:10 Blood Type A Positive 06/30/21 10:12 Antibody Screen NEGATIVE 06/30/21 10:12 Electrocardiogram Date: 06/30/21 DICTATED BY: Brady Phoenix MD Test Reason : Blood Pressure : / mmHG Vent. Rate : 068 BPM Atrial Rate : 068 BPM P-R Int : 204 ms QRS Dur : 090 ms QT Int : 410 ms P-R-T Axes : 073 059 065 degrees QTc Int : 435 ms Sinus rhythm with sinus arrhythmia with occasional Premature ventricular complexes Otherwise normal ECG When compared with ECG of 16-FEB-2020 14:16, Premature ventricular complexes are now Present QRS axis Shifted left Minimal criteria for Inferior infarct are no longer Present Confirmed by Brady Phoenix ([id number]) on 06/30/2021 2:31:22 PM Referred By: REFERRED SELF Confirmed By:Brady Phoenix Signed By:06/30/21 1431 Dictated: 06/30/21 0908
[2021-07-01] MEDS ORDERED: EPINEPHrine INJ 1 MG/ML AMP ONE (08:52)
[2021-07-01] MEDS ORDERED: BUPIVACAINE 0.5 % 5 MG/1 ML MPF 30ML VIAL ONE (08:52)
[2021-07-01] MEDS ORDERED: PHENYLEPHRINE 100MCG/ML 5ML SYR IV PRN (08:53)
[2021-07-01] MEDS ORDERED: LABETALOL HCL IV 5 MG/ML 20ML IV PRN (08:53)
[2021-07-01] MEDS ORDERED: HYDROmorphone INJ 1 MG/ML SYRINGE IV PRN (08:53)
[2021-07-01] MEDS ORDERED: ONDANSETRON INJ 2 MG/ML 2 ML VIAL IV PRN ×2 (08:53→12:20)
[2021-07-01] MEDS ORDERED: ePHEDrine sulfate 50 MG/ML AMP IV PRN (08:53)
[2021-07-01] MEDS ORDERED: ATROPINE SULFATE 0.1 MG/ML 10ML SYR IV PRN (08:53)
[2021-07-01] MEDS ORDERED: ROCURONIUM BROMIDE 10 MG/ML 5 ML VIAL IV ONE ×2 (08:59→09:49)
[2021-07-01] MEDS ORDERED: fentaNYL citrate 100 MCG/2 ML VIAL ONE ×2 (08:59)
[2021-07-01] MEDS ORDERED: ONDANSETRON INJ 2 MG/ML 2 ML VIAL ONE (08:59)
[2021-07-01] MEDS ORDERED: PROPOFOL IV EMULSION 10 MG/ML 20 ML VIAL IV ONE (08:59)
[2021-07-01] MEDS ORDERED: DEXAMETHASONE SOD INJ 4 MG/ML VIAL ONE ×2 (08:59→09:47)
[2021-07-01] MEDS: CHOLESTYRAMINE LIGHT 4 GM PKT PO SCH ×2 (09:00→21:39)
[2021-07-01] MEDS ORDERED: traZODone HCL 100 MG TAB PO SCH (09:00)
[2021-07-01] MEDS: GABAPENTIN 300 MG CAP PO SCH ×2 (09:00→21:37)
[2021-07-01] MEDS ORDERED: NEOSTIGMINE METHYLSULFATE 1 MG/ML 10ML VIAL ONE (10:54)
[2021-07-01] MEDS ORDERED: GLYCOPYRROLATE 0.2 MG/ML VIAL ONE (10:54)
--- NOTE | 2021-07-01 11:09 | Operative Report ---
Post Operative Report Pre & Post Diagnosis Operation Date: 07/01/21 09:15 Pre-Op Diagnosis: Lumbar Disc Herniation with Radiculopathy Post-Op Diagnosis: Lumbar Disc Herniation with Radiculopathy I identified the patient and participated in the time-out.: Yes Procedure Operation Date: 07/01/21 09:15 Actual Procedures #1 lumbar decompression bilateral medial facetectomies and foraminotomies L2-3 and L3-L4. #2 posterior spinal fusion L3-L4. #3 placement posterior instrumentation L3-L4. #4 interbody fusion L3-L4. #5 placement peek cage 13 x 26 mm at L3-L4. #6 placement of locally harvested morselized autograft in the posterior gutters. #7 placement infuse collagen sponge, master graft in the posterior gutters and I factor interbody space. Surgeon Bebeto Stanley DO Consulting Software Engineer Agnes Nunez Estimated Blood Loss 50 Findings Consistent with Post-Op Diagnosis Specimens None Indications This is a 81-year-old male presents with marked chronic status and significant leg weakness history of liver mass procedure. Description of Procedure Patient was met with identified informed consent obtained. Patient was then taken to the operative suite underwent a patient placed in the prone position the Edilson table top of Preston frame. All bony prominences well-padded eyes inspected to ensure no external pressure placed upon the. This point the lumbar spine was prepped and draped in a sterile fashion. Sharp dissection with the assistance of Bovie cautery performed down to and exposing the lamina and transverse processes of L3 and L4. From a caudal cephalad fashion complete laminectomy of L3 partial laminectomy of L2 was performed getting bilateral medial facetectomies and foraminotomies addressing all lateral recess stenosis as well as evidence of a massive disc herniation on the right extending out into the neural foramen. After complete decompression pedicle screws were placed in L4 and L5 bilaterally with assistance of fluoroscopy and appropriate sized seng placed. By way of a transforaminal approach on the right a complete discectomy of L3-L4 was performed and the endplates curetted to subcortical bleeding bone. A 13 x 26 mm peek cage filled with I factor tapped in position. The rods then locked into final position bilaterally. The transverse processes of L3 and L4 burred to subcortical bleeding bone. Infuse collagen sponge, master graft was placed in the posterior gutters. 15 round MIKEL drain inserted. The incision was then closed with 1 Vicryl to fascia 2-0 Vicryl subcutaneously and 4 Monocryl for final skin closure. Steri-Strips dressings placed. Patient waken taken PACU stable condition. Please note spinal cord monitoring was utilized at the procedure no changes noted. Lastly Agnes Nunez was present at the entire procedure and all the patient positioning complex portions of the surgery and final skin closure. I attest to the content of the Intraoperative Record and any orders documented therein. Any exceptions are noted below.
[2021-07-01] MEDS ORDERED: FLOSEAL HEMOSTATIC MATRIX 10ML TOP ONE (11:10)
--- NOTE | 2021-07-01 11:22 | Fluoroscopy Report ---
[place] lumbar spine 2-3V CLINICAL HISTORY: L3-4 DECOMPRESSION/FUSION/INTERBODY COMPARISON STUDY: Lumbar spine MRI May 28, 2021. FLUOROSCOPY TIME: 17 seconds. FLUOROSCOPIC IMAGES: 2 FINDINGS: Exact localization is difficult given partial visualization of the spine. These images demo nstrate 1 level discectomy with posterior decompression and bilateral pedicle screws likely at L3-L4. IMPRESSION: Fluoroscopy provided during discectomy, posterior decompression and bilateral pedicle sc rew fusion, likely at L3-L4. ACT 112: Negative or not required by law. Electronically signed by: Damian Pool M.D. 07/01/2021 11:21 AM
[2021-07-01] MEDS: fentaNYL citrate 100 MCG/2 ML VIAL IV PRN ×3 (11:25→11:40)
--- NOTE | 2021-07-01 11:53 | Anesthesiology Progress Note ---
Date of Service July 01, 2021 Anesthesia Post Procedure Vital Signs Vital Signs: Temp Pulse Pulse Pulse Resp BP BP 07/01/21 11:40 84 14 108/69 07/01/21 11:30 90 12 115/64 07/01/21 11:20 36.2 C L 92 H 16 132/80 07/01/21 08:34 36.9 C 86 18 128/70 07/01/21 08:05 36.7 C 82 18 127/69 06/30/21 23:49 36.6 C 78 18 125/72 06/30/21 17:00 36.8 C 83 18 142/80 H 06/30/21 16:28 77 16 140/75 06/30/21 15:00 78 16 155/72 H 06/30/21 14:40 78 17 06/30/21 14:30 71 11 L 06/30/21 14:20 67 22 06/30/21 14:10 70 12 06/30/21 14:00 66 13 06/30/21 13:50 71 13 06/30/21 13:45 75 16 129/73 06/30/21 13:40 68 13 06/30/21 13:30 71 13 06/30/21 13:20 65 13 06/30/21 13:10 65 14 06/30/21 13:08 68 18 129/76 06/30/21 13:03 65 18 129/76 06/30/21 12:00 62 13 Pulse Ox 07/01/21 11:40 97 07/01/21 11:30 97 07/01/21 11:20 99 07/01/21 08:34 95 07/01/21 08:05 94 06/30/21 23:49 93 06/30/21 17:00 94 06/30/21 16:28 98 06/30/21 15:00 98 06/30/21 14:40 06/30/21 14:30 06/30/21 14:20 06/30/21 14:10 06/30/21 14:00 06/30/21 13:50 06/30/21 13:45 98 06/30/21 13:40 06/30/21 13:30 06/30/21 13:20 06/30/21 13:10 06/30/21 13:08 96 06/30/21 13:03 96 06/30/21 12:00 Pain Intensity Back: Pain Intensity: 2 Transfer of Care Handoff Completed per policy Notes Mental Status: alert / awake / arousable Patient Amnestic to Procedure: Yes Nausea / Vomiting: adequately controlled Pain: adequately controlled Airway Patency, RR, SpO2: stable & adequate BP & HR: stable & adequate Hydration State: stable & adequate Anesthetic Complications: no major complications apparent and Pt Satisfied with anesthetic care Notes: The patient is awake and comfortable.
[2021-07-01] MEDS ORDERED: ONDANSETRON 4 MG OD TAB PO PRN (12:20)
[2021-07-01] MEDS ORDERED: LORazepam 0.5 MG/1 ML VIAL IV PRN (12:20)
[2021-07-01] MEDS ORDERED: NALOXONE HCL 0.4 MG/1 ML VIAL/CARP IV PRN (12:20)
[2021-07-01] MEDS ORDERED: MAGNESIUM HYDROXIDE SUSP 30 ML UDC PO PRN (12:20)
[2021-07-01] MEDS ORDERED: LORazepam 0.5 MG TAB PO PRN (12:20)
[2021-07-01] MEDS ORDERED: ACETAMINOPHEN 1,000 MG/100 ML VIAL IV PRN (12:20)
[2021-07-01] MEDS ORDERED: FAMOTIDINE 20 MG TAB PO PRN (12:20)
[2021-07-01] MEDS ORDERED: DO NOT ADMINISTER PNEUMOCOCCAL VACCINE PRN (12:20)
[2021-07-01] MEDS ORDERED: ALUMINUM/MAGNESIUM SUSP 30 ML UDC PO PRN (12:20)
[2021-07-01] MEDS ORDERED: bisacodyL 10 MG SUPP PR PRN (12:20)
[2021-07-01] MEDS ORDERED: METOCLOPRAMIDE HCL INJ 5 MG/ML 2 ML VIAL IV PRN (12:20)
[2021-07-01] MEDS ORDERED: DO NOT ADMINISTER FLU VACCINE PRN (12:20)
[2021-07-01] MEDS ORDERED: hydrOXYzine HCl 25 MG TAB PO PRN (12:20)
[2021-07-01] MEDS ORDERED: ACETAMINOPHEN 500 MG TAB PO PRN (12:20)
[2021-07-01] MEDS ORDERED: PROMETHAZINE HCL 12.5 MG in SODIUM CHLORIDE 0.9% 50 ML IV PRN (12:20)
[2021-07-01] MEDS ORDERED: SOD PHOSPHATE/SOD BIPHOSPHATE ENEMA 132 ML BTL PR PRN (12:20)
[2021-07-01] MEDS ORDERED: diphenhydrAMINE Capsule 25 MG CAP PO PRN (12:20)
[2021-07-01] MEDS ORDERED: LACTATED RINGER'S 1,000 ML IV SCH (12:30)
--- NOTE | 2021-07-01 14:38 | Hospitalist Progress Note ---
Date of Service July 01, 2021 Assessment & Plan (1) Lumbar disc herniation with radiculopathy: Plan: POD#0 #1 lumbar decompression bilateral medial facetectomies and foraminotomies L2-3 and L3-L4. #2 posterior spinal fusion L3-L4. #3 placement posterior instrumentation L3-L4. #4 interbody fusion L3-L4. #5 placement peek cage 13 x 26 mm at L3-L4. #6 placement of locally harvested morselized autograft in the posterior gutters. #7 placement infuse collagen sponge, master graft in the posterior gutters and I factor interbody space. Surgery, pain and VTE management per ortho spine. Pain and VTE management by orthopedics (2) Insomnia: Plan: Patient takes Tylenol PM every night. Recommend chronically to try to wean himself off this. Fot now will continue half his usual diphenhydramine dose with 25mg PO HS. Continue Trazodone 100mg PO HS (3) Raynauds phenomenon: Plan: Noted history of this. On no specific medications. (4) Hypercholesterolemia: Plan: Continue lovastatin 40mg PO daily (5) Fibromyalgia: Plan: Continue gabapentin 300mg PO BID (6) BPH (benign prostatic hyperplasia): Plan: Continue finasteride 5mg PO daily Admission and Anticipated Discharge Date Admission Date: July 01, 2021 Subjective Patient doing well post operatively. No specific concerns or questions for me today. Review of Systems Review of Systems: All systems reviewed & are unremarkable except as noted in HPI & below Physical Exam Constitutional: WD/WN, vitals as above no acute distress Eyes: PERRL, conjunctivae normal, anicteric sclerae ENMT: external ear and nose normal, oropharynx normal Respiratory: normal respiratory effort, lungs clear to auscultation Cardiovascular: RRR, no murmur, no edema Gastrointestinal (Abdomen): normal bowel sounds, soft, nontender, no hepatosplenomegaly Musculoskeletal: no cyanosis or clubbing, extremities motor strength 5/5 (l imited exam on left side due to pain) Skin: no rashes, warm and dry Neurologic: moves all extremities and awake; not confused Psychiatric: A+Ox3, euthymic affect Results & Data Results & Data ([facility]) Vital Signs (Past 12 Hours) Vital Signs Temp Pulse Pulse Resp BP BP Pulse Ox 07/01/21 14:03 36.3 C L 88 17 113/64 93 07/01/21 13:07 36.2 C L 83 16 110/68 94 07/01/21 12:40 36.2 C L 85 18 110/65 96 07/01/21 12:00 78 13 102/63 96 07/01/21 11:50 36.2 C L 84 18 111/66 96 07/01/21 11:40 84 14 108/69 97 07/01/21 11:30 90 12 115/64 97 07/01/21 11:20 36.2 C L 92 H 16 132/80 99 07/01/21 08:34 36.9 C 86 18 128/70 95 07/01/21 08:05 36.7 C 82 18 127/69 94 PG Care Time/CCT Total # of Minutes Spent Total Time Spent with Patient: Total time spent is greater than 50% in coordination of care (as documented) at patient's floor/unit and/or counseling patient: Coding Level of Care Code 37603 Subseq Hosp Care Lvl 1 Diagnoses Lumbar disc herniation with radiculopathy M51.16 Insomnia G47.00 Raynauds phenomenon I73.00 Raynaud?s-associated gangrene presence: without gangrene Hypercholesterolemia E78.00 Fibromyalgia M79.7 BPH (benign prostatic hyperplasia) N40.0 (1) Raynauds phenomenon Raynaud?s-associated gangrene presence: without gangrene Qualified Code(s): I73.00 - Raynaud's syndrome without gangrene
[2021-07-01] MEDS: FERROUS SULFATE 325 MG TAB PO SCH (17:18)
[2021-07-01] MEDS: PANTOprazole 40 MG TAB PO SCH (17:20)
[2021-07-01] MEDS: FINASTERIDE 5 MG TAB PO SCH (17:21)
[2021-07-01] MEDS: FOLIC ACID 1 MG TAB PO SCH (17:24)
[2021-07-01] MEDS: LOVASTATIN 20 MG TAB PO SCH (17:25)
[2021-07-01] MEDS: ceFAZolin 2000MG 2,000 MG/15 ML SYR IV SCH (19:58)
[2021-07-01] MEDS: MONTELUKAST SODIUM 10 MG TABLET PO SCH (21:37)
[2021-07-01] MEDS: diphenhydrAMINE Capsule 25 MG CAP PO SCH (21:37)
[2021-07-01] MEDS: DOCUSATE SODIUM/SENNA 50/8.6MG TAB PO SCH (21:37)
[2021-07-01] MEDS: traZODone HCL 100 MG TAB PO SCH (21:37)
[2021-07-02] MEDS: ceFAZolin 2000MG 2,000 MG/15 ML SYR IV SCH (03:58)
[2021-07-02] MEDS: POLYETHYLENE (MIRALAX) 17 GM PACK PO SCH ×4 (06:05→22:54)
[2021-07-02] MEDS: LACTATED RINGER'S 1,000 ML IV SCH (06:22)
[2021-07-02 07:13] LABS: Basophils # (auto) 0.01 K/uL (0-0.2); Basophils % (auto) 0.1 %; Hematocrit (blood only) 39.4 % (42-52); Hemoglobin 13.2 g/dL (14.0-18.0); Immature Granulocytes # (auto) 0.05 K/uL (0.00-0.02); Immature Granulocytes % (auto) 0.3 %; Lymphocytes # (auto) 1.18 K/uL (1.2-3.4); Lymphocytes % (auto) 7.6 %; Mean Corpuscular Hemoglobin 31.6 pg (25-34); Mean Corpuscular Hgb Conc 33.5 g/dL (32-36); Mean Corpuscular Volume 94.3 fL (80-100); Mean Platelet Volume 9.8 fL (7.4-10.4); Monocytes # (auto) 1.28 K/uL (0.11-0.59); Monocytes % (auto) 8.3 %; Neutrophils # (auto) 12.94 K/uL (1.4-6.5); Neutrophils % (auto) 83.7 %; Platelet Count 193 K/uL (130-400); RDW Standard Deviation 48.3 fL (36.4-46.3); Red Blood Count 4.18 M/uL (4.7-6.1); White Blood Count 15.46 K/uL (4.8-10.8)
[2021-07-02 07:46] LABS: Calcium 8.7 mg/dl (8.5-10.1); Creatinine Clr Calc Pharmacy 90.4 ml/min; Est GFR (Non-African American) 86.3 ml/min; Potassium 4.2 mmol/L (3.5-5.1)
[2021-07-02 07:51] LABS: Echinocytes 1+
[2021-07-02] MEDS: dexAMETHasone 8 MG in SYRINGE 0 ML IV SCH (08:52)
[2021-07-02] MEDS: GABAPENTIN 300 MG CAP PO SCH ×2 (08:52→21:22)
[2021-07-02] MEDS: traMADol HCL 50 MG TABLET PO PRN ×2 (08:53→15:03)
[2021-07-02] MEDS: FINASTERIDE 5 MG TAB PO SCH (10:18)
[2021-07-02] MEDS: FERROUS SULFATE 325 MG TAB PO SCH (10:18)
[2021-07-02] MEDS: LOVASTATIN 20 MG TAB PO SCH (10:18)
[2021-07-02] MEDS: CHOLESTYRAMINE LIGHT 4 GM PKT PO SCH ×2 (10:18→22:53)
[2021-07-02] MEDS: FOLIC ACID 1 MG TAB PO SCH (10:18)
[2021-07-02] MEDS: PANTOprazole 40 MG TAB PO SCH (10:18)
--- NOTE | 2021-07-02 15:54 | Hospitalist Progress Note ---
Date of Service July 02, 2021 Assessment & Plan (1) Lumbar disc herniation with radiculopathy: Plan: POD#1 #1 lumbar decompression bilateral medial facetectomies and foraminotomies L2-3 and L3-L4. #2 posterior spinal fusion L3-L4. #3 placement posterior instrumentation L3-L4. #4 interbody fusion L3-L4. #5 placement peek cage 13 x 26 mm at L3-L4. #6 placement of locally harvested morselized autograft in the posterior gutters. #7 placement infuse collagen sponge, master graft in the posterior gutters and I factor interbody space. Surgery, pain and VTE management per ortho spine. (2) Insomnia: Plan: Patient takes Tylenol PM every night. Recommend chronically to try to wean himself off this. Fot now will continue half his usual diphenhydramine dose with 25mg PO HS. Continue Trazodone 100mg PO HS (3) Raynauds phenomenon: Plan: Noted history of this. On no specific medications. (4) Hypercholesterolemia: Plan: Continue lovastatin 40mg PO daily (5) Fibromyalgia: Plan: Continue gabapentin 300mg PO BID (6) BPH (benign prostatic hyperplasia): Plan: Continue finasteride 5mg PO daily Plan: Thank you for the consult. No change to his pre-operative medications required although did advise him to cut back and work towards eliminating Tyelenol PM which he takes OTC. He can follow up with his PCP regarding this. Medicine will sign off at this time. Admission and Anticipated Discharge Date Admission Date: July 01, 2021 Subjective Patient doing well post operatively. No specific concerns or questions for me today. Improved pain and strength in LLE. Review of Systems Review of Systems: All systems reviewed & are unremarkable except as noted in HPI & below Physical Exam Constitutional: WD/WN, vitals as above no acute distress Eyes: PERRL, conjunctivae normal, anicteric sclerae ENMT: external ear and nose normal, oropharynx normal Respiratory: normal respiratory effort, lungs clear to auscultation Cardiovascular: RRR, no murmur, no edema Gastrointestinal (Abdomen): normal bowel sounds, soft, nontender, no hepatosplenomegaly Skin: no rashes, warm and dry Neurologic: moves all extremities and awake; not confused Psychiatric: A+Ox3, euthymic affect Results & Data Results & Data ([facility]) Vital Signs (Past 12 Hours) Vital Signs Temp Pulse Resp BP Pulse Ox 07/02/21 07:19 35.9 C L 58 L 18 137/74 97 07/02/21 04:01 36.5 C 79 16 136/71 96 PG Care Time/CCT Total # of Minutes Spent Total Time Spent with Patient: Total time spent is greater than 50% in coordination of care (as documented) at patient's floor/unit and/or counseling patient: Coding Level of Care Code 29539 Subseq Hosp Care Lvl 1 Diagnoses Lumbar disc herniation with radiculopathy M51.16 Insomnia G47.00 Raynauds phenomenon I73.00 Raynaud?s-associated gangrene presence: without gangrene Hypercholesterolemia E78.00 Fibromyalgia M79.7 BPH (benign prostatic hyperplasia) N40.0 (1) Raynauds phenomenon Raynaud?s-associated gangrene presence: without gangrene Qualified Code(s): I73.00 - Raynaud's syndrome without gangrene
[2021-07-02] MEDS: diphenhydrAMINE Capsule 25 MG CAP PO SCH (21:22)
[2021-07-02] MEDS: DOCUSATE SODIUM/SENNA 50/8.6MG TAB PO SCH (21:22)
[2021-07-02] MEDS: MONTELUKAST SODIUM 10 MG TABLET PO SCH (21:23)
[2021-07-02] MEDS: traZODone HCL 100 MG TAB PO SCH (21:23)
[2021-07-03] MEDS: traMADol HCL 50 MG TABLET PO PRN (03:47)
[2021-07-03] MEDS: POLYETHYLENE (MIRALAX) 17 GM PACK PO SCH (06:29)
[2021-07-03] MEDS: FERROUS SULFATE 325 MG TAB PO SCH (08:24)
[2021-07-03] MEDS: LOVASTATIN 20 MG TAB PO SCH (08:24)
[2021-07-03] MEDS: GABAPENTIN 300 MG CAP PO SCH (08:24)
[2021-07-03] MEDS: FOLIC ACID 1 MG TAB PO SCH (08:24)
[2021-07-03] MEDS: PANTOprazole 40 MG TAB PO SCH (08:24)
[2021-07-03] MEDS: FINASTERIDE 5 MG TAB PO SCH (08:24)
[2021-07-03] MEDS: dexAMETHasone 8 MG in SYRINGE 0 ML IV SCH (08:25)
[2021-07-03] MEDS: CHOLESTYRAMINE LIGHT 4 GM PKT PO SCH (08:25)
--- NOTE | 2021-07-03 09:29 | Discharge Summary ---
Date of Service July 03, 2021 Admission HPI Per Admitting Provider This is a very pleasant 81-year-old gentleman who presents to the emergency room for evaluation due to left greater than right lower extremity pain with associated weakness. Patient was scheduled for an L3-[address] Stanley last week June 23 but due to Covid circumstances and bed availability this was canceled. He has been trying to manage at home with the pain for the past week. He is now requiring the assistance of a cane for ambulation. His left knee is giving out/buckling on him when he ambulates. It is quite challenging for him to find any comfortable position. Denies bowel or bladder changes or perineum numbness. He has been taking Tylenol at home due to his narcotic sensitivities but states this is not controlling his pain. He is also recently been on a steroid pack orally which helped very briefly. Pain is left lower extremity greater than right. It involves the anterior thigh and calf. Also notes right groin pain. Principal Diagnosis Lumbar disc herniation with radiculopathy Discharge Data Allergies Allergy/AdvReac Type Severity Reaction Status Date / Time codeine Allergy Mild ITCHING Verified 06/30/21 09:40 misoprostol AdvReac Mild Diarrhea Verified 06/30/21 09:40 Consultations 06/30/21 09:44 Consult Anesthesiology Routine Consult Internal Medicine Routine 06/30/21 09:51 ED Decision to Admit Stat Procedures Performed Operation Date: 07/01/21 09:15 Actual Procedures p L3-L4 Decompression Fusion with Instrumentation(Not Applicable) - Bebeto Stanley, DO Ordered Studies 07/01/21 09:15 FL lumbar spine 2-3V Routine Hospital Course (1) Lumbar disc herniation with radiculopathy: Patient was admitted with severe radiculopathy and leg weakness following day underwent lumbar decompression fusion trial as well as taken orthopedic floor. He was up and ambulating postop day 1 postop day #2 excellent strength testing. Pain well controlled. MIKEL drain decreasing probably. Subsequent discharge home discharge orders instructions found in chart for further review. Total Time Total Time Spent Total Time Spent (In Minutes): 20 minutes Discharge Plan Discharge Items Patient Disposition: Home - Self-Care Reason For Visit: HNP LUMBAR SPINE, INTRACTABLE LBP Discharge Diagnosis: Lumbar disc condition with radiculopathy Activity: As commented below Non-emergency contact: Primary Care Provider Call non-emergency contact if: you have any medication questions Follow-up/Referrals: Gibran Mancuso III, CRNP [Primary Care Provider] - Diet: Regular Addtl Attending Provider Instructions: ACTIVITY RECOMMENDATIONS: SELF CARE INSTRUCTIONS AFTER THORACIC/LUMBAR FUSIONS 1. You may walk to your tolerance. It is good exercise for your legs and back. Expect some back and intermittent leg aches and pains. 2. You may perform "counter-top" level activities (make a sandwich, hazel with a project, etc.). 3. No bending or lifting of more than 10 pounds or back twisting of any nature (roll like a log when turning in bed). 4. You may ride in a car for 20-30 minutes at a time. No driving until after your first visit with your doctor. 5. Frequent changes of position and restricting sitting to 30 minutes at a time will help limit the amount of back spasms and stiffness you may experience. 6. You may discontinue the use of ambulatory aids (cane, crutches, etc.) once your strength and confidence allow. 7. You may finisher tailor apprentice the shower and let water strike your incision when you arrive home at least once daily. Do not take a tub bath, sit in a hot tub or go into a swimming pool until after your first recheck in the office. SPECIAL CARE INSTRUCTIONS: VERY IMPORTANT TO READ AND REVIEW A. Your surgical incision has been closed with a cosmetic suture under the skin that will dissolve in about 6 weeks. In 14 days, you can use a pair of clean scissors and cut the suture that is left outside of the skin at the ends of your incision. 1. The small skin tapes can be removed 7 days after surgery if they have not fallen off by that point. 2. You may keep the wound open to air as much as possible to promote healing after post-op day number 5 unless told otherwise by your doctor. 3. If you think the wound looks like it is becoming infected (redness or worsening drainage) and/or you are experiencing fever, chill or worsening back pain and muscle spasms, contact the office so that we may evaluate you as soon as possible. B. Complications are uncommon, but please contact us if you have any signs or symptoms of: 1. wound infection (fever higher than 102.5 degrees F, redness, separation o f wound, drainage, or increasing pain from the incision) 2. blood clots in legs (pain, swelling, redness and warmth in legs) 3. urinary tract infection (fever higher than 102.5 degrees F, burning upon urination or increased frequency of urination) 4. nerve problems (inability to walk on your toes or heels, numbness, loss of bowel or bladder control) 5. any other symptoms that concern you C. Please call the office at if you have any concerns or questions about your operation or recovery. D. No smoking! Smoking drastically decreases the chance of a solid fusion. E. Do not take any anti-inflammatory medications (Indocin, Advil, Motrin, Aspi rin, Naprosyn, etc.) as these may inhibit the chance of a solid fusion. Tylenol is okay to take for pain. MANAGING PAIN AFTER SPINAL SURGERY 1. Narcotic medication is intended for short-term use and will be provided for surgical pain. Surgical pain usually lasts for a period of 4-6 weeks. Narcotic medication includes Percocet, Vicodin, Darvocet, Tylenol #3 or Lortab. 2. Longer-term pain is more appropriately treated with non-narcotic medication such as Tylenol ES. 3. Muscle spasm is not appropriately treated with narcotics. Muscle relaxers such as Soma, Flexeril or Skelaxin can be used along with Tylenol ES. 4. Remember that we all live with some "aches and pains". This is not unusual or uncommon after an injury or as we get older. a. Back pain is expected and may include muscle spasms for 4 to 6 weeks after surgery. The pain should gradually improve. If the pain worsens for no apparent reason, please contact the office. b. Intermittent leg pain may also be experienced and should not be concerned about unless it worsens for no apparent reason. If so, please contact the office. 5. We will provide appropriate medication within the normal guidelines of their prescribed use. We will also be very cautious and aware of potential abuse and extended duration of patients' medication needs. a. Pain medications are for your comfort and to assist with sleep and rest so that the tissue can heal. They are not provided in order to return to normal activity and should not be used through the day. To do so or worsening pain at night can result from ongoing tissue damage and development of tolerance to the prescribed medicine. 6. Please allow 2-3 days to process refills. Prescriptions will not be mailed but must be picked up at the office. FOLLOW UP VISIT: Keep your scheduled follow-up appointment. Any questions, please call the office at . Pending Studies at Discharge: No Stand-Alone Forms: My [facility] [employer], Smoking Cessation Medications and DC Order Prescriptions: New tramadol 50 mg tablet 50 mg PO Q6H PRN (Reason: pain, moderate) Qty: 30 RF: 0 oxycodone 5 mg tablet 5 mg PO Q6H PRN (Reason: pain, severe) Qty: 30 RF: 0 Continued nystatin-triamcinolone 100,000-0.1 unit/gram-% ointment 1 appln TOP TID PRN (Reason: rash) Qty: 60 RF: 1 trazodone 100 mg tablet 100 mg PO DAILY Qty: 90 RF: 1 montelukast [Singulair] 10 mg tablet 10 mg PO QPM Qty: 90 RF: 1 gabapentin 300 mg capsule 300 mg PO BID Qty: 180 RF: 1 fluticasone propionate [Allergy Relief (fluticasone)] 50 mcg/actuation spray,suspension 1 spray intranasal DAILY Qty: 15.8 RF: 2 cholestyramine (with sugar) 4 gram powder 4 g PO BID Qty: 378 RF: 5 esomeprazole magnesium 40 mg capsule,delayed release(DR/EC) 40 mg PO DAILY Qty: 90 RF: 1 folic acid 1 mg tablet 6 mg PO QAM Qty: 540 RF: 3 baclofen 10 mg tablet 10 mg PO TID PRN (Reason: Muscle Spasm) Qty: 90 RF: 2 lovastatin 40 mg tablet 40 mg PO DAILY Qty: 90 RF: 3 diphenhydramine-acetaminophen [Tylenol PM Extra Strength] 25-500 mg tablet 1 tab PO HS PRN (Reason: Sleep) RF: 0 cholecalciferol (vitamin D3) 125 mcg (5,000 unit) capsule 125 mcg PO QAM RF: 0 ferrous sulfate 325 mg (65 mg iron) tablet 325 mg PO QAM RF: 0 finasteride 5 mg tablet 5 mg PO QAM Qty: 90 RF: 3 multivitamin [Daily-Robinson] Tablet 1 tab PO QAM Qty: 30 RF: 0 Discharge Orders: Discharge Order (Routine); Ordered 07/03/21 Ordered By: Bebeto Stanley Admission Data Admit Date/Time: 07/01/21 11:12 Attending Provider: Bebeto Stanley Admit Provider: Bebeto Stanley Primary Care Provider: Gibran Mancuso III Other Providers: [facility] ; Faustina Orr ; Darline Ge ; Charlene Barrett ; Edilia Hernandez ; Josephine Marques ; Varinder Yarbrough ; Chapo Pascal ; Bam Dickens ; Matias Rosenthal ; Emelyn Rosenthal ; Walter John ; Cecilia Monet ; Sushil Strickland ; Johnny Min ; Dante Rao ; Luis F Tobias ; Hillary Irizarry ; Fritz Mauricio ; Mariam Sarabia ; Isabelle Mauricio ; Polo Choudhary ; Sherri Chong ; Kenneth Benito ; Chantal Pritchett ; Filomena Russo ; Sherri Pepper ; Hayde Salinas ; Shaun Carrizales ; Radha Young ; Isabel Lewis ; Ariana Salcedo ; Jaelyn Martinez ; Per Martinez V ; Bari Hobbs ; Darline Weston ; Rocco Soriano ; Regi Hoffmann ; Alisson Guerra ; Per Haley ; Juan Irizarry ; Meir Stroud ; Tenisha Way ; Susan Islas ; Per Raza ; Ariana March ; Manas Babb ; Austen Tobias ; Lisset Castro ; Jared Silva ; Janeth Aldana ; Abhay Mcgrath ; Mustapha Mena ; Jared Mendiola ; Varinder Castrejon Jr ; Herminia Monk ; Ian Mclaughlin ; Isabelle Singh ; Jordan Prasad ; Shahbaz Wagner ; Brad Sutton ; Chace Marin ; Meir Salinas ; Hollis Lamas ; Peace Martin ; Sherri Luque ; Weston Chester ; Ramon Obrien ; Radha Zamudio ; Lino Blankenship ; Tyron Edouard ; Charlie Telles ; Isabelle Art ; Ishmael Collado ; Roger Elaine ; Jared iMn ; Jordan Polanco. ; Walter Fernandes ; Janine Pat ; Gibran Shepherd ; Cecilia Chang ; Yared Sesay ; Jonh Portillo ; Bebeto Stanley
== END 2021-07-03 11:53 | disposition home or self-care (01) | DRG 455 ==
LOC: EDINP 08:25 → ED 08:25 → 3N 16:28
DX: E78.00 Pure hypercholesterolemia, unspecified; M79.7 Fibromyalgia; N40.0 Benign prostatic hyperplasia without lower urinary tract symptoms; G47.00 Insomnia, unspecified; M51.16 Intervertebral disc disorders with radiculopathy, lumbar region

== ENCOUNTER 2021-07-06 11:21 | Observation (INO) ==
[2021-07-06] MEDS ORDERED: SODIUM CHLORIDE 0.9% 500 ML IV STA (11:28)
[2021-07-06] MEDS ORDERED: ONDANSETRON INJ 2 MG/ML 2 ML VIAL IV STA (11:28)
--- NOTE | 2021-07-06 11:35 | Emergency Department Note ---
Impression & Plan Post-operative pain, Lumbar back pain with radiculopathy affecting right lower extremity, Infarction of kidney, Intractable back pain ED Provider Note NAME: TAN POZO JR AGE: 81 SEX: M : 1940 ARRIVES VIA: Ambulance INFORMANT: Patient, ED PROVIDER(S): Brady Matos DO CHIEF COMPLAINT: Back pain HPI: The patient is a 81-year-old male who presented to emergency department for evaluation of back pain. The patient describes back pain that is in the midline. He recently had surgery with orthopedic spine last week. The patient states that he has had ongoing worsening symptoms over the last 48 hours. He was unable to ambulate today. The pain appears to go mostly into his right leg. He states the pain is moderate to severe. He denies having any swelling in his legs greater than usual. He denies having any muscle pain. Pain is worse when trying to ambulate. He does not take any blood thinners. He is noticed no fever. He has noticed no chest pain or difficulty breathing. He does complain of right-sided abdominal pain as well. The pain began acutely and was associated with nausea. He notices no black or bloody bowel movements. ROS: See above HPI for pertinent positives & negatives. A total of 10 systems reviewed and were otherwise negative. PAST MEDICAL HISTORY: See Below PAST SURGICAL HISTORY: See Below FAMILY HISTORY: See Below SOCIAL HISTORY: See Below HOME MEDICATIONS: See Below ALLERGIES: See Below VITALS: See Below PHYSICAL EXAMINATION: GENERAL: The patient is awake and alert. He is somewhat anxious appearing. EYES: The conjunctivae are clear. The pupils are round and reactive. EARS, NOSE, MOUTH AND THROAT: The nose is without any evidence of any deformity. NECK: The neck is nontender and supple. RESPIRATORY: Normal respiratory effort is noted there is no evidence of wheezing rhonchi or rales CARDIOVASCULAR: Regular rate and rhythm noted there no murmurs rubs or gallops normal S1 normal S2. GASTROINTESTINAL: The abdomen is mildly distended. There is tenderness in the right upper quadrant. No specific guarding or rigidity was appreciated. BACK: There was a wound dressing in place over the lumbar spine. There was no erythema or dehiscence. There was some swelling noted as well as palpable tenderness. MUSCULOSKELETAL/EXTREMITIES: There is no evidence of gross deformity full range of motion is noted in the hips and shoulders. SKIN: There is no obvious evidence of any rash. Trace pedal edema was noted bilaterally. There is no calf tenderness. Pulses are symmetric in both feet. NEUROLOGIC: Patient is awake alert and oriented x3 strength is symmetric patellar reflexes are 2+ bilaterally. Great toe raise was symmetric. Achilles tendon reflexes were 1+ bilaterally. MEDICAL DECISION MAKING: The patient is a 81-year-old male who presented to the emergency department for an evaluation of back pain. The patient had very severe back pain which radiated to his right lower extremity. The patient is status post lumbar spine surgery. The patient denies having any trauma. The patient had very severe pain which radiated to his right leg. He also had some abdominal pain on physical exam. I discussed the patient's laboratory and radiographic studies with him. He was treated with IV pain medication and IV antiemetics. He was also treated with IV steroids. I discussed his condition with his primary orthopedic spinal specialist. Given his other findings on CT I also discussed his case with the on-call [facility] hospitalist. On reevaluation he was feeling somewhat better but the patient is not sure if he could be able to go home. His pain is very severe and he is not doing well at home. He may need further work-up but also down the road may need some sort of placement for inpatient rehab. Triage Nursing notes reviewed. Prior medical records reviewed Vital Signs: reviewed and remarkable for no significant abnormalities Differential diagnosis: Musculoskeletal, disc herniation, fracture, metastatic disease, cord compression, discitis, sciatica, cauda equina, infection, aortic disease, renal colic, gastrointestinal, as well as other pathologies. ER treatment provided: See below Diagnostics interpreted by me: ECG: none Cardiac Monitoring: An order was placed for continuous cardiac monitoring. The monitor shows a rate of 82 bpm with sinus rhythm. Laboratory studies: As stated above and show below. Imaging studies: See below Consultation(s): I discussed this case with Dr. Stanley who is the patient's primary orthopedic spinal surgeon. I discussed this case with Dr. Polanco [facility] 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 Bebeto Stanley- Open R SI joint fusion, placement of 25 mm bony allograft filled with infuse within the R SI joint, placement of 2 globus percutaneous SI joint screws both GONZÁLES-coated and filled with infuse History of arthroscopy of left shoulder History of cataract extraction with lens replacement RT/LEFT History of colonoscopy History of elbow surgery RT History of esophagogastroduodenoscopy (EGD) History of hemorrhoidectomy History of repair of rotator cuff RT/LEFT History of tooth extraction History of total hip arthroplasty RT History of total knee replacement RT/LEFT History of vasectomy History of vitrectomy LEFT Family History Unknown Diabetes High cholesterol Grandmother (Maternal) Diabetes Family history of diabetes mellitus Grandmother (Paternal) Diabetes Family history of diabetes mellitus Father Heart disease Cardiac disorder Myocardial infarction Mother Cancer Other No family history of adverse response to anesthesia Denies family history of Ovarian cancer Prostate cancer Breast cancer Colorectal cancer Social History Smoking Status: Former smoker Second Hand Exposure: No; Hx Alcohol Use: Yes Alcohol type: wine Hx Substance Use: No Preferred Language: [place] Communication Ability: Effective Visual Impairment: No Limitations Hearing Ability: Use of Hearing Aid Book Publisher Required: No Beliefs That Will Affect Care: None marital status: Current Living Situation: Spouse current occupational status: retired Feels Safe at Home: Yes Childhood Exposure to Second-Hand Smoke: Yes Dental Care, Regularly: Yes Physical Activity Frequency: Daily Seatbelt Use: always Sunscreen Use: No Assistive Devices: None Allergies Allergies Allergy/AdvReac Type Severity Reaction Status Date / Time codeine Allergy Mild ITCHING Verified 07/06/21 13:57 misoprostol AdvReac Mild Diarrhea Verified 07/06/21 13:57 Home Meds Home Medications Medication Instructions Recorded Confirmed diphenhydramine 25 1 tab PO HS PRN 09/28/19 07/06/21 mg-acetaminophen 500 mg tablet (Tylenol PM Extra Strength) cholecalciferol (vitamin D3) 125 125 mcg PO QAM 03/25/20 07/06/21 mcg (5,000 unit) capsule ferrous sulfate 325 mg (65 mg 325 mg PO QAM 03/25/20 07/06/21 iron) tablet Previous Rx's Medication Instructions Recorded multivitamin (Daily-Robinson) 1 tab PO QAM #30 tab 05/07/19 nystatin-triamcinolone 100,000 1 appln TOP TID PRN #60 gm 12/11/19 unit/gram-0.1 % topical ointment finasteride 5 mg tablet 5 mg PO QAM #90 tab 06/27/20 trazodone 100 mg tablet 100 mg PO DAILY #90 tab 02/06/21 montelukast 10 mg tablet 10 mg PO QPM #90 tab 02/24/21 (Singulair) gabapentin 300 mg capsule 300 mg PO BID #180 cap 02/27/21 fluticasone propionate 50 1 spray INTRANASAL DAILY #15.8 ml 03/10/21 mcg/actuation nasal spray,suspension (Allergy Relief (fluticasone)) cholestyramine (with sugar) 4 gram 4 g PO BID #378 gm 03/12/21 oral powder esomeprazole magnesium 40 mg 40 mg PO DAILY #90 cap 03/21/21 capsule,delayed release folic acid 1 mg tablet 6 mg PO QAM #540 tab 05/21/21 baclofen 10 mg tablet 10 mg PO TID PRN #90 tab 05/22/21 lovastatin 40 mg tablet 40 mg PO DAILY #90 tab 05/30/21 oxycodone 5 mg tablet 5 mg PO Q6H PRN #30 tab 07/02/21 tramadol 50 mg tablet 50 mg PO Q6H PRN #30 tab 07/02/21 Results & Data (ED) Vital Signs Vital Signs - 24 hr 07/06/21 11:28 07/06/21 11:56 07/06/21 13:27 Temperature 36.4 C Temperature Source Oral Pulse Rate 78 Pulse Rate [Right Finger] 82 Pulse Rhythm Regular Pulse Strength Normal Respiratory Rate 18 18 Respiratory Effort / Characteristics Non-Labored Respiratory Depth Normal Respiratory Pattern Regular Blood Pressure 124/76 Blood Pressure [Right Arm] 122/74 Blood Pressure Mean 92 Blood Pressure Mean [Right Arm] 90 Blood Pressure Position Lying Pulse Oximetry 96 96 97 Oxygen Delivery Method Room Air Room Air Room Air Sepsis Recent Fever Within 48 Hours No Sepsis New/Unexplained Change in Mental Status No Sepsis Action Taken by Nursing No Action Required Home Medications Current Medication List: was personally reviewed by me Laboratory Data Attestation: I reviewed the patient's lab results. Result diagrams: 07/06/21 11:48 07/06/21 11:48 Lab Results 07/06/21 07/06/21 07/06/21 Range/Units 11:48 11:48 12:17 WBC 13.09 H (4.8-10.8) K/uL RBC 4.61 L (4.7-6.1) M/uL Hgb 14.7 (14.0-18.0) g/dL POC Hgb 13.9 L (14.0-18.0) g/dl Hct 43.8 (42-52) % POC Hct 41 L (42-52) % MCV 95.0 (80-100) fL MCH 31.9 (25-34) pg MCHC 33.6 (32-36) g/dL RDW Std Deviation 46.9 H (36.4-46.3) fL RDW Coeff of Joce 13.6 (11.5-14.5) % Plt Count 183 (130-400) K/uL MPV 9.6 (7.4-10.4) fL Immature Gran % (Auto) 1.1 % Neut % (Auto) 73.6 % Lymph % (Auto) 12.6 % Williams % (Auto) 12.1 % Eos % (Auto) 0.5 % Baso % (Auto) 0.1 % Neut # (Auto) 9.62 H (1.4-6.5) K/uL Lymph # (Auto) 1.65 (1.2-3.4) K/uL Williams # (Auto) 1.59 H (0.11-0.59) K/uL Eos # (Auto) 0.07 (0-0.5) K/uL Baso # (Auto) 0.01 (0-0.2) K/uL Immature Gran # (Auto) 0.15 H (0.00-0.02) K/uL POC Sodium 135 (135-144) mmol/L Sodium 132 L (136-145) mmol/L POC Potassium 4.0 (3.3-5.0) mmol/L Potassium 3.9 (3.5-5.1) mmol/L POC Chloride 96 L (101-112) mmol/L Chloride 99 (98-107) mmol/L Carbon Dioxide 30 (21-32) mmol/L POC Total CO2 28 (24-31) mmol/L Anion Gap 3.0 (3-11) POC Anion Gap 16.0 (16-25) mmol/L POC BUN 13 (7-18) mg/dl BUN 15 (7-18) mg/dl Creatinine 0.77 (0.6-1.4) mg/dl POC Creatinine 0.7 (0.6-1.3) mg/dl Est Cr Clr Drug Dosing 90.6 ml/min Est GFR ( Amer) 100.0 ml/min Est GFR (Non-Af Amer) 86.3 ml/min BUN/Creatinine Ratio 19.0 (10-20) Glucose 90 (70-99) mg/dl POC Glucose (other) 93 (70-99) mg/dl Calcium 8.8 (8.5-10.1) mg/dl POC Ioniz Calcium Zac 1.11 L (1.12-1.32) mmol/l Total Bilirubin 1.6 H (0.2-1) mg/dl AST 17 (15-37) U/L ALT 28 (12-78) U/L Alkaline Phosphatase 59 (45-117) U/L Total Protein 6.8 (6.4-8.2) gm/dl Albumin 2.8 L (3.4-5.0) gm/dl Globulin 4.0 (2.5-4.0) gm/dl Albumin/Globulin Ratio 0.7 L (0.9-2) Lipase 52 L (73-393) U/L Urine Color Urine Appearance (Clear) Urine pH (4.5-7.5) Ur Specific [place] (1.000-1.030) Urine Protein (Negative) Urine Glucose (UA) (Negative) Urine Ketones (Negative) Urine Blood (Negative) Urine Nitrite (Negative) Urine Bilirubin (Negative) Urine Urobilinogen (Negative) Ur Leukocyte Esterase (Negative) 07/06/21 Range/Units 12:57 WBC (4.8-10.8) K/uL RBC (4.7-6.1) M/uL Hgb (14.0-18.0) g/dL POC Hgb (14.0-18.0) g/dl Hct (42-52) % POC Hct (42-52) % MCV (80-100) fL MCH (25-34) pg MCHC (32-36) g/dL RDW Std Deviation (36.4-46.3) fL RDW Coeff of Joce (11.5-14.5) % Plt Count (130-400) K/uL MPV (7.4-10.4) fL Immature Gran % (Auto) % Neut % (Auto) % Lymph % (Auto) % Williams % (Auto) % Eos % (Auto) % Baso % (Auto) % Neut # (Auto) (1.4-6.5) K/uL Lymph # (Auto) (1.2-3.4) K/uL Williams # (Auto) (0.11-0.59) K/uL Eos # (Auto) (0-0.5) K/uL Baso # (Auto) (0-0.2) K/uL Immature Gran # (Auto) (0.00-0.02) K/uL POC Sodium (135-144) mmol/L Sodium (136-145) mmol/L POC Potassium (3.3-5.0) mmol/L Potassium (3.5-5.1) mmol/L POC Chloride (101-112) mmol/L Chloride (98-107) mmol/L Carbon Dioxide (21-32) mmol/L POC Total CO2 (24-31) mmol/L Anion Gap (3-11) POC Anion Gap (16-25) mmol/L POC BUN (7-18) mg/dl BUN (7-18) mg/dl Creatinine (0.6-1.4) mg/dl POC Creatinine (0.6-1.3) mg/dl Est Cr Clr Drug Dosing ml/min Est GFR ( Amer) ml/min Est GFR (Non-Af Amer) ml/min BUN/Creatinine Ratio (10-20) Glucose (70-99) mg/dl POC Glucose (other) (70-99) mg/dl Calcium (8.5-10.1) mg/dl POC Ioniz Calcium Zac (1.12-1.32) mmol/l Total Bilirubin (0.2-1) mg/dl AST (15-37) U/L ALT (12-78) U/L Alkaline Phosphatase (45-117) U/L Total Protein (6.4-8.2) gm/dl Albumin (3.4-5.0) gm/dl Globulin (2.5-4.0) gm/dl Albumin/Globulin Ratio (0.9-2) Lipase (73-393) U/L Urine Color Yellow Urine Appearance Clear (Clear) Urine pH 7.5 (4.5-7.5) Ur Specific [place] 1.008 (1.000-1.030) Urine Protein Negative (Negative) Urine Glucose (UA) Negative (Negative) Urine Ketones Negative (Negative) Urine Blood Negative (Negative) Urine Nitrite Negative (Negative) Urine Bilirubin Negative (Negative) Urine Urobilinogen Negative (Negative) Ur Leukocyte Esterase Negative (Negative) Administered Medications Fentanyl Citrate (Fentanyl Citrate 100 Mcg/2 Ml Vial) 50 mcg IV Q15M PRN PRN Reason: Pain Stop: 07/20/21 11:27 Last Admin: 07/06/21 14:17 Dose: 50 mcg Documented by: [id number] Admin: 07/06/21 12:48 Dose: 50 mcg Documented by: [id number] Admin: 07/06/21 12:02 Dose: 50 mcg Documented by: [id number] Discontinued Medications Sodium Chloride (Nss) 500 mls @ 999 mls/hr IV .Q31M STA Stop: 07/06/21 11:58 Last Infusion: 07/06/21 12:33 Dose: 0 mls/hr Documented by: [id number] Admin: 07/06/21 12:02 Dose: 999 mls/hr Documented by: [id number] Ioversol (Optiray 320 100ml) 94 ml IV ONCE ONE Stop: 07/06/21 13:53 Last Admin: 07/06/21 13:53 Dose: 94 ml Documented by: [id number] Ondansetron HCl (Ondansetron Inj 2 Mg/Ml 2 Ml Vial) 4 mg IV NOW STA Stop: 07/06/21 11:29 Last Admin: 07/06/21 12:02 Dose: 4 mg Documented by: [id number] Imaging Data Radiologist's Impression: Abdomen/Pelvis CT 07/06/21 11:28 CT OF THE ABDOMEN AND PELVIS WITH CONTRAST CLINICAL HISTORY: Right upper quadrant abdominal pain. Right hip pain. Recent lumbar spine surgery. COMPARISON STUDY: CT of the abdomen and pelvis April 03, 2016. TECHNIQUE: Following IV administration of 94 mL of Optiray, axial images of the abdomen and pelvis were obtained from the lung bases to the proximal femurs. Due to severe right hip pain, patient was scanned in the left lateral decubitus position. Images were reviewed in the axial, sagittal, and coronal planes. IV contrast was administered without complication. Automated exposure control was utilized for the study. A dose lowering technique was utilized adhering to the principles of ALARA. CT DOSE: 1097.86 mGy.cm FINDINGS: Please note that the lumbar spine CT will be reported separately. Lung bases are unremarkable. No pneumatosis, free air or portal venous gas is present. Gallbladder slightly distended. There is no pericholecystic infiltrat ion. The spleen, adrenal glands and pancreas are unremarkable. Water attenuation bilateral renal lesions reflect cysts. These are unchanged. Note is made of a wedge-shaped 2.5 cm hypodense focus within the upper pole of the left kidney. There is no hydronephrosis. There is no evidence for a bowel obstruction. The appendix is normal. Bladder is mildly distended. Fat-containing left inguinal hernia is present. Right hip arthroplasty is noted. Postoperative findings within lumbar spine are depicted on the CT of the lumbar spine which will be reported separately. IMPRESSION: 1. 2.5 cm wedge-shaped hypodense focus within the upper pole of the left kidney. This favors a renal infarct. Pyelonephritis could appear similar. A renal lesion is considered much less likely however a follow-up CT in 3 months to ensure re solution is recommended. 2. No bowel obstruction. No bowel wall thickening. Normal appendix. 3. Postoperative findings within the lumbar spine better depicted on the CT of the lumbar spine. This will be reported separately. ACT 112: Negative or not required by law. Electronically signed by: Damian Pool M.D. 07/06/2021 2:[address] 07/06/21 11:28 CT lumbar spine w con CLINICAL HISTORY: Postoperative pain. COMPARISON STUDY: Lumbar spine MRI May 28, 2021. TECHNIQUE: Axial images of the lumbar spine were obtained following intravenous injection of 94 cc of Optiray 320 IV. Sagittal and coronal reconstructions were viewed. Automated exposure control was utilized for the study. A dose lowering technique was utilized adhering to the principles of ALARA. FINDINGS: Please note that the CT of the abdomen and pelvis will be reported separately. For purposes of numbering on this exam, the L5-S1 disc space is assigned to axial image 298 of 362. Note is made of an L3-L4 discectomy with interbody spacer placement. Posterior decompression is noted with bilateral pedicle screw fusion at L3 and L4. The hardware is intact. There are no unexpected radiopaque foreign bodies. Evaluation of the central canal and neural foramen is significantly compromised given CT technique and artifact from surgical hardware. There is a nondisplaced fracture of the left transverse process of L3. No additional lumbar spine fractures are noted. As expected, there is fluid and stranding within the operative bed. Right sacroiliac joint fusion is partially imaged. There is moderate disc space narrowing at L5-S1. Multilevel facet arthrosis is present. IMPRESSION: 1. Status post L3-L4 discectomy, posterior decompression and bilateral pedicle screw fusion. Hardware intact. Fluid within the operative bed which is expected in the early postoperative setting. 2. Nondiagnostic evaluation of the central canal and neural foramen given CT technique and artifact from hardware. 3. Nondisplaced fracture of the left transverse process of L3. ACT 112: Negative or not required by law. Electronically signed by: Damian Pool M.D. 07/06/2021 2:16 PM Discharge Plan Visit Data Chief Complaint: Back Injury/Pain Stated Complaint: BACK, LEG PAIN ED Provider: Brady Matos Discharge Problem: Post-operative pain, Lumbar back pain with radiculopathy affecting right lower extremity, Infarction of kidney, Intractable back pain Patient Disposition: Being Evaluated by Hospitalist Forms Stand Alone Forms: [facility] Prescriptions Prescriptions: No Action nystatin-triamcinolone 100,000-0.1 unit/gram-% ointment 1 appln TOP TID PRN (Reason: rash) Qty: 60 RF: 1 trazodone 100 mg tablet 100 mg PO DAILY Qty: 90 RF: 1 montelukast [Singulair] 10 mg tablet 10 mg PO QPM Qty: 90 RF: 1 gabapentin 300 mg capsule 300 mg PO BID Qty: 180 RF: 1 fluticasone propionate [Allergy Relief (fluticasone)] 50 mcg/actuation spray,suspension 1 spray intranasal DAILY Qty: 15.8 RF: 2 cholestyramine (with sugar) 4 gram powder 4 g PO BID Qty: 378 RF: 5 esomeprazole magnesium 40 mg capsule,delayed release(DR/EC) 40 mg PO DAILY Qty: 90 RF: 1 folic acid 1 mg tablet 6 mg PO QAM Qty: 540 RF: 3 baclofen 10 mg tablet 10 mg PO TID PRN (Reason: Muscle Spasm) Qty: 90 RF: 2 lovastatin 40 mg tablet 40 mg PO DAILY Qty: 90 RF: 3 diphenhydramine-acetaminophen [Tylenol PM Extra Strength] 25-500 mg tablet 1 tab PO HS PRN (Reason: Sleep) RF: 0 cholecalciferol (vitamin D3) 125 mcg (5,000 unit) capsule 125 mcg PO QAM RF: 0 ferrous sulfate 325 mg (65 mg iron) tablet 325 mg PO QAM RF: 0 finasteride 5 mg tablet 5 mg PO QAM Qty: 90 RF: 3 multivitamin [Daily-Robinson] Tablet 1 tab PO QAM Qty: 30 RF: 0 tramadol 50 mg tablet 50 mg PO Q6H PRN (Reason: pain, moderate) Qty: 30 RF: 0 oxycodone 5 mg tablet 5 mg PO Q6H PRN (Reason: pain, severe) Qty: 30 RF: 0 Referrals Referrals: Gibran Mancuso III, CRNP [Primary Care Provider] -
[2021-07-06 11:57] LABS: Basophils # (auto) 0.01 K/uL (0-0.2); Basophils % (auto) 0.1 %; Eosinophils # (auto) 0.07 K/uL (0-0.5); Eosinophils % (auto) 0.5 %; Hematocrit (blood only) 43.8 % (42-52); Hemoglobin 14.7 g/dL (14.0-18.0); Immature Granulocytes # (auto) 0.15 K/uL (0.00-0.02); Immature Granulocytes % (auto) 1.1 %; Lymphocytes # (auto) 1.65 K/uL (1.2-3.4); Lymphocytes % (auto) 12.6 %; Mean Corpuscular Hemoglobin 31.9 pg (25-34); Mean Corpuscular Hgb Conc 33.6 g/dL (32-36); Mean Platelet Volume 9.6 fL (7.4-10.4); Monocytes # (auto) 1.59 K/uL (0.11-0.59); Monocytes % (auto) 12.1 %; Neutrophils # (auto) 9.62 K/uL (1.4-6.5); Neutrophils % (auto) 73.6 %; Platelet Count 183 K/uL (130-400); RDW Coefficient of Variation 13.6 % (11.5-14.5); RDW Standard Deviation 46.9 fL (36.4-46.3); Red Blood Count 4.61 M/uL (4.7-6.1); White Blood Count 13.09 K/uL (4.8-10.8)
[2021-07-06] MEDS: fentaNYL citrate 100 MCG/2 ML VIAL IV PRN ×3 (12:02→14:17)
[2021-07-06 12:14] LABS: Albumin Level 2.8 gm/dl (3.4-5.0); Calcium 8.8 mg/dl (8.5-10.1); Creatinine Clr Calc Pharmacy 90.6 ml/min; Est GFR (Non-African American) 86.3 ml/min; Potassium 3.9 mmol/L (3.5-5.1)
[2021-07-06 12:17] LABS: Albumin Globulin Ratio 0.7 (0.9-2); Bilirubin,Total 1.6 mg/dl (0.2-1); Total Protein 6.8 gm/dl (6.4-8.2)
[2021-07-06 12:30] LABS: iSTAT Creatinine 0.7 mg/dl (0.6-1.3); iSTAT Hemoglobin 13.9 g/dl (14.0-18.0); iSTAT Ionized Calcium 1.11 mmol/l (1.12-1.32)
[2021-07-06 13:04] LABS: Appearance Urine Clear (Clear); Bilirubin Urine Negative (Negative); Blood Urine Negative (Negative); Color Urine Yellow; Glucose Urine UA Negative (Negative); Ketones Urine Negative (Negative); Leukocyte Esterase Urine Negative (Negative); Nitrite Urine Negative (Negative); Protein Urine Negative (Negative); Specific Gravity Urine 1.008 (1.000-1.030); Urobilinogen Urine Negative (Negative); pH Urine 7.5 (4.5-7.5)
[2021-07-06] MEDS ORDERED: OPTIRAY 320 100ml IV ONE (13:52)
--- NOTE | 2021-07-06 14:08 | CT Scan Report ---
CT OF THE ABDOMEN AND PELVIS WITH CONTRAST CLINICAL HISTORY: Right upper quadrant abdominal pain. Right hip pain. Recent lumbar spine surgery. COMPARISON STUDY: CT of the abdomen and pelvis April 03, 2016. TECHNIQUE: Following IV administration of 94 mL of Optiray, axial images of the abdomen and pelvis we re obtained from the lung bases to the proximal femurs. Due to severe right hip pain, patient was sca nned in the left lateral decubitus position. Images were reviewed in the axial, sagittal, and coronal planes. IV contrast was administered without complication. Automated exposure control was utilized for the study. A dose lowering technique was utilized adhering to the principles of ALARA. CT DOSE: 1097.86 mGy.cm FINDINGS: Please note that the lumbar spine CT will be reported separately. Lung bases are unremarkab le. No pneumatosis, free air or portal venous gas is present. Gallbladder slightly distended. There i s no pericholecystic infiltration. The spleen, adrenal glands and pancreas are unremarkable. Water at tenuation bilateral renal lesions reflect cysts. These are unchanged. Note is made of a wedge-shaped 2.5 cm hypodense focus within the upper pole of the left kidney. There is no hydronephrosis. There is no evidence for a bowel obstruction. The appendix is normal. Bladder is mildly distended. Fat-contai jeff left inguinal hernia is present. Right hip arthroplasty is noted. Postoperative findings within lumbar spine are depicted on the CT of the lumbar spine which will be reported separately. IMPRESSION: 1. 2.5 cm wedge-shaped hypodense focus within the upper pole of the left kidney. This favors a renal infarct. Pyelonephritis could appear similar. A renal lesion is considered much less likely however a follow-up CT in 3 months to ensure resolution is recommended. 2. No bowel obstruction. No bowel wall thickening. Normal appendix. 3. Postoperative findings within the lumbar spine better depicted on the CT of the lumbar spine. This will be reported separately. ACT 112: Negative or not required by law. Electronically signed by: Damian Pool M.D. 07/06/2021 2:06 PM
--- NOTE | 2021-07-06 14:17 | CT Scan Report ---
CT lumbar spine w con CLINICAL HISTORY: Postoperative pain. COMPARISON STUDY: Lumbar spine MRI May 28, 2021. TECHNIQUE: Axial images of the lumbar spine were obtained following intravenous injection of 94 cc of Optiray 320 IV. Sagittal and coronal reconstructions were viewed. Automated exposure control was uti lized for the study. A dose lowering technique was utilized adhering to the principles of ALARA. FINDINGS: Please note that the CT of the abdomen and pelvis will be reported separately. For purposes of numbering on this exam, the L5-S1 disc space is assigned to axial image 298 of 362. Note is made of an L3-L4 discectomy with interbody spacer placement. Posterior decompression is noted with bilater al pedicle screw fusion at L3 and L4. The hardware is intact. There are no unexpected radiopaque fore ign bodies. Evaluation of the central canal and neural foramen is significantly compromised given CT technique and artifact from surgical hardware. There is a nondisplaced fracture of the left transvers e process of L3. No additional lumbar spine fractures are noted. As expected, there is fluid and stra nding within the operative bed. Right sacroiliac joint fusion is partially imaged. There is moderate disc space narrowing at L5-S1. Multilevel facet arthrosis is present. IMPRESSION: 1. Status post L3-L4 discectomy, posterior decompression and bilateral pedicle screw fusion. Hardware intact. Fluid within the operative bed which is expected in the early postoperative setting. 2. Nondiagnostic evaluation of the central canal and neural foramen given CT technique and artifact f rom hardware. 3. Nondisplaced fracture of the left transverse process of L3. ACT 112: Negative or not required by law. Electronically signed by: Damian Pool M.D. 07/06/2021 2:16 PM
[2021-07-06] MEDS ORDERED: dexAMETHasone**PF** 10 MG/ML VIAL IV ONE (14:29)
[2021-07-06] MEDS ORDERED: HYDROmorphone INJ 1 MG/ML SYRINGE IV STA (15:40)
[2021-07-06] MEDS ORDERED: BACLOFEN 10 MG TAB PO STA (15:51)
[2021-07-06 16:00] LABS: Partial Thromboplastin Ratio 0.9; Partial Thromboplastin Time 24.6 Seconds (21.0-31.0); Prothrombin Time 10.1 Seconds (9.0-12.0)
--- NOTE | 2021-07-06 18:03 | Ultrasound Report ---
RIGHT LOWER EXTREMITY VENOUS DOPPLER CLINICAL HISTORY: right calf and thigh pain COMPARISON STUDY: Right lower extremity venous Doppler ultrasound May 15, 2019. TECHNIQUE: Sonography of the deep venous system of the right lower extremity was performed. Compress ion and augmentation were evaluated. FINDINGS: The right common femoral, superficial femoral and popliteal veins were compressible. Note is made of a small amount of echogenic material within the right popliteal vein which is similar in a ppearance to ultrasound of May 15, 2019. There is also wall thickening of the right popliteal vein . This favors chronic thrombus. Augmentation was normal. Flow was shown within the deep calf vessels. IMPRESSION: 1. No evidence of acute deep venous thrombus within the right lower extremity. 2. Stranding within the right popliteal vein is unchanged since ultrasound of May 15, 2019 and Nov. This represents stable chronic thrombus. Wall thickening of the right popliteal vein als o favors chronic thrombus. ACT 112: Negative or not required by law. Electronically signed by: Damian Pool M.D. 07/06/2021 6:01 PM
[2021-07-06] MEDS ORDERED: BACLOFEN 10 MG TAB PO PRN (18:57)
[2021-07-06] MEDS ORDERED: NON-FORMULARY MEDICATION (Diphenhydramine-Acetaminophen [Tylenol Pm Extra Strength] 25-500 PO PRN (18:57)
[2021-07-06] MEDS ORDERED: ACETAMINOPHEN 500 MG TAB PO PRN (19:34)
[2021-07-06] MEDS ORDERED: diphenhydrAMINE Capsule 25 MG CAP PO PRN (19:34)
[2021-07-06] MEDS: GABAPENTIN 300 MG CAP PO SCH (20:40)
[2021-07-06] MEDS: MONTELUKAST SODIUM 10 MG TABLET PO SCH (20:40)
[2021-07-06] MEDS: traZODone HCL 100 MG TAB PO SCH (20:40)
[2021-07-06] MEDS: CALCIUM CARBONATE 500 MG CHEWABLE TAB PO PRN (20:41)
[2021-07-06] MEDS: CHOLESTYRAMINE LIGHT 4 GM PKT PO SCH (20:41)
[2021-07-06] MEDS: ACETAMINOPHEN 500 MG TAB PO SCH (20:41)
[2021-07-07] MEDS: HYDROmorphone INJ 0.5 MG/0.5 ML SYR IV PRN ×2 (06:07→09:33)
--- NOTE | 2021-07-07 07:42 | History & Physical Report ---
Date of Service July 06, 2021 Assessment & Plan (1) Post-operative pain: Plan: Pain mainly on right thigh Dexamethasone 10mg IV given in ER Dilaudid 0.5mg IV Q4H PRN If still intractable in AM consider ortho spine evaluation US venous doppler RLE (2) Lumbar back pain with radiculopathy affecting right lower extremity: Plan: As above (3) Intractable back pain: Plan: As above (4) Infarction of kidney: Plan: Discussed with Dr Pool. Very small. Suspect atherosclerotic disease of small vessel. CT angiogram would not help given size of renal infarct. Start antiplatelet when recovered from surgery. Continue on statin (5) BPH (benign prostatic hyperplasia): Plan: Continue finasteride 5mg PO daily (6) Raynauds phenomenon: Plan: Noted history of this. On no specific medications. (7) Fibromyalgia: Plan: Continue gabapentin 300mg PO BID Plan: VTE Prophylaxis - deferred SCDs due to Us doppler results Diet - regular Disposition - observation status to med/surg Admission and Anticipated Discharge Date Admission Date: July 06, 2021 History of Present Illness Primary Care Provider: Gibran Mancuso III, YSABEL Darius Brar is a 81 year old male who presents to the ER with right leg pain following his recent operation for lumbar disc herniation with radiculopathy performed on July 01. THe patient was initially doing well after his operation with some pain around his surgical scars but good relief from his left leg pain and weakness. He was doing well up until the last 2 days with progressively worsening right thigh pain on ambulation which resolves when he lies down. He is finding it hard to get comfortable in the bed currently. 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 He denies any calf pain. Pain in his thigh is severity 8/10. In the ER his CT A/P incidentally showed a small renal infarct. The patient reports no pain over the area. No change in his urine. He was referred to medicine for admission and ongoing management of post operative pain, left renal infarct and right radiculopathy. Allergies Allergy/AdvReac Type Severity Reaction Status Date / Time codeine Allergy Mild ITCHING Verified 07/06/21 13:57 misoprostol AdvReac Mild Diarrhea Verified 07/06/21 13:57 Home Medications Medication Instructions Recorded Confirmed Type multivitamin (Daily-Robinson) 1 tab PO QAM #30 tab 05/07/19 07/06/21 Rx diphenhydramine 25 1 tab PO HS PRN 09/28/19 07/06/21 History mg-acetaminophen 500 mg tablet (Tylenol PM Extra Strength) nystatin-triamcinolone 100,000 1 appln TOP TID PRN #60 gm 12/11/19 07/06/21 Rx unit/gram-0.1 % topical ointment cholecalciferol (vitamin D3) 125 125 mcg PO QAM 03/25/20 07/06/21 History mcg (5,000 unit) capsule ferrous sulfate 325 mg (65 mg 325 mg PO QAM 03/25/20 07/06/21 History iron) tablet finasteride 5 mg tablet 5 mg PO QAM #90 tab 06/27/20 07/06/21 Rx trazodone 100 mg tablet 100 mg PO DAILY #90 tab 02/06/21 07/06/21 Rx montelukast 10 mg tablet 10 mg PO QPM #90 tab 02/24/21 07/06/21 Rx (Singulair) gabapentin 300 mg capsule 300 mg PO BID #180 cap 02/27/21 07/06/21 Rx fluticasone propionate 50 1 spray INTRANASAL DAILY #15.8 ml 03/10/21 07/06/21 Rx mcg/actuation nasal spray,suspension (Allergy Relief (fluticasone)) cholestyramine (with sugar) 4 gram 4 g PO BID #378 gm 03/12/21 07/06/21 Rx oral powder esomeprazole magnesium 40 mg 40 mg PO DAILY #90 cap 03/21/21 07/06/21 Rx capsule,delayed release folic acid 1 mg tablet 6 mg PO QAM #540 tab 05/21/21 07/06/21 Rx baclofen 10 mg tablet 10 mg PO TID PRN #90 tab 05/22/21 07/06/21 Rx lovastatin 40 mg tablet 40 mg PO DAILY #90 tab 05/30/21 07/06/21 Rx oxycodone 5 mg tablet 5 mg PO Q6H PRN #30 tab 07/02/21 07/06/21 Rx tramadol 50 mg tablet 50 mg PO Q6H PRN #30 tab 07/02/21 07/06/21 Rx Past Med/Surg History Medical History BPH (benign prostatic hyperplasia) Chronic gastroesophageal reflux disease Usually at night - well controlled with Nexium Degenerative disc disease Low back pain with radiation to LE and weakness 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 Bebeto Stanley- Open R SI joint fusion, placement of 25 mm bony allograft filled with infuse within the R SI joint, placement of 2 globus percutaneous SI joint screws both GONZÁLES-coated and filled with infuse History of arthroscopy of left shoulder History of cataract extraction with lens replacement RT/LEFT History of colonoscopy History of elbow surgery RT History of esophagogastroduodenoscopy (EGD) History of hemorrhoidectomy History of repair of rotator cuff RT/LEFT History of tooth extraction History of total hip arthroplasty RT History of total knee replacement RT/LEFT History of vasectomy History of vitrectomy LEFT Family History Unknown Diabetes High cholesterol Grandmother (Maternal) Diabetes Family history of diabetes mellitus Grandmother (Paternal) Diabetes Family history of diabetes mellitus Father Heart disease Cardiac disorder Myocardial infarction Mother Cancer Other No family history of adverse response to anesthesia Denies family history of Ovarian cancer Prostate cancer Breast cancer Colorectal cancer Social History Smoking Status: Former smoker Second Hand Exposure: No; Hx Alcohol Use: No Hx Substance Use: No Preferred Language: Welsh Communication Ability: Effective Visual Impairment: No Limitations Hearing Ability: Use of Hearing Aid Nursing Staffing Coordinator Required: No Beliefs That Will Affect Care: None marital status: Current Living Situation: Spouse current occupational status: retired Feels Safe at Home: Yes Safety Concerns: Feels Safe At This Time Childhood Exposure to Second-Hand Smoke: Yes Dental Care, Regularly: Yes Physical Activity Frequency: Daily Seatbelt Use: always Sunscreen Use: No Assistive Devices: Glasses and Walker Assistive Devices Comment: Partials Review of Systems Review of Systems: All systems reviewed & are unremarkable except as noted in HPI & below Physical Exam Constitutional: WD/WN, vitals as above Eyes: + anicteric sclerae; normal pupil size ENMT: external ear and nose normal, oropharynx normal Respiratory: normal respiratory effort, lungs clear to auscultation Cardiovascular: RRR, no murmur, no edema Gastrointestinal (Abdomen): normal bowel sounds, soft, nontender, no hepatosplenomegaly Musculoskeletal: Pain on palpation of right calf Pain is reproducible in thigh when he puts pressure on his foot, no worse on palpation of his quadriceps Int/ext rotation of this hip without pain Skin: no rashes, warm and dry Neurologic: moves all extremities and awake; not confused Psychiatric: A+Ox3, euthymic affect Genitourinary: no CVA tenderness Results & Data Results & Data ([facility]) Vital Signs (Past 12 Hours) Vital Signs Temp Pulse Pulse Resp BP BP Pulse Ox 07/06/21 13:27 82 18 122/74 97 07/06/21 11:56 36.4 C 78 18 124/76 96 07/06/21 11:[address] lumbar spine w con CLINICAL HISTORY: Postoperative pain. COMPARISON STUDY: Lumbar spine MRI May 28, 2021. TECHNIQUE: Axial images of the lumbar spine were obtained following intravenous injection of 94 cc of Optiray 320 IV. Sagittal and coronal reconstructions were viewed. Automated exposure control was utilized for the study. A dose lowering technique was utilized adhering to the principles of ALARA. FINDINGS: Please note that the CT of the abdomen and pelvis will be reported separately. For purposes of numbering on this exam, the L5-S1 disc space is assigned to axial image 298 of 362. Note is made of an L3-L4 discectomy with interbody spacer placement. Posterior decompression is noted with bilateral pedicle screw fusion at L3 and L4. The hardware is intact. There are no unexpected radiopaque foreign bodies. Evaluation of the central canal and neural foramen is significantly compromised given CT technique and artifact from surgical hardware. There is a nondisplaced fracture of the left transverse process of L3. No additional lumbar spine fractures are noted. As expected, there is fluid and stranding within the operative bed. Right sacroiliac joint fusion is partially imaged. There is moderate disc space narrowing at L5-S1. Multilevel facet arthrosis is present. IMPRESSION: 1. Status post L3-L4 discectomy, posterior decompression and bilateral pedicle screw fusion. Hardware intact. Fluid within the operative bed which is expected in the early postoperative setting. 2. Nondiagnostic evaluation of the central canal and neural foramen given CT technique and artifact from hardware. 3. Nondisplaced fracture of the left transverse process of L3. Medications Administered ER Medications Given: NSS 500ml bolus Fentanyl 50 mcg IV x3 Dexamethasone 10mg IV Ondansetron 4mg IV ECG Indication: other Rate (beats per minute): 77 Rhythm: normal sinus Findings: no PVC Comparison ECG Date: from (June 30, 2021) Change: the following changes noted (PVC no longer present) Code Status & VTE Plan Code Status Full VTE Prophylaxis Plan VTE Prophylaxis will be ordered: No PG Care Time/CCT Total # of Minutes Spent Total Time Spent with Patient: Total time spent is greater than 50% in coordination of care (as documented) at patient's floor/unit and/or counseling patient: Coding Level of Care Code INT OBSERVATION CARE 50M LVL 2 Diagnoses Post-operative pain G89.18 Lumbar back pain with radiculopathy affecting right lower extremity M54.16 Infarction of kidney N28.0 Intractable back pain M54.9 BPH (benign prostatic hyperplasia) N40.0 Raynauds phenomenon I73.00 Raynaud?s-associated gangrene presence: without gangrene Fibromyalgia M79.7 (1) Raynauds phenomenon Raynaud?s-associated gangrene presence: without gangrene Qualified Code(s): I73.00 - Raynaud's syndrome without gangrene
[2021-07-07] MEDS: CHOLECALCIFEROL 1,000 UNITS 25 MCG TAB PO SCH (08:34)
[2021-07-07] MEDS: FERROUS SULFATE 325 MG TAB PO SCH (08:34)
[2021-07-07] MEDS: FINASTERIDE 5 MG TAB PO SCH (08:35)
[2021-07-07] MEDS: LOVASTATIN 20 MG TAB PO SCH (08:36)
[2021-07-07] MEDS: GABAPENTIN 300 MG CAP PO SCH ×2 (08:36→20:08)
[2021-07-07] MEDS: MULTIVITAMIN TAB PO SCH (08:37)
[2021-07-07] MEDS: CHOLESTYRAMINE LIGHT 4 GM PKT PO SCH ×2 (08:38→21:30)
[2021-07-07] MEDS: FLUTICASONE PROPIONATE NA SPR 16 GM BTL NAE SCH (08:38)
[2021-07-07] MEDS: ACETAMINOPHEN 500 MG TAB PO SCH ×3 (08:38→20:09)
[2021-07-07] MEDS: CALCIUM CARBONATE 500 MG CHEWABLE TAB PO PRN (08:38)
[2021-07-07] MEDS ORDERED: PANTOprazole 40 MG TAB PO SCH (09:00)
--- NOTE | 2021-07-07 10:34 | Orthopedic Consultation ---
Date of Consultation July 07, 2021 Assessment & Plan (1) Post-operative pain: Assessment status post lumbar depression fusion with radiculopathy. Plan at this time review of the CAT scan demonstrates no evidence of hardware migration. I suspect he has an acute radiculopathy secondary to localized swelling. If he does not improve over the next 24 to 48 hours I may consider an MRI of the lumbar spine for further anatomic detail. This may require exploration and removal of hematoma or seroma depending what we find. Nevertheless short course of rest and IV Decadron may be all that is necessary. I have encouraged him to transfer the chair today with assistance. History of Present Illness Reason for Consultation: Back and right leg pain Attending Physician: Peace Martin MD History of Present Illness This is a 81-year-old male known to me the status post lumbar decompression fusion L3-L4 a week ago. He had been discharged home and was doing nicely. Unfortunately Wednesday had a marked decline in status with pain in the right side rating into the right buttock and down the lateral right thigh. Markedly exacerbated with weightbearing. He is comfortable with lying supine. This morning he is somewhat improved lying in bed. Still marked limitation with weightbearing to the right lower extremity secondary to pain. He denies any numbness or tingling in his leg. At this point the pain management is effective. Allergies Allergy/AdvReac Type Severity Reaction Status Date / Time codeine Allergy Mild ITCHING Verified 07/06/21 13:57 misoprostol AdvReac Mild Diarrhea Verified 07/06/21 13:57 Home Medications Medication Instructions Recorded Confirmed Type multivitamin (Daily-Robinson) 1 tab PO QAM #30 tab 05/07/19 07/06/21 Rx diphenhydramine 25 1 tab PO HS PRN 09/28/19 07/06/21 History mg-acetaminophen 500 mg tablet (Tylenol PM Extra Strength) nystatin-triamcinolone 100,000 1 appln TOP TID PRN #60 gm 12/11/19 07/06/21 Rx unit/gram-0.1 % topical ointment cholecalciferol (vitamin D3) 125 125 mcg PO QAM 03/25/20 07/06/21 History mcg (5,000 unit) capsule ferrous sulfate 325 mg (65 mg 325 mg PO QAM 03/25/20 07/06/21 History iron) tablet finasteride 5 mg tablet 5 mg PO QAM #90 tab 06/27/20 07/06/21 Rx trazodone 100 mg tablet 100 mg PO DAILY #90 tab 02/06/21 07/06/21 Rx montelukast 10 mg tablet 10 mg PO QPM #90 tab 02/24/21 07/06/21 Rx (Singulair) gabapentin 300 mg capsule 300 mg PO BID #180 cap 02/27/21 07/06/21 Rx fluticasone propionate 50 1 spray INTRANASAL DAILY #15.8 ml 03/10/21 07/06/21 Rx mcg/actuation nasal spray,suspension (Allergy Relief (fluticasone)) cholestyramine (with sugar) 4 gram 4 g PO BID #378 gm 03/12/21 07/06/21 Rx oral powder esomeprazole magnesium 40 mg 40 mg PO DAILY #90 cap 03/21/21 07/06/21 Rx capsule,delayed release folic acid 1 mg tablet 6 mg PO QAM #540 tab 05/21/21 07/06/21 Rx baclofen 10 mg tablet 10 mg PO TID PRN #90 tab 05/22/21 07/06/21 Rx lovastatin 40 mg tablet 40 mg PO DAILY #90 tab 05/30/21 07/06/21 Rx oxycodone 5 mg tablet 5 mg PO Q6H PRN #30 tab 07/02/21 07/06/21 Rx tramadol 50 mg tablet 50 mg PO Q6H PRN #30 tab 07/02/21 07/06/21 Rx Patient History Medical History BPH (benign prostatic hyperplasia) Chronic gastroesophageal reflux disease Usually at night - well controlled with Nexium Degenerative disc disease Low back pain with radiation to LE and weakness 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 Bebeto Stanley- Open R SI joint fusion, placement of 25 mm bony allograft filled with infuse within the R SI joint, placement of 2 globus percutaneous SI joint screws both GONZÁLES-coated and filled with infuse History of arthroscopy of left shoulder History of cataract extraction with lens replacement RT/LEFT History of colonoscopy History of elbow surgery RT History of esophagogastroduodenoscopy (EGD) History of hemorrhoidectomy History of repair of rotator cuff RT/LEFT History of tooth extraction History of total hip arthroplasty RT History of total knee replacement RT/LEFT History of vasectomy History of vitrectomy LEFT Family History Unknown Diabetes High cholesterol Grandmother (Maternal) Diabetes Family history of diabetes mellitus Grandmother (Paternal) Diabetes Family history of diabetes mellitus Father Heart disease Cardiac disorder Myocardial infarction Mother Cancer Other No family history of adverse response to anesthesia Denies family history of Ovarian cancer Prostate cancer Breast cancer Colorectal cancer Social History Smoking Status: Former smoker Second Hand Exposure: No; Hx Alcohol Use: No Hx Substance Use: No Preferred Language: Lao Communication Ability: Effective Visual Impairment: No Limitations Hearing Ability: Use of Hearing Aid Aquatic Instructor Required: No Beliefs That Will Affect Care: None marital status: Current Living Situation: Spouse current occupational status: retired Feels Safe at Home: Yes Safety Concerns: Feels Safe At This Time Childhood Exposure to Second-Hand Smoke: Yes Dental Care, Regularly: Yes Physical Activity Frequency: Daily Seatbelt Use: always Sunscreen Use: No Assistive Devices: Glasses and Walker Assistive Devices Comment: Partials Physical Exam Physical Exam: On exam he does exhibit +5-5 bilateral plantar flexion dorsiflexion quadriceps. Sensory symmetric and intact to light touch and cold bilateral extremities. He does exhibit evidence of demonstrate some tension signs with straight leg raising on the right. He does have tenderness palpation of the right SI joint and right side of his lumbar spine with palpation. Results & Data ([facility]) Vital Signs (Past 12 Hours) Vital Signs Temp Pulse Resp BP Pulse Ox 07/07/21 05:43 36.7 C 79 16 119/73 94 07/06/21 22:48 36.4 C L 85 15 103/65 91
[2021-07-07] MEDS: dexAMETHasone 8 MG in SYRINGE 0 ML IV SCH (10:44)
[2021-07-07] MEDS ORDERED: FAMOTIDINE 20 MG TAB PO ONE (11:48)
[2021-07-07] MEDS: PANTOprazole 40 MG TAB PO SCH (20:08)
[2021-07-07] MEDS: traZODone HCL 100 MG TAB PO SCH (20:08)
[2021-07-07] MEDS: MONTELUKAST SODIUM 10 MG TABLET PO SCH (20:08)
--- NOTE | 2021-07-07 20:08 | Hospitalist Progress Note ---
Date of Service July 07, 2021 Assessment & Plan (1) Post-operative pain: Plan: Pain mainly on right thigh and radiating down, secondary to post-op edema likely causing acute radiculopathy Now completely resolved after 2 doses of IV Decadron US venous doppler RLE with chronic thrombus popliteal vein but no acute DVT -Appreciate Ortho Spine consult continue Decadron daily await further Ortho recs tomorrow (2) Lumbar back pain with radiculopathy affecting right lower extremity: Plan: As above (3) Infarction of kidney: Plan: Left renal infarct 2.5cm Renal function and UA normal, BPs well controlled, no flank pain or fevers---> asymptomatic and completely incidental finding Suspect hypercoagulability of being post-op from spine surgery with likely some underlying atherosclerosis as etiology No h/o Afib and in sinus rhythm here on ECG and by exam No need for intervention follow renal function in AM Previous hospitalist discussed with Dr Pool of Radiology--> infarct very small. Suspect atherosclerotic disease of small vessel. CT angiogram would not help given size of renal infarct. Start Aspirin 81mg po daily tomorrow if ok with Dr. Stanley from post-op stabdpoint Continue on statin (4) BPH (benign prostatic hyperplasia): Plan: Continue finasteride 5mg PO daily (5) Raynauds phenomenon: Plan: Noted history of this. On no specific medications. (6) Fibromyalgia: Plan: Continue gabapentin 300mg PO BID (7) Chronic gastroesophageal reflux disease: Plan: with breakthrough symptoms likely from high dose steroids increase PPI to bid and add Pepcid 20mg po x 1 now TUMs prn Plan: VTE Prophylaxis -ambulation Diet - regular Disposition -continued stay, likely to home tomorrow if pain remains resolved Admission and Anticipated Discharge Date Admission Date: July 06, 2021 Subjective Had increased acid indigestion overnight and this AM not relieved for long with TUMs. He then received Pepcid and it has resolved. He reports that since this AM, he was able to get OOB to the chair and to the bathroom and has had zero pain all day. Feeling so much better. Denies CP, SOB. Discussed his renal infarct and need for aspirin therapy. He has a h/o post-op DVT in RLE after TKA, but no other clots. Review of Systems Review of Systems: All systems reviewed & are unremarkable except as noted in HPI & below Physical Exam Constitutional: WD/WN, vitals as above Eyes: + anicteric sclerae ENMT: external ear and nose normal, oropharynx normal Neck: trachea midline, no thyromegaly Respiratory: normal respiratory effort, lungs clear to auscultation Cardiovascular: RRR, no murmur, no edema Chest (Breasts): Chest: normal inspection of chest Gastrointestinal (Abdomen): normal bowel sounds, soft, nontender, no hepatosplenomegaly Musculoskeletal: Extremities: extremities normal to inspection; no cyanosis and no clubbing Skin: no rashes, warm and dry Neurologic: moves all extremities and awake; no focal motor deficits Psychiatric: A+Ox3, euthymic affect Lymphatic: no lymphedema Results & Data Results & Data ([facility]) Vital Signs (Past 12 Hours) Vital Signs Temp Pulse Resp BP Pulse Ox 07/07/21 16:00 37 C 83 18 143/79 H 93 PG Care Time/CCT Total # of Minutes Spent Total Time Spent with Patient: Total time spent is greater than 50% in coordination of care (as documented) at patient's floor/unit and/or counseling patient: Coding Level of Care Code 35998 Subseq Obs Care Lvl 2 Diagnoses Post-operative pain G89.18 Lumbar back pain with radiculopathy affecting right lower extremity M54.16 Infarction of kidney N28.0 BPH (benign prostatic hyperplasia) N40.0 Raynauds phenomenon I73.00 Raynaud?s-associated gangrene presence: without gangrene Fibromyalgia M79.7 Chronic gastroesophageal reflux disease K21.9 (1) Raynauds phenomenon Raynaud?s-associated gangrene presence: without gangrene Qualified Code(s): I73.00 - Raynaud's syndrome without gangrene
[2021-07-08] MEDS: oxyCODONE HCL IR 5 MG TAB (IMMEDIATE RELEASE) PO PRN ×2 (06:24→12:19)
[2021-07-08 07:15] LABS: BUN Creatinine Ratio 25.6 (10-20); Calcium 9.1 mg/dl (8.5-10.1); Est GFR (African American) 99.5 ml/min; Est GFR (Non-African American) 85.9 ml/min
[2021-07-08] MEDS: ACETAMINOPHEN 500 MG TAB PO SCH ×2 (07:41→14:54)
[2021-07-08] MEDS: dexAMETHasone 8 MG in SYRINGE 0 ML IV SCH (07:41)
[2021-07-08] MEDS: CHOLECALCIFEROL 1,000 UNITS 25 MCG TAB PO SCH (07:41)
[2021-07-08] MEDS: FERROUS SULFATE 325 MG TAB PO SCH (07:42)
[2021-07-08] MEDS: LOVASTATIN 20 MG TAB PO SCH (07:42)
[2021-07-08] MEDS: CHOLESTYRAMINE LIGHT 4 GM PKT PO SCH (07:42)
[2021-07-08] MEDS: PANTOprazole 40 MG TAB PO SCH (07:43)
[2021-07-08] MEDS: GABAPENTIN 300 MG CAP PO SCH (07:43)
[2021-07-08] MEDS: FLUTICASONE PROPIONATE NA SPR 16 GM BTL NAE SCH (07:43)
[2021-07-08] MEDS: MULTIVITAMIN TAB PO SCH (07:44)
[2021-07-08] MEDS: FINASTERIDE 5 MG TAB PO SCH (07:44)
--- NOTE | 2021-07-08 11:54 | Electrocardiogram Report ---
Test Reason : Blood Pressure : / mmHG Vent. Rate : 077 BPM Atrial Rate : 077 BPM P-R Int : 182 ms QRS Dur : 092 ms QT Int : 404 ms P-R-T Axes : 066 050 054 degrees QTc Int : 457 ms Normal sinus rhythm Normal ECG When compared with ECG of 30-JUN-2021 09:08, Premature ventricular complexes are no longer Present Confirmed by Stephon Larkin ([id number]) on 07/08/2021 11:53:57 AM Referred By: REFERRED SELF Confirmed By:Stephon Larkin
--- NOTE | 2021-07-08 15:27 | Discharge Summary ---
Date of Service July 08, 2021 Admission HPI Per Admitting Provider Darius Brar is a 81 year old male who presents to the ER with right leg pain following his recent operation for lumbar disc herniation with radiculopathy performed on July 01. THe patient was initially doing well after his operation with some pain around his surgical scars but good relief from his left leg pain and weakness. He was doing well up until the last 2 days with progressively worsening right thigh pain on ambulation which resolves when he lies down. He is finding it hard to get comfortable in the bed currently. 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 He denies any calf pain. Pain in his thigh is severity 8/10. In the ER his CT A/P incidentally showed a small renal infarct. The patient reports no pain over the area. No change in his urine. He was referred to medicine for admission and ongoing management of post operative pain, left renal infarct and right radiculopathy. Principal Diagnosis Acute lumbar radiculopathy, left renal infarct Discharge Exam Constitutional WD/WN, vitals as above Eyes + anicteric sclerae Neck trachea midline, no thyromegaly Respiratory normal respiratory effort, lungs clear to auscultation Cardiovascular RRR, no murmur, no edema Vessels: dorsalis pedis pulses present no calf tenderness Chest (Breasts) Chest: normal inspection of chest Gastrointestinal (Abdomen) normal bowel sounds, soft, nontender, no hepatosplenomegaly Musculoskeletal Extremities: extremities normal to inspection; no cyanosis and no clubbing Skin no rashes, warm and dry Neurologic moves all extremities and awake; no focal motor deficits Psychiatric A+Ox3, euthymic affect Lymphatic no lymphedema Discharge Data Allergies Allergy/AdvReac Type Severity Reaction Status Date / Time codeine Allergy Mild ITCHING Verified 07/06/21 13:57 misoprostol AdvReac Mild Diarrhea Verified 07/06/21 13:57 Consultations 07/06/21 14:49 ED Decision to Admit Stat 07/07/21 07:58 Consult Orthopedic Surgery Routine Ordered Studies 07/06/21 11:28 CT abd pelvis IV con only Stat CT lumbar spine w con Stat 07/06/21 15:33 US venous doppler LE RT Stat Hospital Course (1) Post-operative pain: Pain mainly on right thigh and radiating down, secondary to post-op edema likely causing acute radiculopathy Now completely resolved after 2 doses of IV Decadron--> continue on Medrol Dose pack after discharge. 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 Suspect atherosclerotic disease of small vessel. CT angiogram would not help given size of renal infarct. Start Aspirin 81mg po daily-this is ok from Dr. 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 On no specific medications. (6) Fibromyalgia: Continue gabapentin 300mg PO BID (7) Chronic gastroesophageal reflux disease: with breakthrough symptoms likely from high dose steroids-reoslved with Pepcid x 1 continue PPI VTE Prophylaxis -ambulation Diet - regular Disposition -dc to home Total Time Total Time Spent Total Time Spent (In Minutes): 35 min Discharge Plan Discharge Items Patient Disposition: Home - Self-Care Reason For Visit: INTRACTABLE BACK PAIN Discharge Diagnosis: Acute lumbar radiculopathy, Left renal infarct Condition on Discharge: Good Activity: Resume your previous activity Activity Comment: as per post-operative instructions from back surgery Non-emergency contact: Primary Care Provider and Surgeon Call non-emergency contact if: you have any medication questions, your symptoms worsen, your pain is not controlled, your pain is worsening, you have a fever and your temperature is above 101 Follow-up/Referrals: Gibran Mancuso III, CRNP [Primary Care Provider] - (Follow up within 1-2 weeks) Bebeto Stanley DO [Surgeon] - (Follow up as previously scheduled ) Diet: Regular Addtl Attending Provider Instructions: Continue the Medrol dose pack of steroids to reduce inflammation. You were also found to have a small "infarct" of your left kidney which is an area that didn't get blood supply. This was likely due to a small blood clot in a tiny blood vessel of the kidney. Sometimes this can happen as a result of thickened blood after having surgery. Please start taking a baby aspirin 81mg once daily to help prevent this from happening again. If you develop worsening left mid back pain, blood in the urine, elevated blood pressures, please let your doctor know right away. Follow up with your PCP within 1-2 weeks. Pending Studies at Discharge: No Stand-Alone Forms: My [facility] Medications and DC Order Prescriptions: New aspirin 81 mg tablet,delayed release (DR/EC) 81 mg PO DAILY Qty: 30 RF: 0 methylprednisolone [Medrol (Benjamin)] 4 mg tablets,dose pack See Rx Instructions .ROUTE .COMPLEX Qty: 21 RF: 0 Continued nystatin-triamcinolone 100,000-0.1 unit/gram-% ointment 1 appln TOP TID PRN (Reason: rash) Qty: 60 RF: 1 trazodone 100 mg tablet 100 mg PO DAILY Qty: 90 RF: 1 montelukast [Singulair] 10 mg tablet 10 mg PO QPM Qty: 90 RF: 1 gabapentin 300 mg capsule 300 mg PO BID Qty: 180 RF: 1 fluticasone propionate [Allergy Relief (fluticasone)] 50 mcg/actuation spray,suspension 1 spray intranasal DAILY Qty: 15.8 RF: 2 cholestyramine (with sugar) 4 gram powder 4 g PO BID Qty: 378 RF: 5 esomeprazole magnesium 40 mg capsule,delayed release(DR/EC) 40 mg PO DAILY Qty: 90 RF: 1 folic acid 1 mg tablet 6 mg PO QAM Qty: 540 RF: 3 baclofen 10 mg tablet 10 mg PO TID PRN (Reason: Muscle Spasm) Qty: 90 RF: 2 lovastatin 40 mg tablet 40 mg PO DAILY Qty: 90 RF: 3 diphenhydramine-acetaminophen [Tylenol PM Extra Strength] 25-500 mg tablet 1 tab PO HS PRN (Reason: Sleep) RF: 0 cholecalciferol (vitamin D3) 125 mcg (5,000 unit) capsule 125 mcg PO QAM RF: 0 ferrous sulfate 325 mg (65 mg iron) tablet 325 mg PO QAM RF: 0 finasteride 5 mg tablet 5 mg PO QAM Qty: 90 RF: 3 multivitamin [Daily-Robinson] Tablet 1 tab PO QAM Qty: 30 RF: 0 tramadol 50 mg tablet 50 mg PO Q6H PRN (Reason: pain, moderate) Qty: 30 RF: 0 oxycodone 5 mg tablet 5 mg PO Q6H PRN (Reason: pain, severe) Qty: 30 RF: 0 Discharge Orders: Discharge Order (Routine); Ordered 07/08/21 Ordered By: Peace Martin Admission Data Admit Date/Time: 07/06/21 15:55 Attending Provider: Peace Martin Admit Provider: Jordan Polanco Primary Care Provider: Gibran Mancuso III Other Providers: Jordan Polanco ; [facility] ; Bebeto Stanley Coding Level of Care Code 71046 OBS Care - Discharge Diagnoses Post-operative pain G89.18 Lumbar back pain with radiculopathy affecting right lower extremity M54.16 Infarction of kidney N28.0 BPH (benign prostatic hyperplasia) N40.0 Raynauds phenomenon I73.00 Raynaud?s-associated gangrene presence: without gangrene Fibromyalgia M79.7 Chronic gastroesophageal reflux disease K21.9
== END 2021-07-08 16:00 | disposition home or self-care (01) ==
LOC: ED 11:21 → 3N 11:21 → SUATTDRO 15:55 → 3N 18:16

== ENCOUNTER 2025-07-06 11:56 | Observation (INO) ==
--- NOTE | 2025-07-06 12:31 | Emergency Department Note ---
History of Present Illness General Chief complaint: Illness Stated complaint: FEVER POSSIBLE PNENONIA Time Seen by Provider: 07/06/25 12:05 History of Present Illness Maximum Pain Intensity: 0 This is a an 85-year-old male who presents to the emergency department via private vehicle with complaints of "fever, cough, possible pneumonia". History obtained from both patient and son at bedside. Patient notes for the past month he has felt unwell. However as of recent now notes chills, cough and diffuse fatigue. He notes some blurred vision bilaterally today as well. He denies any headache. No neck pain. No chest pain but does note some shortness of breath with the cough. Reportedly temperature earlier today was 101 F. Patient does not intermittent abdominal pain as well. No dysuria. Home Medications Medication Instructions Recorded Confirmed Type multivitamin (Daily-Robinson tablet) 1 tab PO QAM #30 tabs 05/07/19 07/06/25 Rx cholecalciferol (vitamin D3) 125 125 mcg PO QAM 03/25/20 07/06/25 History mcg (5,000 unit) capsule ferrous sulfate 325 mg (65 mg 325 mg PO QAM 03/25/20 07/06/25 History iron) tablet aspirin 81 mg tablet,delayed 81 mg PO QAM 10/17/21 07/06/25 History release calcium 600 mg (as 1 tab PO DAILY 08/02/23 07/06/25 History carbonate)-vitamin D3 10 mcg (400 unit) tablet (Calcium with Vitamin D) tamsulosin 0.4 mg capsule 0.4 mg PO DAILY #90 caps 08/01/24 07/06/25 Rx gabapentin 300 mg capsule 300 mg PO TID #270 caps 11/08/24 07/06/25 Rx hydrocortisone 2.5 % topical cream 1 applic TN DAILY PRN pain #30 11/20/24 07/06/25 Rx with perineal applicator grams (Proctosol HC) vibegron 75 mg tablet 75 mg PO DAILY #30 tabs 12/11/24 07/06/25 Rx baclofen 10 mg tablet 10 mg PO BID Muscle Spasm 04/25/25 07/06/25 History furosemide 20 mg tablet 20 mg PO DAILY 04/25/25 07/06/25 History folic acid 1 mg tablet 6 mg (6 x 1 mg) PO QAM #540 tabs 06/01/25 07/06/25 Rx trazodone 100 mg tablet 100 mg PO HS #90 tabs 06/27/25 07/06/25 Rx cholestyramine (with sugar) 4 gram 4 ea PO BIDM 07/06/25 07/06/25 History oral powder diclofenac sodium 75 mg 75 mg PO BID 07/06/25 07/06/25 History tablet,delayed release esomeprazole magnesium 40 mg 40 mg PO QPM 07/06/25 07/06/25 History capsule,delayed release lovastatin 40 mg tablet 40 mg PO QPM 07/06/25 07/06/25 History nystatin-triamcinolone 100,000 1 applic topical BID PRN NEEDED 07/06/25 07/06/25 History unit/g-0.1 % topical cream benzonatate 100 mg capsule 100 mg PO TID PRN cough 3 days #15 07/07/25 Rx caps doxycycline monohydrate 100 mg 100 mg PO BID 7 days #14 caps 07/07/25 Rx capsule guaifenesin 600 mg tablet, 600 mg PO Q12 3 days #6 tabs 07/07/25 Rx extended release 12 hr (Mucinex) Allergies Allergy/AdvReac Type Severity Reaction Status Date / Time codeine Allergy Intermediate ITCHING Verified 07/06/25 15:36 oxycodone AdvReac Severe extreme Verified 07/06/25 15:36 confusion and delirium misoprostol AdvReac Intermediate Diarrhea Verified 07/06/25 15:36 Past Med/Surg History Problem List (Updated 07/07/25 @ 07:00 by Bravo Hopkins PA-C) CAP (community acquired pneumonia) (Acute) Lesion of bladder Urethral stricture Chronic pain syndrome Lymphedema (Chronic) Painful total knee replacement, left Arthritis of wrist, left Pre-procedural laboratory examination Lumbar radicular pain Adjacent segment disease of lumbar spine with history of fusion procedure Back problem Arthritis Sacroiliitis (Chronic) History of lumbar spinal fusion Lumbosacral facet joint syndrome Lumbar post-laminectomy syndrome Painful bladder spasm Left inguinal hernia Dysuria Urge incontinence of urine Scalp lesion Prostate cancer (Chronic 02/25/23) Prostate nodule with urinary obstruction Elevated prostate specific antigen (PSA) Constipation (Chronic) Depression (Chronic) Fibromyalgia (Chronic) Hypercholesterolemia (Chronic) Insomnia (Chronic) Enlarged prostate with lower urinary tract symptoms (LUTS) (Chronic) Raynauds phenomenon (Chronic) Spinal stenosis Lumbar back pain with radiculopathy affecting right lower extremity (Acute) Chronic gastroesophageal reflux disease (Chronic) Usually at night - well controlled with Nexium Venous insufficiency (chronic) (peripheral) (Chronic) Medical History Hx of blood clots History of colon polyps Renal infarction left - asymptomatic, incidental finding Infarction of kidney Lumbar disc herniation with radiculopathy 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 Osteoarthritis Hydronephrosis BPH (benign prostatic hyperplasia) Degenerative disc disease Low back pain with radiation to LE and weakness 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) s/p long car ride - on AC x several months than d/c No issues since that time Hyperlipidemia Surgical History History of carpal tunnel release History of lumbar fusion H/O surgical fusion joint 01/20/21 Dr. Bebeto Stanley- Open R SI joint fusion, placement of 25 mm bony allograft filled with infuse within the R SI joint, placement of 2 globus percutaneous SI joint screws both GONZÁLES-coated and filled with infuse History of elbow surgery RT History of colonoscopy History of esophagogastroduodenoscopy (EGD) History of total hip arthroplasty RT History of tooth extraction History of vasectomy History of hemorrhoidectomy History of vitrectomy LEFT History of arthroscopy of left shoulder History of cataract extraction with lens replacement RT/LEFT History of total knee replacement RT/LEFT History of repair of rotator cuff RT/LEFT Family History Unknown Diabetes High cholesterol Grandmother (Maternal) Diabetes Family history of diabetes mellitus Grandmother (Paternal) Diabetes Family history of diabetes mellitus Father Heart disease Cardiac disorder Myocardial infarction Mother Cancer Sister Cancer Other No family history of adverse response to anesthesia Denies family history of Ovarian cancer Prostate cancer Breast cancer Colorectal cancer Social History Smoking Status: Never smoker Tobacco Type: Smokeless Tobacco (Dip or Chew) Age Started Using Tobacco: 12; Age Quit Using Tobacco: 52; packs per day: 1; Second Hand Exposure: No; Do You Dip or Chew Tobacco: No; Hx Alcohol Use: No Hx Substance Use: No Preferred Language: Ivorian Communication Ability: Effective Visual Impairment: No Limitations Hearing Ability: Hard of Hearing Cash Controller Required: No Beliefs That Will Affect Care: None marital status: Life Partner Current Living Situation: Spouse current occupational status: retired 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[employer], 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 How many Children do You have: 2 Feels Safe at Home: Yes Childhood Exposure to Second-Hand Smoke: Yes Diet: regular caffeine: Yes during the past year weight has: remained stable Dental Care, Regularly: Yes Physical Activity Frequency: Does not Exercise Seatbelt Use: always Sunscreen Use: No Assistive Devices: Cane, Denture - Upper, Denture - Lower, Glasses, Hearing Aid - Bilateral, Hospital Bed and Walker Review of Systems A total of 10 systems reviewed and were otherwise negative Physical Exam Vital Signs Vital Signs - 24 hr 07/06/25 11:59 07/06/25 12:08 07/06/25 12:15 Temperature 37.5 C Temperature Source Oral Pulse Rate 100 H 93 H Pulse Rate [Apical] Pulse Rate from SpO2 Sensor Respiratory Rate 20 Respiratory Effort / Characteristics Non-Labored Spontaneous Respiratory Depth Normal Respiratory Pattern Regular Blood Pressure 109/58 L 113/52 L Blood Pressure [Left Arm] Blood Pressure Mean 75 62 Blood Pressure Mean [Left Arm] Blood Pressure Position [Left Arm] Pulse Oximetry 93 Oxygen Delivery Method Room Air Sepsis Recent Fever Within 48 Hours No Sepsis New/Unexplained Change in Mental Status N/A Sepsis Action Taken by Nursing No Action Required 07/06/25 12:20 07/06/25 12:20 07/06/25 12:24 Temperature Temperature Source Pulse Rate 85 Pulse Rate [Apical] 89 Pulse Rate from SpO2 Sensor 83 Respiratory Rate 18 18 Respiratory Effort / Characteristics Non-Labored Spontaneous Respiratory Depth Normal Respiratory Pattern Regular Blood Pressure Blood Pressure [Left Arm] 113/52 L Blood Pressure Mean Blood Pressure Mean [Left Arm] 72 Blood Pressure Position [Left Arm] Semi-fowlers Pulse Oximetry 93 93 92 Oxygen Delivery Method Room Air Room Air Sepsis Recent Fever Within 48 Hours Sepsis New/Unexplained Change in Mental Status Sepsis Action Taken by Nursing 07/06/25 12:36 07/06/25 12:45 07/06/25 13:00 Temperature Temperature Source Pulse Rate 87 84 Pulse Rate [Apical] Pulse Rate from SpO2 Sensor 81 Respiratory Rate 21 17 Respiratory Effort / Characteristics Respiratory Depth Respiratory Pattern Blood Pressure 103/64 Blood Pressure [Left Arm] Blood Pressure Mean 75 Blood Pressure Mean [Left Arm] Blood Pressure Position [Left Arm] Pulse Oximetry 92 Oxygen Delivery Method Sepsis Recent Fever Within 48 Hours Sepsis New/Unexplained Change in Mental Status Sepsis Action Taken by Nursing 07/06/25 13:00 07/06/25 13:12 07/06/25 13:39 Temperature Temperature Source Pulse Rate 78 78 Pulse Rate [Apical] Pulse Rate from SpO2 Sensor 74 78 Respiratory Rate 21 16 Respiratory Effort / Characteristics Respiratory Depth Respiratory Pattern Blood Pressure 103/64 Blood Pressure [Left Arm] Blood Pressure Mean 75 Blood Pressure Mean [Left Arm] Blood Pressure Position [Left Arm] Pulse Oximetry 96 96 Oxygen Delivery Method Sepsis Recent Fever Within 48 Hours Sepsis New/Unexplained Change in Mental Status Sepsis Action Taken by Nursing 07/06/25 13:51 07/06/25 13:57 07/06/25 14:00 Temperature Temperature Source Pulse Rate 76 76 Pulse Rate [Apical] Pulse Rate from SpO2 Sensor 75 76 Respiratory Rate 19 28 H Respiratory Effort / Characteristics Respiratory Depth Respiratory Pattern Blood Pressure 112/59 L Blood Pressure [Left Arm] Blood Pressure Mean 80 Blood Pressure Mean [Left Arm] Blood Pressure Position [Left Arm] Pulse Oximetry 93 95 Oxygen Delivery Method Sepsis Recent Fever Within 48 Hours Sepsis New/Unexplained Change in Mental Status Sepsis Action Taken by Nursing 07/06/25 14:00 07/06/25 14:03 07/06/25 14:30 Temperature Temperature Source Pulse Rate 73 Pulse Rate [Apical] 74 Pulse Rate from SpO2 Sensor 71 Respiratory Rate 17 18 Respiratory Effort / Characteristics Non-Labored Spontaneous Respiratory Depth Normal Respiratory Pattern Regular Blood Pressure 112/59 L Blood Pressure [Left Arm] 110/58 L Blood Pressure Mean 80 Blood Pressure Mean [Left Arm] 75 Blood Pressure Position [Left Arm] Pulse Oximetry 94 95 Oxygen Delivery Method Room Air Sepsis Recent Fever Within 48 Hours Sepsis New/Unexplained Change in Mental Status Sepsis Action Taken by Nursing 07/06/25 14:30 07/06/25 14:30 07/06/25 14:30 Temperature Temperature Source Pulse Rate Pulse Rate [Apical] Pulse Rate from SpO2 Sensor Respiratory Rate Respiratory Effort / Characteristics Respiratory Depth Respiratory Pattern Blood Pressure 110/58 L 110/58 L 110/58 L Blood Pressure [Left Arm] Blood Pressure Mean 87 87 87 Blood Pressure Mean [Left Arm] Blood Pressure Position [Left Arm] Pulse Oximetry Oxygen Delivery Method Sepsis Recent Fever Within 48 Hours Sepsis New/Unexplained Change in Mental Status Sepsis Action Taken by Nursing 07/06/25 14:30 07/06/25 14:51 07/06/25 15:00 Temperature Temperature Source Pulse Rate 75 76 94 H Pulse Rate [Apical] Pulse Rate from SpO2 Sensor 77 77 Respiratory Rate 12 15 24 Respiratory Effort / Characteristics Respiratory Depth Respiratory Pattern Blood Pressure Blood Pressure [Left Arm] Blood Pressure Mean Blood Pressure Mean [Left Arm] Blood Pressure Position [Left Arm] Pulse Oximetry 92 94 Oxygen Delivery Method Sepsis Recent Fever Within 48 Hours Sepsis New/Unexplained Change in Mental Status Sepsis Action Taken by Nursing 07/06/25 15:00 07/06/25 15:00 07/06/25 15:00 Temperature Temperature Source Pulse Rate Pulse Rate [Apical] Pulse Rate from SpO2 Sensor Respiratory Rate Respiratory Effort / Characteristics Respiratory Depth Respiratory Pattern Blood Pressure 100/57 L 100/57 L 100/57 L Blood Pressure [Left Arm] Blood Pressure Mean 63 63 63 Blood Pressure Mean [Left Arm] Blood Pressure Position [Left Arm] Pulse Oximetry Oxygen Delivery Method Sepsis Recent Fever Within 48 Hours Sepsis New/Unexplained Change in Mental Status Sepsis Action Taken by Nursing 07/06/25 15:00 07/06/25 15:18 07/06/25 15:21 Temperature Temperature Source Pulse Rate 71 74 Pulse Rate [Apical] Pulse Rate from SpO2 Sensor 74 72 Respiratory Rate 16 19 Respiratory Effort / Characteristics Respiratory Depth Respiratory Pattern Blood Pressure 100/57 L Blood Pressure [Left Arm] Blood Pressure Mean 63 Blood Pressure Mean [Left Arm] Blood Pressure Position [Left Arm] Pulse Oximetry 95 95 Oxygen Delivery Method Sepsis Recent Fever Within 48 Hours Sepsis New/Unexplained Change in Mental Status Sepsis Action Taken by Nursing 07/06/25 15:24 07/06/25 15:30 07/06/25 15:30 Temperature Temperature Source Pulse Rate 70 Pulse Rate [Apical] Pulse Rate from SpO2 Sensor 73 Respiratory Rate 16 Respiratory Effort / Characteristics Respiratory Depth Respiratory Pattern Blood Pressure 98/53 L 98/53 L Blood Pressure [Left Arm] Blood Pressure Mean 76 76 Blood Pressure Mean [Left Arm] Blood Pressure Position [Left Arm] Pulse Oximetry 95 Oxygen Delivery Method Sepsis Recent Fever Within 48 Hours Sepsis New/Unexplained Change in Mental Status Sepsis Action Taken by Nursing 07/06/25 15:51 07/06/25 16:03 07/06/25 16:12 Temperature Temperature Source Pulse Rate 71 74 68 Pulse Rate [Apical] Pulse Rate from SpO2 Sensor 68 74 71 Respiratory Rate 16 23 22 Respiratory Effort / Characteristics Respiratory Depth Respiratory Pattern Blood Pressure Blood Pressure [Left Arm] Blood Pressure Mean Blood Pressure Mean [Left Arm] Blood Pressure Position [Left Arm] Pulse Oximetry 94 94 94 Oxygen Delivery Method Sepsis Recent Fever Within 48 Hours Sepsis New/Unexplained Change in Mental Status Sepsis Action Taken by Nursing 07/06/25 16:24 07/06/25 16:26 07/06/25 16:36 Temperature Temperature Source Pulse Rate 66 70 69 Pulse Rate [Apical] Pulse Rate from SpO2 Sensor 69 69 Respiratory Rate 24 15 Respiratory Effort / Characteristics Respiratory Depth Respiratory Pattern Blood Pressure Blood Pressure [Left Arm] Blood Pressure Mean Blood Pressure Mean [Left Arm] Blood Pressure Position [Left Arm] Pulse Oximetry 91 93 Oxygen Delivery Method Sepsis Recent Fever Within 48 Hours Sepsis New/Unexplained Change in Mental Status Sepsis Action Taken by Nursing VITAL SIGNS - Vital signs and nursing notes were reviewed. Stable and afebrile. GENERAL -85-year-old male appearing his stated age who is in no acute distress. Communicates well with provider and answers questions appropriately. SKIN - Without rashes. No meningeal or petechial rash. HEAD - NC/AT. EYES - PERRL with EOMI bilaterally. Sclera anicteric. EARS - No deformities of external structures noted on gross examination bilaterally. NOSE - Midline and without cyanosis. No epistaxis or purulent drainage noted. MOUTH/OROPHARYNX - Without perioral cyanosis. NECK - Neck with FROM. No nuchal rigidity. LUNGS -mildly diminished breath sounds with mild crackles CARDIAC - RRR ABDOMEN - Abdominal contour normal without pulsations or visible masses. BS normoactive all four quadrants. No tenderness, palpable masses, hepatosplenomegaly, or ascites noted. EXTREMITIES - No clubbing or peripheral cyanosis. There are wraps to the bilateral lower extremities noted. +5/5 strength noted in UE/LE bilaterally. NEUROLOGIC - Cranial nerves II through XII grossly intact. PSYCH -alert, oriented and pleasant on exam Course Administered Medications Discontinued Medications Aspirin (Aspirin 81 Mg Ectab) 81 mg PO QAM [facility] Stop: 08/06/25 08:59 Last Admin: 07/07/25 08:29 Dose: 81 mg Documented By: TREVOR Baclofen (Baclofen 10 Mg Tab) 10 mg PO BID [facility] Stop: 08/05/25 20:59 Last Admin: 07/07/25 08:29 Dose: 10 mg Documented By: Admin: 07/06/25 20:57 Dose: 10 mg Documented By: GINNY Calcium/Vitamin D (Calcium 600mg + Vit D 400 Iu Tab) 1 tab PO DAILY [facility] Stop: 08/06/25 08:59 Last Admin: 07/07/25 08:29 Dose: 1 tab Documented By: TREVOR Cholestyramine Resin (Cholestyramine Light 4 Gm Pkt) 4 gm PO BIDM [facility] Stop: 08/05/25 19:57 Last Admin: 07/07/25 08:28 Dose: 4 gm Documented By: Admin: 07/06/25 20:57 Dose: Not Given Documented By: GINNY Diclofenac Sodium (Diclofenac Sodium 75 Mg Tabcr) 75 mg PO BID [facility] Stop: 08/05/25 20:59 Last Admin: 07/07/25 08:29 Dose: 75 mg Documented By: Admin: 07/06/25 20:57 Dose: 75 mg Documented By: GINNY Doxycycline Hyclate (Doxycycline Hyclate 100 Mg Cap) 100 mg PO NOW STA Stop: 07/06/25 13:57 Last Admin: 07/06/25 14:54 Dose: 100 mg Documented By: JOVANI Ferrous Sulfate (Ferrous Sulfate 325 Mg Tab) 325 mg PO QAM [facility] Stop: 08/06/25 08:59 Last Admin: 07/07/25 08:29 Dose: 325 mg Documented By: TREVOR Folic Acid (Folic Acid 1 Mg Tab) 6 mg PO QAM [facility] Stop: 08/06/25 08:59 Last Admin: 07/07/25 08:28 Dose: 6 mg Documented By: TREVOR Furosemide (Furosemide 20 Mg Tab) 20 mg PO DAILY [facility] Stop: 08/06/25 08:59 Last Admin: 07/07/25 08:29 Dose: 20 mg Documented By: TREVOR Gabapentin (Gabapentin 300 Mg Cap) 300 mg PO TID [facility] Stop: 08/05/25 20:59 Last Admin: 07/07/25 08:29 Dose: 300 mg Documented By: Admin: 07/06/25 20:57 Dose: 300 mg Documented By: GINNY Guaifenesin (Guaifenesin 600 Mg Tabcr) 600 mg PO Q12 [facility] Stop: 08/05/25 20:59 Last Admin: 07/07/25 08:29 Dose: 600 mg Documented By: Admin: 07/06/25 20:57 Dose: 600 mg Documented By: GINNY Sodium Chloride (Nss) 500 mls @ 125 mls/hr IV .Q4H ONE Stop: 07/06/25 16:30 Last Infusion: 07/06/25 14:15 Dose: Infused Documented By: Admin: 07/06/25 12:52 Dose: 125 mls/hr Documented By: JOVANI Ceftriaxone Sodium (Rocephin) 2,000 mg in 50 mls @ 100 mls/hr IV NOW STA Stop: 07/06/25 14:25 Last Infusion: 07/06/25 15:41 Dose: Infused Documented By: Admin: 07/06/25 14:55 Dose: 100 mls/hr Documented By: JOVANI Doxycycline Hyclate 100 mg/ (Dextrose) 100 mls @ 50 mls/hr IV Q12H [facility] Stop: 07/12/25 08:59 Last Infusion: 07/07/25 11:11 Dose: Infused Documented By: Admin: 07/07/25 08:34 Dose: 50 mls/hr Documented By: TREVOR Ioversol (Optiray 320 125ml) 118 ml IV ONCE ONE Stop: 07/06/25 14:49 Last Admin: 07/06/25 14:48 Dose: 118 ml Documented By: TESSY Lovastatin (Lovastatin 20 Mg Tab) 40 mg PO QPM [facility] Stop: 08/05/25 20:59 Last Admin: 07/06/25 20:57 Dose: 40 mg Documented By: GINNY Multivitamins (Multivitamin Tab) 1 tab PO QAM [facility] Stop: 08/06/25 08:59 Last Admin: 07/07/25 08:29 Dose: 1 tab Documented By: TREVOR Pantoprazole Sodium (Pantoprazole 40 Mg Tab) 40 mg PO QPM [facility] Stop: 08/05/25 20:59 Last Admin: 07/06/25 20:57 Dose: 40 mg Documented By: GINNY Tamsulosin HCl (Tamsulosin Hcl 0.4 Mg Cap) 0.4 mg PO DAILY [facility] Stop: 08/06/25 08:59 Last Admin: 07/07/25 08:29 Dose: 0.4 mg Documented By: TREVOR Trazodone HCl (Trazodone Hcl 100 Mg Tab) 100 mg PO HS [facility] Stop: 08/05/25 20:59 Last Admin: 07/06/25 20:57 Dose: 100 mg Documented By: GINNY Vibegron (Vibegron 75 Mg Tab) 75 mg PO DAILY [facility] Stop: 08/06/25 08:59 Last Admin: 07/07/25 08:29 Dose: 75 mg Documented By: TREVOR Vitamin D (Cholecalciferol 125 Mcg (5,000 Units) Tab) 125 mcg PO QAM [facility] Stop: 08/06/25 08:59 Last Admin: 07/07/25 08:29 Dose: 125 mcg Documented By: TREVOR Medical Decision Making Laboratory Data 07/07/25 05:35 07/07/25 05:35 Lab Results 07/06/25 07/06/25 07/06/25 Range/Units 12:16 12:36 12:46 WBC 12.95 H (4.8-10.8) K/ul RBC 4.13 L (4.70-6.10) M/uL Hgb 12.7 L (14.0-18.0) g/dl Hct 38.4 L (42.0-52.0) % MCV 93.0 (80.0-100.0) fL MCH 30.8 (25.0-34.0) pg MCHC 33.1 (32.0-36.0) g/dL RDW Std Deviation 46.1 (36.4-46.3) fL RDW Coeff of Joce 13.4 (11.5-14.5) % Plt Count 159 (130-400) K/uL MPV 9.7 (9.4-12.4) fL Immature Gran % (Auto) 0.5 % Neut % (Auto) 82.6 % Lymph % (Auto) 4.1 % [place] % (Auto) 12.4 % Eos % (Auto) 0.2 % Baso % (Auto) 0.2 % Neut # (Auto) 10.69 H (1.40-6.50) K/uL Lymph # (Auto) 0.53 L (1.20-3.40) K/uL [place] # (Auto) 1.61 H (0.11-0.59) K/uL Eos # (Auto) 0.02 (0.00-0.50) K/uL Baso # (Auto) 0.03 (0.00-0.20) K/uL Immature Gran # (Auto) 0.07 (0.01-0.20) K/uL Polychromasia 1+ PT 10.6 (9.0-12.0) Seconds INR 1.0 (0.9-1.1) APTT 25 (21-31) Seconds PTT Ratio 0.9 Sodium 135 L (136-145) mmol/L Potassium 3.6 (3.5-5.1) mmol/L Chloride 99 (98-107) mmol/L Carbon Dioxide 28 (21-32) mmol/L Anion Gap 8 (3-11) BUN 21 (6-23) mg/dl Creatinine 0.87 (0.6-1.4) mg/dl Est Cr Clr Drug Dosing 66.4 ml/min eGFR 85.61 BUN/Creatinine Ratio 24.1 H (10-20) Glucose 92 (70-99(Fasting)) mg/dl Lactate 0.8 (0.4-2.0) mmol/L Calcium 8.9 (8.6-10.3) mg/dl Magnesium 1.9 (1.7-2.4) mg/dl Total Bilirubin 1.2 H (0.2-1.0) mg/dl AST 15 (13-39) U/L ALT 12 (7-52) U/L Alkaline Phosphatase 54 (34-104) U/L Troponin I High Sens 7.5 (0-20) pg/ml Total Protein 6.1 (6.0-8.3) gm/dl Albumin 3.4 (3.4-5.0) gm/dl Globulin 2.7 (2.5-4.0) gm/dl Albumin/Globulin Ratio 1.3 (0.9-2) Procalcitonin 0.40 (0-0.5) ng/ml TSH 1.077 (0.300-4.500) uIu/ml Urine Color Yellow Urine Appearance Clear (Clear) Urine pH 5.0 (4.5-7.5) Ur Specific [place] 1.013 (1.000-1.030) Urine Protein Negative (Negative) Urine Glucose (UA) Negative (Negative) Urine Ketones Negative (Negative) Urine Blood Negative (Negative) Urine Nitrite Negative (Negative) Urine Bilirubin Negative (Negative) Urine Urobilinogen Negative (Negative) Ur Leukocyte Esterase Negative (Negative) Urine Comment Adenovirus (PCR) Not Detected (NotDetected) Anaplasma Smear See Comment Babesia Smear See Comment B. pertussis DNA (PCR) Not Detected (NotDetected) B.parapertussis DNA PCR Not Detected (NotDetected) Lyme Disease Screen Negative (Negative) C. pneumoniae DNA (PCR) Not Detected (NotDetected) Coronavirus OC43 (PCR) Not Detected (NotDetected) Coronavirus HKU1 (PCR) Not Detected (NotDetected) Coronavirus 229E (PCR) Not Detected (NotDetected) SARS-CoV-2 (PCR) Not Detected (NotDetected) Coronavirus NL63 (PCR) Not Detected (NotDetected) Human Metapneumovir PCR Not Detected (NotDetected) Influenza Type A (PCR) Not Detected (NotDetected) Influenza Type B (PCR) Not Detected (NotDetected) M. pneumoniae (PCR) Not Detected (NotDetected) Parainfluenza 1 (PCR) Not Detected (NotDetected) Parainfluenza 2 (PCR) Not Detected (NotDetected) Parainfluenza 3 (PCR) Not Detected (NotDetected) Parainfluenza 4 (PCR) Not Detected (NotDetected) RSV (PCR) Not Detected (NotDetected) Entero/Rhino (PCR) DETECTED A (NotDetected) Imaging Data Radiologist's Impression: Chest X-Ray 07/06/25 12:16 XR chest 1V portable CLINICAL HISTORY: fever COMPARISON STUDY: 06/09/2023 FINDINGS: Heart size and pulmonary vasculature are normal. Inspiration is shallow. No consolidation or pleural effusion seen. No pneumothorax. IMPRESSION: Shallow inspiration with no pneumonia seen. ACT 112: Negative or not required by law. Electronically signed by: Shaun Marques M.D. 07/06/2025 12:[address] 07/06/25 12:23 CT head/brain wo con CLINICAL HISTORY: vision change. TECHNIQUE: Multiple axial CT images of the head were obtained without contrast. A dose lowering technique was utilized adhering to the principles of ALARA. CT DOSE: 625.8 mGy.cm COMPARISON: 08/15/2023 FINDINGS: No intracranial hemorrhage seen. No mass effect, midline shift, or hydrocephalus. No skull fracture seen. Visualized paranasal sinuses and mastoid air cells are clear. IMPRESSION: No acute findings. ACT 112: Negative or not required by law. The above report was generated using voice recognition software. It may contain grammatical, syntax or spelling errors. Electronically signed by: Shaun Marques M.D. 07/06/2025 1:37 PM Abdomen/Pelvis CT 07/06/25 13:56 CT SCAN OF THE ABDOMEN AND PELVIS WITH IV CONTRAST CLINICAL HISTORY: Abdominal pain. Fever. Cough. COMPARISON STUDY: CT of the abdomen and pelvis December 15, 2023. TECHNIQUE: Following the IV administration of 118 cc of Optiray 320, CT scan of the abdomen and pelvis is performed from the lung bases to the proximal femora. Images are reviewed in the axial, sagittal, and coronal planes. IV contrast was administered without complication. A dose lowering technique was utilized adhering to the principles of ALARA. CT DOSE: 1946.93 mGy.cm FINDINGS: Moderate alveolar opacities within visualized portions of the right lower and right middle lobes are better depicted on the chest CT which will be reported separately. There is no pneumatosis, free air or portal venous gas. There are no suspicious hepatic lesions. A subcentimeter medial segment hepatic cyst is benign. Spleen, adrenal glands and pancreas are unremarkable. Low- attenuation bilateral renal lesions represent cysts. There is no hydronephrosis. There is no evidence for a bowel obstruction. Colonic diverticulosis is noted. No evidence for acute diverticulitis. There is no lymphadenopathy. Incidental note is made of a right hip arthroplasty, right SI joint fusion and postoperative findings within lumbar spine. No acute fractures are identified within the pelvis, hips or lumbar spine. IMPRESSION: 1. Right lower lobe and right middle lobe alveolar opacities consistent with pneumonia, better depicted on the chest CT which will be reported separately. 2. No acute process within the abdomen or pelvis. 3. Colonic diverticulosis. No evidence for acute diverticulitis. 3. No bowel obstruction. ACT 112: Negative or not required by law. Electronically signed by: Damian Pool M.D. 07/06/2025 3:01 PM Chest CTA 07/06/25 13:56 CT ANGIOGRAM OF THE CHEST CLINICAL HISTORY: Cough. Weakness. Fever. COMPARISON STUDY: Chest x-ray dated 07/06/2025. Chest CT dated 08/15/2023. TECHNIQUE: Following the IV administration of 118 cc of Optiray 320, CT angiogram of the chest was performed from the upper abdomen to the thoracic inlet utilizing the pulmonary embolus protocol. Images are reviewed in the axial, sagittal, and coronal planes. 3-D MIPS images are created and assessed. IV contrast was administered without complication. A dose lowering technique was utilized adhering to the principles of ALARA. FINDINGS: Thyroid: Imaged portions of the thyroid gland are normal in size and attenuation. Thoracic aorta: There is atherosclerotic calcification of the thoracic aorta, which is normal in caliber and demonstrates standard 3-vessel arch anatomy. No dissection is seen. Pulmonary vasculature: The pulmonary trunk is normal in caliber. There are no filling defects identified in main, lobar, or segmental pulmonary branches to suggest pulmonary embolus. Heart: The heart is mildly enlarged and without pericardial effusion. There is coronary artery atherosclerosis. Lungs and pleural spaces: There is mild emphysematous change. No pleural effusion is identified. Diffuse micronodularity seen throughout both lungs. Multifocal patchy groundglass consolidation is seen throughout the right lung, greatest in the right upper and middle lobes. This is consistent with a nonspecific infectious/inflammatory pneumonitis. Scarring/atelectasis is noted at the lung bases. There is diffuse peribronchial thickening. The trachea and central airways are clear. Mediastinum: There is no mediastinal lymphadenopathy. Marcie: Clear. Axillae: There is no axillary lymphadenopathy. Upper abdomen: There is a small hiatal hernia. Partially visualized upper abdominal viscera is otherwise within normal limits. Skeletal structures: The skeletal structures are osteopenic. 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 Arthritic change is seen in the shoulders. There are chronic/healed left-sided rib fractures. No lytic or blastic bony lesions are seen. IMPRESSION: 1. There is no evidence of pulmonary embolus in the main, lobar, or segmental pulmonary arteries. 2. Cardiomegaly and mild emphysema. 3. Multifocal patchy ground glass consolidation throughout the right lung is consistent with pneumonia. 4. There is diffuse peribronchial thickening with micronodularity throughout the upper lobes. The appearance favors a bronchitis/bronchiolitis. A follow-up chest CT in 3-4 months time is recommended to document resolution of these findings. 5. No pleural effusion is seen. 6. Additional findings as above. ACT 112: Negative or not required by law. Electronically signed by: Hollis Cardenas M.D. 07/06/2025 3:05 PM MDM Narrative Patient was seen and evaluated as above in room A09b. Review was performed of triage nursing notes and vital signs. I did review pertinent previous visits and patient history. After obtaining a thorough history and physical examination the above work up was performed. Patient presents to us today for evaluation of the above symptoms. He has a cough. He has borderline soft blood pressure but no hypotension. EKG reveals sinus rhythm with PACs at a rate of 77 bpm. QTc 482. QRS 96. No ST elevation on this rhythm tracing Options of care were discussed with the patient and son at bedside. IV access was established. Labs were drawn. There is leukocytosis 12.95. Mild anemia with hemoglobin of 12.7. Coags normal. Mild hyponatremia 135. No evidence of kidney or liver failure. Mild T. bili elevation at 1.2. Troponin within normal range. Procalcitonin within normal range as is a lactate making sepsis less likely. Urinalysis without sign of infection. BioFire panel positive for rhinovirus. This may have been the preceding viral event which now led to a superimposed bacterial infection. Suspicion is for pneumonia but chest x-ray without obvious finding. Will proceed with CT imaging for further characterization and to further evaluate for infectious etiology. Will proceed with CT scan of the chest as well as abdomen/pelvis noting the patient's symptoms. Results as above. There is evidence of multifocal pneumonia. Additional findings as above. Patient was already ordered ceftriaxone plus oral Doxy for broad pulmonary coverage. Patient did receive IV fluids here. Initially ordered 500 mL at 125 mL/h but changed this to a bolus as the pressure was on the softer side. I also be cautious with fluids as they did note patient has some fluid retention in the extremities. Plan is for medical admission. Case discussed with the hospitalist service. Please refer to further documentation regarding his stay. Additional 500 mL bolus ordered with repeat pressure 98/53. GCS: 15 In the evaluation and treatment of this patient the following differential diagnoses were entertained: Pneumonia, ME, PE, pneumothorax, sepsis, among others. Attending Attestation: I Luis F Shields MD I have reviewed the advanced practitioner's documentation and agree with the plan of care. I accept the responsibility for the associated risk of managing the patient. I performed a substantive portion of the visit including involvement in all aspects of medical decision making. Impression & Plan CAP (community acquired pneumonia) Discharge Plan Visit Data Chief Complaint: Illness Stated Complaint: FEVER POSSIBLE PNENONIA ED Provider: Luis F Shields ED Midlevel Provider: Bravo Hopkins Discharge Problem: CAP (community acquired pneumonia) Patient Disposition: Admitted As Inpatient Condition: Good Discharge Instructions Interventions: ED Discharge Assessment Last Done: 07/06/25 18:30
[2025-07-06 12:46] LABS: Appearance Urine Clear (Clear); Glucose Urine UA Negative (Negative)
[2025-07-06] MEDS: SODIUM CHLORIDE 0.9% 500 ML IV ONE (12:52)
[2025-07-06 12:53] LABS: Hematocrit (blood only) 38.4 % (42.0-52.0); Hemoglobin 12.7 g/dl (14.0-18.0); Immature Granulocytes # (auto) 0.07 K/uL (0.01-0.20); Immature Granulocytes % (auto) 0.5 %; Mean Corpuscular Hemoglobin 30.8 pg (25.0-34.0); Mean Corpuscular Volume 93.0 fL (80.0-100.0); Platelet Count 159 K/uL (130-400); RDW Standard Deviation 46.1 fL (36.4-46.3); Red Blood Count 4.13 M/uL (4.70-6.10); White Blood Count 12.95 K/ul (4.8-10.8)
--- NOTE | 2025-07-06 13:01 | XRay Report ---
XR chest 1V portable CLINICAL HISTORY: fever COMPARISON STUDY: 06/09/2023 FINDINGS: Heart size and pulmonary vasculature are normal. Inspiration is shallow. No consolidation o r pleural effusion seen. No pneumothorax. IMPRESSION: Shallow inspiration with no pneumonia seen. ACT 112: Negative or not required by law. Electronically signed by: Shaun Marques M.D. 07/06/2025 12:59 PM
[2025-07-06 13:13] LABS: Alanine Aminotransferase 12.0 U/L (7-52); Albumin Globulin Ratio 1.3 (0.9-2); Albumin Level 3.4 gm/dl (3.4-5.0); Alkaline Phosphatase 54.0 U/L (34-104); Anion Gap 8.0 (3-11); Bilirubin,Total 1.2 mg/dl (0.2-1.0); Blood Urea Nitrogen 21.0 mg/dl (6-23); Calcium 8.9 mg/dl (8.6-10.3); Carbon Dioxide 28.0 mmol/L (21-32); Chloride 99.0 mmol/L (98-107); Creatinine Clr Calc Pharmacy 66.4 ml/min; Globulin 2.7 gm/dl (2.5-4.0); Glucose 92.0 mg/dl (70-99(Fasting)); Magnesium 1.9 mg/dl (1.7-2.4); Potassium 3.6 mmol/L (3.5-5.1); Sodium 135.0 mmol/L (136-145); Total Protein 6.1 gm/dl (6.0-8.3)
[2025-07-06 13:19] LABS: Procalcitonin 0.40 ng/ml (0-0.5)
[2025-07-06 13:22] LABS: Polychromasia 1+
[2025-07-06 13:29] LABS: Thyroid Stimulating Hormone 1.077 uIu/ml (0.300-4.500)
[2025-07-06 13:35] LABS: INR 1.0 (0.9-1.1); Partial Thromboplastin Time 25 Seconds (21-31); Prothrombin Time 10.6 Seconds (9.0-12.0)
--- NOTE | 2025-07-06 13:38 | CT Scan Report ---
CT head/brain wo con CLINICAL HISTORY: vision change. TECHNIQUE: Multiple axial CT images of the head were obtained without contrast. A dose lowering tech nique was utilized adhering to the principles of ALARA. CT DOSE: 625.8 mGy.cm COMPARISON: 08/15/2023 FINDINGS: No intracranial hemorrhage seen. No mass effect, midline shift, or hydrocephalus. No skull fracture seen. Visualized paranasal sinuses and mastoid air cells are clear. IMPRESSION: No acute findings. ACT 112: Negative or not required by law. The above report was generated using voice recognition software. It may contain grammatical, syntax o r spelling errors. Electronically signed by: Shaun Marques M.D. 07/06/2025 1:37 PM
[2025-07-06 13:44] LABS: Lyme Screen Rflx Confirmation Negative (Negative)
[2025-07-06 13:45] LABS: Chlamydia pneumoniae PCR Not Detected (NotDetected); Coronavirus 229E PCR Not Detected (NotDetected); Coronavirus CoV-2 (COVID19)PCR Not Detected (NotDetected); Coronavirus HKU1 PCR Not Detected (NotDetected); Coronavirus NL63 PCR Not Detected (NotDetected); Coronavirus OC43PCR Not Detected (NotDetected); Human Metapneumovirus PCR Not Detected (NotDetected); Parainfluenza Virus 1 PCR Not Detected (NotDetected); Parainfluenza Virus 2 PCR Not Detected (NotDetected); Parainfluenza Virus 3 PCR Not Detected (NotDetected); Parainfluenza Virus 4 PCR Not Detected (NotDetected); Respiratory Syncytial VirusPCR Not Detected (NotDetected); Rhinovirus/Enterovirus PCR DETECTED (NotDetected)
[2025-07-06] MEDS: OPTIRAY 320 125ml IV ONE (14:48)
[2025-07-06] MEDS: DOXYCYCLINE HYCLATE 100 MG CAP PO STA (14:54)
[2025-07-06] MEDS: cefTRIAXone SODIUM 2,000 MG/50 ML BAG IV STA (14:55)
--- NOTE | 2025-07-06 15:02 | CT Scan Report ---
CT SCAN OF THE ABDOMEN AND PELVIS WITH IV CONTRAST CLINICAL HISTORY: Abdominal pain. Fever. Cough. COMPARISON STUDY: CT of the abdomen and pelvis December 15, 2023. TECHNIQUE: Following the IV administration of 118 cc of Optiray 320, CT scan of the abdomen and pelv is is performed from the lung bases to the proximal femora. Images are reviewed in the axial, sagitta l, and coronal planes. IV contrast was administered without complication. A dose lowering technique w as utilized adhering to the principles of ALARA. CT DOSE: 1946.93 mGy.cm FINDINGS: Moderate alveolar opacities within visualized portions of the right lower and right middle lobes are better depicted on the chest CT which will be reported separately. There is no pneumatosis, free air or portal venous gas. There are no suspicious hepatic lesions. A subcentimeter medial segme nt hepatic cyst is benign. Spleen, adrenal glands and pancreas are unremarkable. Low-attenuation bila teral renal lesions represent cysts. There is no hydronephrosis. There is no evidence for a bowel obs truction. Colonic diverticulosis is noted. No evidence for acute diverticulitis. There is no lymphade nopathy. Incidental note is made of a right hip arthroplasty, right SI joint fusion and postoperative findings within lumbar spine. No acute fractures are identified within the pelvis, hips or lumbar sp ine. IMPRESSION: 1. Right lower lobe and right middle lobe alveolar opacities consistent with pneumonia, better depict ed on the chest CT which will be reported separately. 2. No acute process within the abdomen or pelvis. 3. Colonic diverticulosis. No evidence for acute diverticulitis. 3. No bowel obstruction. ACT 112: Negative or not required by law. Electronically signed by: Damian Pool M.D. 07/06/2025 3:01 PM
--- NOTE | 2025-07-06 15:06 | CT Scan Report ---
CT ANGIOGRAM OF THE CHEST CLINICAL HISTORY: Cough. Weakness. Fever. COMPARISON STUDY: Chest x-ray dated 07/06/2025. Chest CT dated 08/15/2023. TECHNIQUE: Following the IV administration of 118 cc of Optiray 320, CT angiogram of the chest was pe rformed from the upper abdomen to the thoracic inlet utilizing the pulmonary embolus protocol. Images are reviewed in the axial, sagittal, and coronal planes. 3-D MIPS images are created and assessed. I V contrast was administered without complication. A dose lowering technique was utilized adhering to the principles of ALARA. FINDINGS: Thyroid: Imaged portions of the thyroid gland are normal in size and attenuation. Thoracic aorta: There is atherosclerotic calcification of the thoracic aorta, which is normal in dori mario and demonstrates standard 3-vessel arch anatomy. No dissection is seen. Pulmonary vasculature: The pulmonary trunk is normal in caliber. There are no filling defects identif ied in main, lobar, or segmental pulmonary branches to suggest pulmonary embolus. Heart: The heart is mildly enlarged and without pericardial effusion. There is coronary artery athero sclerosis. Lungs and pleural spaces: There is mild emphysematous change. No pleural effusion is identified. Diff use micronodularity seen throughout both lungs. Multifocal patchy groundglass consolidation is seen t hroughout the right lung, greatest in the right upper and middle lobes. This is consistent with a non specific infectious/inflammatory pneumonitis. Scarring/atelectasis is noted at the lung bases. There is diffuse peribronchial thickening. The trachea and central airways are clear. Mediastinum: There is no mediastinal lymphadenopathy. Marcie: Clear. Axillae: There is no axillary lymphadenopathy. Upper abdomen: There is a small hiatal hernia. Partially visualized upper abdominal viscera is otherw ise within normal limits. Skeletal structures: The skeletal structures are osteopenic. Degenerative changes noted in the thorac ic spine with evidence of DISH. Arthritic change is seen in the shoulders. There are chronic/healed l eft-sided rib fractures. No lytic or blastic bony lesions are seen. IMPRESSION: 1. There is no evidence of pulmonary embolus in the main, lobar, or segmental pulmonary arteries. 2. Cardiomegaly and mild emphysema. 3. Multifocal patchy ground glass consolidation throughout the right lung is consistent with pneumoni a. 4. There is diffuse peribronchial thickening with micronodularity throughout the upper lobes. The stephanie earance favors a bronchitis/bronchiolitis. A follow-up chest CT in 3-4 months time is recommended to document resolution of these findings. 5. No pleural effusion is seen. 6. Additional findings as above. ACT 112: Negative or not required by law. Electronically signed by: Hollis Cardenas M.D. 07/06/2025 3:05 PM
--- NOTE | 2025-07-06 15:59 | History & Physical Report ---
Date of Service July 06, 2025 Assessment & Plan (1) CAP (community acquired pneumonia): (2) Chronic pain syndrome: (3) Lymphedema: (4) Lumbar radicular pain: (5) Arthritis: (6) Sacroiliitis: (7) Prostate cancer: (8) Fibromyalgia: (9) Raynauds phenomenon: (10) Chronic gastroesophageal reflux disease: (11) Venous insufficiency (chronic) (peripheral): (12) Hx of blood clots: (13) Osteoarthritis: Plan #community-acquired pneumonia #bacterial superinfection on viral URI - Rocephin and doxycycline initiated in the emergency department - will continue IV doxycycline, send MRSA swab - trend CRP and procal - atypical/nonconsolidated distribution - respiratory therapy consult, admit MedSurg, continuous pulse oximetry, albuterol every 2 hours as needed - add Mucinex - Tessalon Perles for cough #chronic venous stasis changes/lymphedema - wraps in place, elevate legs in the evening - continue Lasix 20 mg daily - early ambulation if tolerated #GERD - continue PPI #osteoarthritis #chronic pain - continue baclofen diclofenac and gabapentin #hyperlipidemia continue statin #history of BPH/prostate cancer - continue tamsulosin #depression/anxiety - will continue his trazodone #FEN - regular diet, fluid bolus in the emergency department, will monitor #CODE STATUS - full code per his wishes. Discussed with the patient and his son at the bedside at the time of admission to the emergency department History of Present Illness Chief Complaint: Shortness of breath, weakness Primary Care Provider: Gibran Mancuso, III, HYDROGRAPHER 85-year-old male history of osteoarthritis with multiple orthopedic procedures, history of prostate cancer status posttreatment, nonactive, depres ariela, fibromyalgia, Raynaud's phenomena, GERD, chronic venous insufficiency presents to the emergency department with a 1 week history of mild URI symptoms and a 12-hour history of progressive malaise, weakness, cough, chest pressure, fevers and chills. Patient reports that he has been under quite a bit of stress over the last month because his had a stroke was transferred to [place] there for 8 days is now been within the home but has had substantial disability. Has had mild URI symptoms for about a week this morning went up and went to meet some friends at [employer] which is typical for him states that after he woke up he was not feeling all that well had a lot of shaking chills febrile feeling but that intermittently improved he drove himself to [employer] and at that time had very severe symptoms felt as though he might even blackout. He summoned to help and had somebody bring him to his home and he was brought here for evaluation. Initial evaluation in the emergency department consistent with rhinovirus/enterovirus infection with multifocal pneumonia noted on CT scan. He was given Rocephin and doxycycline, fluids for mildly decreased blood pressure and referred to admission for ongoing respiratory support, antibiotic therapy and stabilization of his blood pressures. Allergies Allergy/AdvReac Type Severity Reaction Status Date / Time codeine Allergy Intermediate ITCHING Verified 07/06/25 15:36 oxycodone AdvReac Severe extreme Verified 07/06/25 15:36 confusion and delirium misoprostol AdvReac Intermediate Diarrhea Verified 07/06/25 15:36 Home Medications Medication Instructions Recorded Confirmed Type multivitamin (Daily-Robinson tablet) 1 tab PO QAM #30 tabs 05/07/19 07/06/25 Rx cholecalciferol (vitamin D3) 125 125 mcg PO QAM 03/25/20 07/06/25 History mcg (5,000 unit) capsule ferrous sulfate 325 mg (65 mg 325 mg PO QAM 03/25/20 07/06/25 History iron) tablet aspirin 81 mg tablet,delayed 81 mg PO QAM 10/17/21 07/06/25 History release calcium 600 mg (as 1 tab PO DAILY 08/02/23 07/06/25 History carbonate)-vitamin D3 10 mcg (400 unit) tablet (Calcium with Vitamin D) tamsulosin 0.4 mg capsule 0.4 mg PO DAILY #90 caps 08/01/24 07/06/25 Rx gabapentin 300 mg capsule 300 mg PO TID #270 caps 11/08/24 07/06/25 Rx hydrocortisone 2.5 % topical cream 1 applic SD DAILY PRN pain #30 11/20/24 07/06/25 Rx with perineal applicator grams (Proctosol HC) vibegron 75 mg tablet 75 mg PO DAILY #30 tabs 12/11/24 07/06/25 Rx baclofen 10 mg tablet 10 mg PO BID Muscle Spasm 04/25/25 07/06/25 History furosemide 20 mg tablet 20 mg PO DAILY 04/25/25 07/06/25 History folic acid 1 mg tablet 6 mg (6 x 1 mg) PO QAM #540 tabs 06/01/25 07/06/25 Rx trazodone 100 mg tablet 100 mg PO HS #90 tabs 06/27/25 07/06/25 Rx cholestyramine (with sugar) 4 gram 4 ea PO BIDM 07/06/25 07/06/25 History oral powder diclofenac sodium 75 mg 75 mg PO BID 07/06/25 07/06/25 History tablet,delayed release esomeprazole magnesium 40 mg 40 mg PO QPM 07/06/25 07/06/25 History capsule,delayed release lovastatin 40 mg tablet 40 mg PO QPM 07/06/25 07/06/25 History nystatin-triamcinolone 100,000 1 applic topical BID PRN NEEDED 07/06/25 07/06/25 History unit/g-0.1 % topical cream Past Med/Surg History Problem List (Updated 07/06/25 @ 17:22 by Marcelino Phipps MD) CAP (community acquired pneumonia) Lesion of bladder Urethral stricture Chronic pain syndrome Lymphedema (Chronic) Painful total knee replacement, left Arthritis of wrist, left Pre-procedural laboratory examination Lumbar radicular pain Adjacent segment disease of lumbar spine with history of fusion procedure Back problem Arthritis Sacroiliitis (Chronic) History of lumbar spinal fusion Lumbosacral facet joint syndrome Lumbar post-laminectomy syndrome Painful bladder spasm Left inguinal hernia Dysuria Urge incontinence of urine Scalp lesion Prostate cancer (Chronic 02/25/23) Prostate nodule with urinary obstruction Elevated prostate specific antigen (PSA) Constipation (Chronic) Depression (Chronic) Fibromyalgia (Chronic) Hypercholesterolemia (Chronic) Insomnia (Chronic) Enlarged prostate with lower urinary tract symptoms (LUTS) (Chronic) Raynauds phenomenon (Chronic) Spinal stenosis Lumbar back pain with radiculopathy affecting right lower extremity (Acute) Chronic gastroesophageal reflux disease (Chronic) Usually at night - well controlled with Nexium Venous insufficiency (chronic) (peripheral) (Chronic) Medical History Hx of blood clots History of colon polyps Renal infarction left - asymptomatic, incidental finding Infarction of kidney Lumbar disc herniation with radiculopathy 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 Osteoarthritis Hydronephrosis BPH (benign prostatic hyperplasia) Degenerative disc disease Low back pain with radiation to LE and weakness 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) s/p long car ride - on AC x several months than d/c No issues since that time Hyperlipidemia Surgical History History of carpal tunnel release History of lumbar fusion H/O surgical fusion joint 01/20/21 Dr. Bebeto Stanley- Open R SI joint fusion, placement of 25 mm bony allograft filled with infuse within the R SI joint, placement of 2 globus percutaneous SI joint screws both GONZÁLES-coated and filled with infuse History of elbow surgery RT History of colonoscopy History of esophagogastroduodenoscopy (EGD) History of total hip arthroplasty RT History of tooth extraction History of vasectomy History of hemorrhoidectomy History of vitrectomy LEFT History of arthroscopy of left shoulder History of cataract extraction with lens replacement RT/LEFT History of total knee replacement RT/LEFT History of repair of rotator cuff RT/LEFT Family History Unknown Diabetes High cholesterol Grandmother (Maternal) Diabetes Family history of diabetes mellitus Grandmother (Paternal) Diabetes Family history of diabetes mellitus Father Heart disease Cardiac disorder Myocardial infarction Mother Cancer Sister Cancer Other No family history of adverse response to anesthesia Denies family history of Ovarian cancer Prostate cancer Breast cancer Colorectal cancer Social History Smoking Status: Former smoker Tobacco Type: Smokeless Tobacco (Dip or Chew) Age Started Using Tobacco: 12; Age Quit Using Tobacco: 52; packs per day: 1; Second Hand Exposure: No; Do You Dip or Chew Tobacco: No; Hx Alcohol Use: Yes Alcohol type: wine Alcohol Intake Frequency: Monthly or Less Hx Substance Use: No Preferred Language: Turkmen Communication Ability: Effective Visual Impairment: No Limitations Hearing Ability: Hard of Hearing Saw Man Required: No Beliefs That Will Affect Care: None marital status: Life Partner Current Living Situation: Spouse current occupational status: retired 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[employer], [employer] How many Children do You have: 2 Feels Safe at Home: Yes Childhood Exposure to Second-Hand Smoke: Yes Diet: regular caffeine: Yes during the past year weight has: remained stable Dental Care, Regularly: Yes Physical Activity Frequency: Does not Exercise Seatbelt Use: always Sunscreen Use: No Assistive Devices: Glasses and Hearing Aid - Bilateral Review of Systems Constitutional: See HPI for constitutional symptoms Eyes: no vision change Respiratory: cough, mild shortness of breath, pleuritic style anterior chest pain Cardiovascular: Additional Comments: no PND, no substernal chest pain, no palpitations Gastrointestinal: no nausea vomiting Genitourinary: no dysuria, no urinary frequency or no urinary hesitancy Musculoskeletal: chronic lower extremity edema no interval changes Integumentary: no pallor or rash Neurologic: generalized weakness as noted in HPI otherwise no focal deficits Physical Exam Constitutional: WD/WN, vitals as above Eyes: PERRL, conjunctivae normal, anicteric sclerae ENMT: external ear and nose normal, oropharynx normal Respiratory: sonorous rhonchi on the left side, minimal expiratory phase wheezing, good air movement throughout with no air trapping or prolongation of expiratory phase Cardiovascular: regular rate and rhythm no murmurs rubs or gallops Gastrointestinal (Abdomen): mild tenderness localized to the right upper quadrant, no underlying palpable mass. No guarding or rebound Musculoskeletal: chronic venous stasis wraps in place bilaterally Skin: no pallor rash or discoloration Neurologic: alert and oriented x 3, no focal deficits. No dysmetria or dysarthria Results & Data Results & Data Vital Signs (Past 12 Hours) Vital Signs Temp Pulse Pulse Resp BP BP Pulse Ox 07/06/25 14:30 74 18 110/58 L 95 07/06/25 13:12 78 21 96 07/06/25 13:00 103/64 07/06/25 13:00 103/64 07/06/25 12:45 84 17 92 07/06/25 12:36 87 21 07/06/25 12:24 85 18 92 07/06/25 12:20 93 07/06/25 12:20 89 18 113/52 L 93 07/06/25 12:15 93 H 07/06/25 12:08 113/52 L 07/06/25 11:59 37.5 C 100 H 20 109/58 L 93 O2 Del Method 07/06/25 14:30 Room Air 07/06/25 13:12 07/06/25 13:00 07/06/25 13:00 07/06/25 12:45 07/06/25 12:36 07/06/25 12:24 07/06/25 12:20 Room Air 07/06/25 12:20 Room Air 07/06/25 12:15 07/06/25 12:08 07/06/25 11:59 Room Air Laboratory Results 07/06/25 14:07 Aerobic Blood Culture - Pending Blood Anaerobic Blood Culture - Pending 07/06/25 12:36 Aerobic Blood Culture - Pending Blood Anaerobic Blood Culture - Pending 07/06/25 07/06/25 07/06/25 12:46 12:36 12:16 WBC 12.95 H RBC 4.13 L Hgb 12.7 L Hct 38.4 L MCV 93.0 MCH 30.8 MCHC 33.1 RDW Std Deviation 46.1 RDW Coeff of Joce 13.4 Plt Count 159 MPV 9.7 Immature Gran % (Auto) 0.5 Neut % (Auto) 82.6 Lymph % (Auto) 4.1 Tripp % (Auto) 12.4 Eos % (Auto) 0.2 Baso % (Auto) 0.2 Neut # (Auto) 10.69 H Lymph # (Auto) 0.53 L Tripp # (Auto) 1.61 H Eos # (Auto) 0.02 Baso # (Auto) 0.03 Immature Gran # (Auto) 0.07 Polychromasia 1+ PT 10.6 INR 1.0 APTT 25 PTT Ratio 0.9 Sodium 135 L Potassium 3.6 Chloride 99 Carbon Dioxide 28 Anion Gap 8 BUN 21 Creatinine 0.87 Est Cr Clr Drug Dosing 66.4 eGFR 85.61 BUN/Creatinine Ratio 24.1 H Glucose 92 Lactate 0.8 Calcium 8.9 Magnesium 1.9 Total Bilirubin 1.2 H AST 15 ALT 12 Alkaline Phosphatase 54 Troponin I High Sens 7.5 Total Protein 6.1 Albumin 3.4 Globulin 2.7 Albumin/Globulin Ratio 1.3 Procalcitonin 0.40 TSH 1.077 Urine Color Yellow Urine Appearance Clear Urine pH 5.0 Ur Specific [place] 1.013 Urine Protein Negative Urine Glucose (UA) Negative Urine Ketones Negative Urine Blood Negative Urine Nitrite Negative Urine Bilirubin Negative Urine Urobilinogen Negative Ur Leukocyte Esterase Negative Urine Comment Adenovirus (PCR) Not Detected Anaplasma Smear See Comment Babesia Smear See Comment B. pertussis DNA (PCR) Not Detected B.parapertussis DNA PCR Not Detected Lyme Disease Screen Negative C. pneumoniae DNA (PCR) Not Detected Coronavirus OC43 (PCR) Not Detected Coronavirus HKU1 (PCR) Not Detected Coronavirus 229E (PCR) Not Detected SARS-CoV-2 (PCR) Not Detected Coronavirus NL63 (PCR) Not Detected Human Metapneumovir PCR Not Detected Influenza Type A (PCR) Not Detected Influenza Type B (PCR) Not Detected M. pneumoniae (PCR) Not Detected Parainfluenza 1 (PCR) Not Detected Parainfluenza 2 (PCR) Not Detected Parainfluenza 3 (PCR) Not Detected Parainfluenza 4 (PCR) Not Detected RSV (PCR) Not Detected Entero/Rhino (PCR) DETECTED A Diagnostic Findings Chest X-Ray 07/06/25 12:16 XR chest 1V portable CLINICAL HISTORY: fever COMPARISON STUDY: 06/09/2023 FINDINGS: Heart size and pulmonary vasculature are normal. Inspiration is shallow. No consolidation or pleural effusion seen. No pneumothorax. IMPRESSION: Shallow inspiration with no pneumonia seen. ACT 112: Negative or not required by law. Electronically signed by: Shaun Marques M.D. 07/06/2025 12:[address] 07/06/25 12:23 CT head/brain wo con CLINICAL HISTORY: vision change. TECHNIQUE: Multiple axial CT images of the head were obtained without contrast. A dose lowering technique was utilized adhering to the principles of ALARA. CT DOSE: 625.8 mGy.cm COMPARISON: 08/15/2023 FINDINGS: No intracranial hemorrhage seen. No mass effect, midline shift, or hydrocephalus. No skull fracture seen. Visualized paranasal sinuses and mastoid air cells are clear. IMPRESSION: No acute findings. ACT 112: Negative or not required by law. The above report was generated using voice recognition software. It may contain grammatical, syntax or spelling errors. Electronically signed by: Shaun Marques M.D. 07/06/2025 1:37 PM Abdomen/Pelvis CT 07/06/25 13:56 CT SCAN OF THE ABDOMEN AND PELVIS WITH IV CONTRAST CLINICAL HISTORY: Abdominal pain. Fever. Cough. COMPARISON STUDY: CT of the abdomen and pelvis December 15, 2023. TECHNIQUE: Following the IV administration of 118 cc of Optiray 320, CT scan of the abdomen and pelvis is performed from the lung bases to the proximal femora. Images are reviewed in the axial, sagittal, and coronal planes. IV contrast was administered without complication. A dose lowering technique was utilized adhering to the principles of ALARA. CT DOSE: 1946.93 mGy.cm FINDINGS: Moderate alveolar opacities within visualized portions of the right lower and right middle lobes are better depicted on the chest CT which will be reported separately. There is no pneumatosis, free air or portal venous gas. There are no suspicious hepatic lesions. A subcentimeter medial segment hepatic cyst is benign. Spleen, adrenal glands and pancreas are unremarkable. Low- attenuation bilateral renal lesions represent cysts. There is no hydronephrosis. There is no evidence for a bowel obstruction. Colonic diverticulosis is noted. No evidence for acute diverticulitis. There is no lymphadenopathy. Incidental note is made of a right hip arthroplasty, right SI joint fusion and postoperative findings within lumbar spine. No acute fractures are identified within the pelvis, hips or lumbar spine. IMPRESSION: 1. Right lower lobe and right middle lobe alveolar opacities consistent with pneumonia, better depicted on the chest CT which will be reported separately. 2. No acute process within the abdomen or pelvis. 3. Colonic diverticulosis. No evidence for acute diverticulitis. 3. No bowel obstruction. ACT 112: Negative or not required by law. Electronically signed by: Damian Pool M.D. 07/06/2025 3:01 PM Chest CTA 07/06/25 13:56 CT ANGIOGRAM OF THE CHEST CLINICAL HISTORY: Cough. Weakness. Fever. COMPARISON STUDY: Chest x-ray dated 07/06/2025. Chest CT dated 08/15/2023. TECHNIQUE: Following the IV administration of 118 cc of Optiray 320, CT angiogram of the chest was performed from the upper abdomen to the thoracic inlet utilizing the pulmonary embolus protocol. Images are reviewed in the axial, sagittal, and coronal planes. 3-D MIPS images are created and assessed. IV contrast was administered without complication. A dose lowering technique was utilized adhering to the principles of ALARA. FINDINGS: Thyroid: Imaged portions of the thyroid gland are normal in size and attenuation. Thoracic aorta: There is atherosclerotic calcification of the thoracic aorta, which is normal in caliber and demonstrates standard 3-vessel arch anatomy. No dissection is seen. Pulmonary vasculature: The pulmonary trunk is normal in caliber. There are no filling defects identified in main, lobar, or segmental pulmonary branches to suggest pulmonary embolus. Heart: The heart is mildly enlarged and without pericardial effusion. There is coronary artery atherosclerosis. Lungs and pleural spaces: There is mild emphysematous change. No pleural effusion is identified. Diffuse micronodularity seen throughout both lungs. Multifocal patchy groundglass consolidation is seen throughout the right lung, greatest in the right upper and middle lobes. This is consistent with a nonspecific infectious/inflammatory pneumonitis. Scarring/atelectasis is noted at the lung bases. There is diffuse peribronchial thickening. The trachea and central airways are clear. Mediastinum: There is no mediastinal lymphadenopathy. Marcie: Clear. Axillae: There is no axillary lymphadenopathy. Upper abdomen: There is a small hiatal hernia. Partially visualized upper abdominal viscera is otherwise within normal limits. Skeletal structures: The skeletal structures are osteopenic. 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 Arthritic change is seen in the shoulders. There are chronic/healed left-sided rib fractures. No lytic or blastic bony lesions are seen. IMPRESSION: 1. There is no evidence of pulmonary embolus in the main, lobar, or segmental pulmonary arteries. 2. Cardiomegaly and mild emphysema. 3. Multifocal patchy ground glass consolidation throughout the right lung is consistent with pneumonia. 4. There is diffuse peribronchial thickening with micronodularity throughout the upper lobes. The appearance favors a bronchitis/bronchiolitis. A follow-up chest CT in 3-4 months time is recommended to document resolution of these findings. 5. No pleural effusion is seen. 6. Additional findings as above. ACT 112: Negative or not required by law. Electronically signed by: Hollis Cardenas M.D. 07/06/2025 3:05 PM PG Care Time/CCT Total # of Minutes Spent Total Time Spent with Patient: Total time spent is greater than 50% in coordination of care (as documented) at patient's floor/unit and/or counseling patient: Coding Level of Care Code 54780 INT INP/OBS CARE 2/55MIN Diagnoses CAP (community acquired pneumonia) J18.9 Chronic pain syndrome G89.4 Lymphedema I89.0 Lumbar radicular pain M54.16 Arthritis M19.90 Sacroiliitis M46.1 Prostate cancer C61 Fibromyalgia M79.7 Raynaud's phenomenon without gangrene I73.00 Raynaud?s-associated gangrene presence: without gangrene Chronic gastroesophageal reflux disease K21.9 Venous insufficiency (chronic) (peripheral) I87.2 Hx of blood clots Z86.718 Primary osteoarthritis, unspecified site M19.91 Osteoarthritis location: unspecified site Osteoarthritis type: primary (9) Raynauds phenomenon Raynaud?s-associated gangrene presence: without gangrene Qualified Code(s): I73.00 - Raynaud's syndrome without gangrene (13) Osteoarthritis Osteoarthritis location: unspecified site Osteoarthritis type: primary Qualified Code(s): M19.91 - Primary osteoarthritis, unspecified site
[2025-07-06] MEDS ORDERED: ALUMINUM/MAGNESIUM SUSP 30 ML UDC PO PRN (19:58)
[2025-07-06] MEDS ORDERED: BENZONATATE 100 MG CAPSULE PO PRN (19:58)
[2025-07-06] MEDS ORDERED: HYDROCORTISONE HC 2.5% CRM 30GM TUBE EXT PRN (19:58)
[2025-07-06] MEDS ORDERED: ONDANSETRON INJ 2 MG/ML 2 ML VIAL IV PRN (19:58)
[2025-07-06] MEDS ORDERED: MAGNESIUM HYDROXIDE SUSP 30 ML UDC PO PRN (19:58)
[2025-07-06] MEDS ORDERED: MELATONIN 3 MG TAB PO PRN (19:58)
[2025-07-06] MEDS ORDERED: ACETAMINOPHEN 325 MG TAB PO PRN (19:58)
[2025-07-06] MEDS ORDERED: ALBUTEROL 0.5% NEB SOLN 2.5 MG/0.5 ML VIAL NEB PRN (19:58)
[2025-07-06] MEDS: guaiFENesin 600 MG TABCR PO SCH (20:57)
[2025-07-06] MEDS: LOVASTATIN 20 MG TAB PO SCH (20:57)
[2025-07-06] MEDS: BACLOFEN 10 MG TAB PO SCH (20:57)
[2025-07-06] MEDS: GABAPENTIN 300 MG CAP PO SCH (20:57)
[2025-07-06] MEDS: DICLOFENAC SODIUM 75 MG TABCR PO SCH (20:57)
[2025-07-06] MEDS: CHOLESTYRAMINE LIGHT 4 GM PKT PO SCH (20:57)
[2025-07-06 23:29] VITALS: PULSE 62
[2025-07-07 00:47] VITALS: O2SAT 95
[2025-07-07 06:21] LABS: Hematocrit (blood only) 36.7 % (42.0-52.0); Hemoglobin 12.4 g/dl (14.0-18.0); Immature Granulocytes # (auto) 0.05 K/uL (0.01-0.20); Immature Granulocytes % (auto) 0.5 %; Mean Corpuscular Hemoglobin 31.5 pg (25.0-34.0); Mean Corpuscular Volume 93.1 fL (80.0-100.0); Platelet Count 166 K/uL (130-400); RDW Standard Deviation 46.1 fL (36.4-46.3); Red Blood Count 3.94 M/uL (4.70-6.10); White Blood Count 10.06 K/ul (4.8-10.8)
[2025-07-07 06:46] LABS: Alanine Aminotransferase 10.0 U/L (7-52); Albumin Globulin Ratio 1.2 (0.9-2); Albumin Level 3.1 gm/dl (3.4-5.0); Alkaline Phosphatase 51.0 U/L (34-104); Anion Gap 7.0 (3-11); Bilirubin,Total 0.8 mg/dl (0.2-1.0); Blood Urea Nitrogen 19.0 mg/dl (6-23); Calcium 8.9 mg/dl (8.6-10.3); Carbon Dioxide 28.0 mmol/L (21-32); Chloride 103.0 mmol/L (98-107); Creatinine Clr Calc Pharmacy 69.6 ml/min; Globulin 2.6 gm/dl (2.5-4.0); Glucose 88.0 mg/dl (70-99(Fasting)); Potassium 4.1 mmol/L (3.5-5.1); Sodium 138.0 mmol/L (136-145); Total Protein 5.7 gm/dl (6.0-8.3)
[2025-07-07 08:00] VITALS: BP 118/67; RESP 15; TEMP 97.7
[2025-07-07] MEDS: FOLIC ACID 1 MG TAB PO SCH (08:28)
[2025-07-07] MEDS: TAMSULOSIN HCL 0.4 MG CAP PO SCH (08:29)
[2025-07-07] MEDS: CHOLECALCIFEROL 125 MCG (5,000 UNITS) TAB PO SCH (08:29)
[2025-07-07] MEDS: ASPIRIN 81 MG ECTAB PO SCH (08:29)
[2025-07-07] MEDS: MULTIVITAMIN TAB PO SCH (08:29)
[2025-07-07] MEDS: VIBEGRON 75 MG TAB PO SCH (08:29)
[2025-07-07] MEDS: CALCIUM 600MG + VIT D 400 IU TAB PO SCH (08:29)
[2025-07-07] MEDS: FUROSEMIDE 20 MG TAB PO SCH (08:29)
[2025-07-07] MEDS: FERROUS SULFATE 325 MG TAB PO SCH (08:29)
[2025-07-07] MEDS: DOXYCYCLINE HYCLATE 100 MG in DEXTROSE 5% MINI-B 100 ML IV SCH (08:34)
--- NOTE | 2025-07-07 11:32 | Discharge Summary ---
Discharge Summary Date of Service July 07, 2025 Principal Dx & Hospital Course #1 = Principal Diagnosis (1) CAP (community acquired pneumonia): (2) Chronic pain syndrome: (3) Lymphedema: (4) Lumbar radicular pain: (5) Arthritis: (6) Sacroiliitis: (7) Prostate cancer: (8) Fibromyalgia: (9) Raynauds phenomenon: (10) Chronic gastroesophageal reflux disease: (11) Venous insufficiency (chronic) (peripheral): (12) Hx of blood clots: (13) Osteoarthritis: Plan #community-acquired pneumonia #bacterial superinfection on viral URI - Rocephin and doxycycline initiated in the emergency department - will continue IV doxycycline, send MRSA swab - Marked improvement with antibiotics and respiratory support through the night. Feels as though his breathing is closer to baseline. Able to be independent up and about the room. Tolerating antibiotics well with no concerns. We discussed close outpatient follow-up for recheck. Long-term follow-up for results of the CT scan. #Peribronchial thickening on CT - recheck recommended in 3-4 months to ensure resolution this would be in around or after October 09, 2025 #chronic venous stasis changes/lymphedema - wraps in place, elevate legs in the evening - continue Lasix 20 mg daily - early ambulation if tolerated #GERD - continue PPI #osteoarthritis #chronic pain - continue baclofen diclofenac and gabapentin #hyperlipidemia continue statin #history of BPH/prostate cancer - continue tamsulosin #depression/anxiety - will continue his trazodone Admission HPI Per Admitting Provider 85-year-old male history of osteoarthritis with multiple orthopedic procedures, history of prostate cancer status posttreatment, nonactive, depression, fibromyalgia, Raynaud's phenomena, GERD, chronic venous insufficiency presents to the emergency department with a 1 week history of mild URI symptoms and a 12-hour history of progressive malaise, weakness, cough, chest pressure, fevers and chills. Patient reports that he has been under quite a bit of stress over the last month because his had a stroke was transferred to [place] there for 8 days is now been within the home but has had substantial disability. Has had mild URI symptoms for about a week this morning went up and went to meet some friends at [place] which is typical for him states that after he woke up he was not feeling all that well had a lot of shaking chills febrile feeling but that intermittently improved he drove himself to [place] and at that time had very severe symptoms felt as though he might even blackout. He summoned to help and had somebody bring him to his home and he was brought here for evaluation. Initial evaluation in the emergency department consistent with rhinovirus/e nterovirus infection with multifocal pneumonia noted on CT scan. He was given Rocephin and doxycycline, fluids for mildly decreased blood pressure and referred to admission for ongoing respiratory support, antibiotic therapy and stabilization of his blood pressures. Discharge Exam Constitutional WD/WN, vitals as above Eyes PERRL, conjunctivae normal, anicteric sclerae Respiratory good arir movement throughout, minimal end expiratory wheezing Cardiovascular RRR, no murmur, no edema Musculoskeletal Chronic venous stasis dressings in place Skin no rashes, warm and dry Discharge Plan Discharge Items Patient Disposition: Home - Self-Care Reason For Visit: CAP Discharge Diagnosis: CAP Condition on Discharge: Good Health Concerns: - Continue the antibiotics (Doxycycline) for the full 7 days - and may be helpful to take a probiotic based yogurt or Lao yogurt once or twice per day at lunchtime to help ease the possible GI effects of the antibiotics. - if you develop worsening shortness of breath, fevers chills or increase in sputum please call or follow-up in the outpatient clinic for recheck - you may be infectious for the next 5-7 days, maintain precautions when around other people that may be susceptible to infections - you were also given Tessalon Perles for cough and Mucinex for congestion, take those on an as needed basis - the CT scan done in the emergency department showed some thickening of the airways that should be rechecked in 3-4 months through your primary clinic. Activity: Resume your previous activity Non-emergency contact: Primary Care Provider Call non-emergency contact if: you have any medication questions, your symptoms worsen and you have a fever Follow-up/Referrals: Gibran Mancuso III, CRNP [Primary Care Provider] - Diet: Regular Addtl Attending Provider Instructions: - repeat CT scan in 3-4 months time was recommended based on diffuse peribronchial thickening noted throughout the upper lobes - routine posthospitalization follow-up, no specific testing requiredt Pending Studies at Discharge: No Studies:: CT PA chest: IMPRESSION: 1. There is no evidence of pulmonary embolus in the main, lobar, or segmental pulmonary arteries. 2. Cardiomegaly and mild emphysema. 3. Multifocal patchy ground glass consolidation throughout the right lung is consistent with pneumonia. 4. There is diffuse peribronchial thickening with micronodularity throughout the upper lobes. The appearance favors a bronchitis/bronchiolitis. A follow-up chest CT in 3-4 months time is recommended to document resolution of these findings. 5. No pleural effusion is seen. 6. Additional findings as above. Stand-Alone Forms: [facility] [employer], Smoking Cessation Medications and DC Order Prescriptions: New benzonatate 100 mg Capsule 100 mg PO TID PRN (Reason: cough) 3 Days Qty: 15 0RF guaifenesin [Mucinex] 600 mg Tablet Extended Release 12hr 600 mg PO Q12 3 Days Qty: 6 0RF doxycycline monohydrate 100 mg capsule 100 mg PO BID 7 Days Qty: 14 0RF Continued calcium carbonate-vitamin D3 [Calcium with Vitamin D] 600 mg-10 mcg (400 unit) tablet 1 tab PO DAILY baclofen 10 mg tablet 10 mg PO BID gabapentin 300 mg capsule 300 mg PO TID Qty: 270 3RF hydrocortisone [Proctosol HC] 2.5 % cream with perineal applicator 1 applic AR DAILY PRN (Reason: pain) Qty: 30 3RF folic acid 1 mg tablet 6 mg PO QAM Qty: 540 3RF trazodone 100 mg tablet 100 mg PO HS Qty: 90 3RF cholecalciferol (vitamin D3) 125 mcg (5,000 unit) capsule 125 mcg PO QAM ferrous sulfate 325 mg (65 mg iron) tablet 325 mg PO QAM furosemide 20 mg tablet 20 mg PO DAILY tamsulosin 0.4 mg capsule 0.4 mg PO DAILY Qty: 90 3RF vibegron 75 mg tablet 75 mg PO DAILY Qty: 30 2RF multivitamin [Daily-Robinson] Tablet 1 tab PO QAM Qty: 30 0RF aspirin 81 mg tablet,delayed release (DR/EC) 81 mg PO QAM Rx Instructions: OTC lovastatin 40 mg tablet 40 mg PO QPM esomeprazole magnesium 40 mg capsule,delayed release(DR/EC) 40 mg PO QPM Rx Instructions: TAKE 1 CAPSULE BY MOUTH DAILY IN THE EVENING nystatin-triamcinolone 100,000-0.1 unit/g-% cream 1 applic topical BID PRN (Reason: NEEDED) diclofenac sodium 75 mg tablet,delayed release (DR/EC) 75 mg PO BID Rx Instructions: TAKE 1 TABLET BY MOUTH TWICE A DAY cholestyramine (with sugar) 4 gram powder 4 ea PO BIDM Rx Instructions: TAKE 4 GRAMS BY MOUTH TWICE DAILY, ADMINISTER WITH A MEAL AVOID OTHER MEDICATIONS WITHINE 1 HOUR BEFORE OF 4-6 HOURS AFTER DOSE Discharge Orders: Discharge Order (Routine); Ordered 07/07/25 Ordered By: Marcelino Alves/Other Patient Handouts: When You Have Pneumonia Admission Data Admit Date/Time: 07/06/25 16:38 Attending Provider: Marcelino Phipps Admit Provider: Marcelino Phipps Primary Care Provider: Gibran Mancuso III Other Providers: Marcelino Phipps Hospital Stay Data Consultations 07/06/25 15:18 ED Decision to Admit Stat Diagnostic Imagining Performed 07/06/25 12:23 CT head/brain wo con Stat 07/06/25 13:56 CT abd pelvis IV con only Stat CT angio chest PE protocol Stat Pending Results Patient Have Any Pending Studies at Discharge: No Discharge Instructions Given to Patient (Per Discharging Provider) - repeat CT scan in 3-4 months time was recommended based on diffuse peribronchial thickening noted throughout the upper lobes - routine posthospitalization follow-up, no specific testing requiredt Total Time Total Time Spent Total Time Spent (In Minutes): 25 minutes spent discussing medcations, follow-up plan and discharge needs// Coding Level of Care Code 61862 IN/OBS DISCH 30 MIN/LESS Diagnoses CAP (community acquired pneumonia) J18.9 Chronic pain syndrome G89.4 Lymphedema I89.0 Lumbar radicular pain M54.16 Arthritis M19.90 Sacroiliitis M46.1 Prostate cancer C61 Fibromyalgia M79.7 Raynaud's phenomenon without gangrene I73.00 Raynaud?s-associated gangrene presence: without gangrene Chronic gastroesophageal reflux disease K21.9 Venous insufficiency (chronic) (peripheral) I87.2 Hx of blood clots Z86.718 Primary osteoarthritis, unspecified site M19.91 Osteoarthritis location: unspecified site Osteoarthritis type: primary
--- NOTE | 2025-07-08 23:06 | Electrocardiogram Report ---
Test Reason : Blood Pressure : */* mmHG Vent. Rate : 77 BPM Atrial Rate : 77 BPM P-R Int : 186 ms QRS Dur : 96 ms QT Int : 426 ms P-R-T Axes : 67 65 70 degrees QTcB Int : 482 ms Sinus rhythm with Premature atrial complexes Normal ECG When compared with ECG of 22-Jun-2022 18:48, Premature atrial complexes are now Present Confirmed by Stephon Larkin ([id number]) on 07/08/2025 11:05:56 PM Referred By: Confirmed By: Stephon Larkin
== END 2025-07-07 12:15 | disposition home or self-care (01) | DRG 195 ==
LOC: ED 11:56 → 3E 16:38 → INTOOBSV 16:38 → 3E 18:30